=== PATIENT | female | born 1945 | race Caucasian/White ===

== ENCOUNTER 2017-10-19 08:40 | Outpatient (CLI) | payer MEDICARE, OTHER ==
--- NOTE | 2017-10-19 12:46 | DEXA Report ---
Reason: OSTEOPOROSIS,UNSPECIFIED OSTEOPOROSIS TYPE Procedure Date: 10/19/2017 Accession Number: [id number] / [id number] Procedure: DEX - Dexa Spine and/or Hip CPT Code: FULL RESULT: EXAM: Dexa Spine and/or Hip DATE: 10/19/2017 9:09 AM CLINICAL HISTORY: Osteoporosis, unspecified OSTEOPOROSIS TYPE TECHNIQUE: Dual energy x-ray absorptiometry (DXA) was performed on a FaceAlert[employer] System. Regions measured are the AP Spine, femoral neck, and if needed forearm. COMPARISON: None. In accordance with the International Society for Clinical Densitometry (ISCD) guidelines, data from previous exams may be reanalyzed using current recommendations and techniques. This is done to allow a more accurate basis for comparison with the current study. FINDINGS: The data for the lumbar spine is as follows: BMD (g/cm/cm) T-SCORE Z-SCORE REGION L1 0.944 -1.6 0.1 L2 1.086 -1.0 0.7 L3 1.085 -1.0 0.7 L4 1.066 -1.1 0.5 TOTAL 1.049 -1.1 0.5 NOTE: All evaluable vertebrae are used for classification The data for the hip is as follows: BMD (g/cm/cm) T-SCORE Z-SCORE REGION Neck 0.820 -1.6 0.1 TOTAL 0.860 -1.2 0.3 NOTE: The femoral neck or total proximal femur, whichever is lowest, is used for classification. IMPRESSION: THE WHO CLASSIFICATION BASED ON THE INTERNATIONAL REFERENCE STANDARD IS OSTEOPENIA. THE FRACTURE RISK IS INCREASED. RECOMMENDATION: Patients with diagnosis of osteoporosis or osteopenia should have regular bone mineral density assessment. For those eligible for Medicare, routine testing is allowed once every 2 years. Testing frequency can be increased for patients who have rapidly progressing disease or for those who are receiving medical therapy to restore bone mass. COMMENT: World Health Organization (WHO) definitions for osteoporosis and osteopenia: NORMAL BMD: T-score at -1.0 or higher, fracture risk is low OSTEOPENIA BMD: T-score between -1.0 and -2.5, fracture risk is increased. OSTEOPOROSIS BMD: T-score at -2.5 or lower, fracture risk is high. National Osteoporosis Foundation recommends: 1. Obtain adequate dietary calcium (at least 1200 mg per day) and vitamin D (400-800 international units per day). 2. Participate, as appropriate, in regular weightbearing and muscle-strengthening exercise. 3. Avoid tobacco use and reduce alcohol and caffeine intake. 4. For more detailed information see the website at www.NOF.org.
== END 2017-10-19 08:41 | disposition home or self-care (01) ==
LOC: DI 08:40
PROVIDERS: ATTEND Family Medicine Sports Medicine
DX: M85.89 Other specified disorders of bone density and structure, multiple sites (principal)
CPT/HCPCS: 77080

== ENCOUNTER 2017-10-19 16:48 | Emergency (ER) | payer MEDICARE, OTHER ==
--- NOTE | 2017-10-19 19:07 | ED Physician Documentation ---
PD HPI FOCAL NEURO - Stated complaint Stated Complaint: LEFT FACE/HAND TINGLE - Chief complaint Chief Complaint: Neuro - History obtained from History obtained from: Patient - History of Present Illness Timing - onset: Other (72-year-old woman who has what she says was a TIA 2 months ago with left-sided deficits. She always had persistent numbness of the left thumb over the last 2 weeks that numbness has spread to the left second and third digits and over the last 2 days has had numbness of the fourth and fifth digits as well as the face. It is incomplete. It is just tingling. There is no associated weakness with it. No nausea or severe headache. No vision complaints. She said she had an MRI on that admission that was negative and carotid Dopplers that showed a 50% stenosis of the left carotid without clear follow-up. She is on aspirin.) Review of Systems Constitutional: denies: Fever, Chills Respiratory: reports: Reviewed and negative GI: reports: Reviewed and negative : reports: Reviewed and negative PD PAST MEDICAL HISTORY - Allergies Allergies/Adverse Reactions: Allergies Allergy/AdvReac Type Severity Reaction Status Date / Time No Known Drug Allergies Allergy Verified 10/19/17 17:11 PD ED PE NORMAL - Vitals Vital signs reviewed: Yes - General General: Alert and oriented X 3, No acute distress - HEENT HEENT: PERRL, EOMI - Neck Neck: Supple, no meningeal sign, No bony TTP - Cardiac Cardiac: RRR, No murmur - Respiratory Respiratory: Clear bilaterally - Abdomen Abdomen: Non tender - Neuro Neuro: Alert and oriented X 3, acoustical engineer 2-12 intact Eye Opening: Spontaneous Motor: Obeys Commands Verbal: Oriented GCS Score: 15 NIHSS - Time Time: 19:00 - Level of Consciousness Level of consciousness: (0) Alert, Keenly responsive LOC Questions: (0) Answers both Q's correct LOC Commands: (0) Performs both correctly - Gaze Best Gaze: (0) Normal - Visual Visual: (0) No loss - Facial Palsy Facial Palsy: (0) Normal, symmetrical movement - Motor Arms (both separate) Motor Arm (right): (0) No drift Motor Arm (left): (0) No drift - Motor Legs (both separate) Motor Leg (right): (0) No drift Motor Leg (left): (0) No drift - Limb Ataxia Limb Ataxia: (0) Absent - Sensory Sensory: (1) Xnaw-sy-ffplyhse loss (Very mild loss on the left hand ulnar side and left face.) - Best Language Best Language: (0) No aphasia - Dysarthria Dysarthria: (0) Normal - Extinction and Inattention (formally neg Extinction and inattention: (0) No abnormality - Total Score/Results Total Score/Result: 1 Results - Vitals Vitals: Vital Signs - 24 hr 10/19/17 17:00 Temperature 36.3 C L Heart Rate 74 Respiratory 16 Rate Blood Pressure 140/79 H O2 Saturation 97 Oxygen O2 Source Room air - Labs Labs: Laboratory Tests 10/19/17 10/19/17 19:12 19:12 WBC 4.7 L RBC 4.42 Hgb 12.1 Hct 36.1 L MCV 81.5 MCH 27.3 MCHC 33.4 RDW 15.8 H Plt Count 163 MPV 7.5 L Neut # (Auto) 2.5 Lymph # (Auto) 1.8 [place] # (Auto) 0.3 Eos # (Auto) 0.1 Baso # (Auto) 0.0 Absolute Nucleated RBC 0.00 Nucleated RBC % 0.0 Sodium 137 Potassium 3.4 L Chloride 103 Carbon Dioxide 25 Anion Gap 9.0 BUN 27 H Creatinine 1.1 H Estimated GFR (MDRD) 49 L Glucose 123 H Calcium 9.5 Total Bilirubin 0.2 AST 30 ALT 23 Alkaline Phosphatase 78 Total Protein 7.5 Albumin 4.5 Globulin 3.0 Albumin/Globulin Ratio 1.5 Lipase 88 H - Rads (name of study) Ct Head Radiology: Final report received (Mild scattered microangiopathy changes without acute disease.) PD MEDICAL DECISION MAKING - ED course ED course: 72-year-old woman who had what sounds like small stroke 2 months ago albeit with normal MRI per her presents with mild but progressive symptoms, in the setting of a negative head CT. Neurologic follow-up was advised. - Sepsis Event Vital Signs: Vital Signs - 24 hr 10/19/17 17:00 Temperature 36.3 C L Heart Rate 74 Respiratory 16 Rate Blood Pressure 140/79 H O2 Saturation 97 Oxygen O2 Source Room air Departure - Departure Disposition: 01 Home, Self Care Clinical Impression: Stroke-like symptoms Condition: Good Record reviewed to determine appropriate education?: Yes Instructions: ED Stroke Completed Comments: Continue current medications. Follow-up with your doctor and discuss neurologic referral.
[2017-10-19 19:18] LABS: BASOPHILS % (AUTO) 0.3 %; EOSINOPHILS # (AUTO) 0.1 10^3/uL (0.0-0.7); HGB - HEMOGLOBIN 12.1 g/dL (12.0-16.0); LYMPHOCYTES # (AUTO) 1.8 10^3/uL (1.5-3.5); LYMPHOCYTES % (AUTO) 38.4 %; MEAN CORPUSCULAR HEMOGLOBIN 27.3 pg (27.0-31.0); MEAN CORPUSCULAR HGB CONC 33.4 g/dL (32.0-36.0); MEAN CORPUSCULAR VOLUME 81.5 fL (81.0-99.0); MEAN PLATELET VOLUME 7.5 fL (7.9-10.8); MONOCYTES # (AUTO) 0.3 10^3/uL (0.0-1.0); MONOCYTES % (AUTO) 5.5 %; NEUTROPHILS # (AUTO) 2.5 10^3/uL (1.5-6.6); NEUTROPHILS % (AUTO) 53.8 %; PLT - PLATELET COUNT 163 10^3/uL (130-450); RED BLOOD COUNT 4.42 10^6/uL (4.20-5.40); RED CELL DISTRIBUTION WIDTH 15.8 % (12.0-15.0); WHITE BLOOD COUNT 4.7 x10^3/uL (4.8-10.8)
[2017-10-19 19:32] LABS: ALBUMIN 4.5 g/dL (3.2-5.5); ALBUMIN/GLOBULIN RATIO 1.5 (1.0-2.2); BILIRUBIN,TOTAL 0.2 mg/dL (0.2-1.0); CALCIUM 9.5 mg/dL (8.5-10.3); CREATININE 1.1 mg/dL (0.4-1.0); TOTAL PROTEIN 7.5 g/dL (6.7-8.2)
--- NOTE | 2017-10-19 20:05 | CT Report ---
Reason: L hand numb Procedure Date: 10/19/2017 Accession Number: [id number] / [id number] Procedure: CT - Head W/O CPT Code: FULL RESULT: EXAM: CT HEAD EXAM DATE: 10/19/2017 07:22 PM. CLINICAL HISTORY: L hand numb. COMPARISON: None. TECHNIQUE: Multiaxial CT images were obtained from the foramen magnum to the vertex. Reformats: Sagittal and coronal. IV contrast: None. In accordance with CT protocol optimization, one or more of the following dose reduction techniques were utilized for this exam: automated exposure control, adjustment of mA and/or KV based on patient size, or use of iterative reconstructive technique. FINDINGS: Parenchyma: No intraparenchymal hemorrhage. No evidence of mass, midline shift, or CT findings of infarction. Carvalho-white differentiation is distinct. Scattered periventricular and deep white matter hypodensities, nonspecific, favored to represent sequela of chronic microangiopathy. Extraaxial Spaces: Normal for age. No subdural or epidural collections identified. Ventricles: Normal in size and position. Sinuses and Orbits: Imaged paranasal sinuses, orbits, and mastoids show no significant abnormality. Bones: No evidence of fracture or calvarial defect. Other: None. IMPRESSION: 1. No CT evidence of acute intracranial abnormality, specifically no CT evidence of acute infarct, intracranial hemorrhage, mass effect, midline shift, or hydrocephalus. 2. Scattered periventricular and deep white matter hypodensities, nonspecific, favored to represent sequela of chronic microangiopathy. RADIA
[2017-10-19 20:27] VITALS: BP 172/53
== END 2017-10-19 20:30 | disposition home or self-care (01) ==
LOC: ED 16:48
DX: R20.0 Anesthesia of skin (principal); M85.89 Other specified disorders of bone density and structure, multiple sites; Z86.73 Personal history of transient ischemic attack (TIA), and cerebral infarction without residual deficits; Z79.82 Long term (current) use of aspirin
CPT/HCPCS: 36415; 70450; 77080; 80053; 83690; 85025; 99283; 99284

== ENCOUNTER 2018-02-11 15:33 | Emergency (ER) | payer MEDICARE, OTHER ==
--- NOTE | 2018-02-11 15:57 | ED Physician Documentation ---
History of Present Illness - Stated complaint Stated Complaint: WEAKNESS/CONFUSION - Chief complaint Chief Complaint: Neuro - Additonal information Additional information: hx from pt and family 72 female has alzheimers lives at [facility] to ED today CC confusion and falls X several days no fever no cough no NVD no headache does not think she hit her head (she fell in her closet which is full of clothes and thus well padded) no neck pain no chest pain no abdominal pain does have urinary freq no new med changes but unclear how correctly she has been managing her meds at home - the list from her PMD has many meds crossed out that are still in pts med basket Review of Systems Constitutional: denies: Fever, Chills Throat: denies: Sore throat Cardiac: denies: Chest pain / pressure, Palpitations Respiratory: denies: Dyspnea, Cough GI: denies: Abdominal Pain, Nausea, Vomiting, Diarrhea : denies: Dysuria Musculoskeletal: denies: Neck pain, Back pain Neurologic: reports: Altered mental status. denies: Focal weakness, Numbness, Difficulty speaking, Headache, Head injury Immunocompromised: denies: Immunocompromised PD PAST MEDICAL HISTORY - Present Medications Home Medications: Ambulatory Orders Medication Instructions Recorded Confirmed Cephalexin [Keflex] 500 mg PO Q6H #28 capsule 02/11/18 - Allergies Allergies/Adverse Reactions: Allergies Allergy/AdvReac Type Severity Reaction Status Date / Time No Known Drug Allergies Allergy Verified 10/19/17 17:11 PD ED PE NORMAL - Vitals Vital signs reviewed: Yes - General General: No: Alert and oriented X 3 (2) - HEENT HEENT: Atraumatic, PERRL - Neck Neck: Supple, no meningeal sign - Cardiac Cardiac: RRR - Respiratory Respiratory: No respiratory distress, Clear bilaterally - Abdomen Abdomen: Non tender - Derm Derm: Normal color - Neuro Neuro: grievance and appeals specialist 2-12 intact, No motor deficit, No sensory deficit, Normal speech, Other (NIHSS 1 (for confusion) no focal motor sensory speech vision hearing deficits). No: Alert and oriented X 3 (X 2) Results - Vitals Vitals: Vital Signs - 24 hr 02/11/18 15:45 Temperature 36.3 C L Heart Rate 73 Respiratory 18 Rate Blood Pressure 143/70 H O2 Saturation 97 Oxygen O2 Source Room air - EKG (time done) 1542 Rate: Rate (enter#) Rhythm: NSR, Other (PVCs) Intervals: Normal GA. No: Prolonged QT QRS: Normal Ischemia: Non specific changes - Labs Labs: Laboratory Tests 02/11/18 02/11/18 02/11/18 16:35 16:35 16:35 WBC 4.4 L RBC 4.35 Hgb 12.1 Hct 36.6 L MCV 84.2 MCH 27.7 MCHC 32.9 RDW 15.2 H Plt Count 168 MPV 7.7 L Neut # (Auto) 2.5 Lymph # (Auto) 1.5 [place] # (Auto) 0.3 Eos # (Auto) 0.1 Baso # (Auto) 0.0 Absolute Nucleated RBC 0.00 Nucleated RBC % 0.0 Sodium 138 Potassium 4.3 Chloride 100 L Carbon Dioxide 25 Anion Gap 13.0 BUN 23 H Creatinine 1.5 H Estimated GFR (MDRD) 34 L Glucose 99 Calcium 10.7 H Troponin I < 0.04 Urine Color Urine Clarity Urine pH Ur Specific [place] Urine Protein Urine Glucose (UA) Urine Ketones Urine Occult Blood Urine Nitrite Urine Bilirubin Urine Urobilinogen Ur Leukocyte Esterase Urine RBC Urine WBC Ur Squamous Epith Cells Urine Bacteria Ur Microscopic Review Urine Culture Comments 02/11/18 17:00 WBC RBC Hgb Hct MCV MCH MCHC RDW Plt Count MPV Neut # (Auto) Lymph # (Auto) [place] # (Auto) Eos # (Auto) Baso # (Auto) Absolute Nucleated RBC Nucleated RBC % Sodium Potassium Chloride Carbon Dioxide Anion Gap BUN Creatinine Estimated GFR (MDRD) Glucose Calcium Troponin I Urine Color YELLOW Urine Clarity CLEAR Urine pH 7.5 Ur Specific [place] 1.015 Urine Protein NEGATIVE Urine Glucose (UA) NEGATIVE Urine Ketones NEGATIVE Urine Occult Blood NEGATIVE Urine Nitrite NEGATIVE Urine Bilirubin NEGATIVE Urine Urobilinogen 0.2 (NORMAL) Ur Leukocyte Esterase SMALL H Urine RBC None Seen Urine WBC 4-5 Ur Squamous Epith Cells MANY Squamous H Urine Bacteria Few Ur Microscopic Review INDICATED Urine Culture Comments NOT INDICATED - Rads (name of study) CXR Radiology: See rad report (mild cardiomegaly, otherwise no acute) CTH Radiology: See rad report (no acute process, chronic atrophic and likely microvascular ischemic changes) PD MEDICAL DECISION MAKING - ED course ED course: renal insuff is new elev calcium level also new but doubt high enough to cause confusion merit outpt fup UA not a good clean catch but best she could do and + leuk est WBC bacteria - and she has sx of freq so will tx suspect weakness confusion and falls are a combo of UTI and medications - while in the ER her daughter went through the updated list from PMD and removed all the meds the pt is no longer supposed to be taking from her basket road test with a walker went well pt lives at [facility] where she can be observed and assisted and has a very watchful daughter feel safe to dc with a walker on antibiotics on her new pruned medication regimen Departure - Departure Disposition: Home, Self Care Clinical Impression: Weakness, Confusion UTI (urinary tract infection) Qualifiers: Urinary tract infection type: site unspecified Hematuria presence: without hematuria Qualified Code(s): N39.0 - Urinary tract infection, site not specified Condition: Good Instructions: ED UTI Cystitis Female, ED Walker Use, ED Fall Dizziness Weakn Balance Follow-Up: Manny Greenfield MD [Primary Care Provider] - Prescriptions: Cephalexin [Keflex] 500 mg PO Q6H #28 capsule Comments: The CT scan of your brain was fine. The chest xray was fine Your EKG showed a few extra beats but otherwise was fine Your labs were notable for renal insufficiency and a slightly elevated calcium level today - these results are unlikely to be related to your symptoms - please follow up with your PMD for a recheck and further evaluation I think the weakness and confusion are due to 2 things 1) you have a bladder infection 2) you had medications in your basket that you are not supposed to be taking any more Given he reassuring work up, an since you live at [facility], where there is staff to observe and assist you, I think it is safe to let you go home. Please ask for assistance when getting up to transfer or ambulate - and use the walker we gave you. Take the antibiotics I prescribed. And only take the medication on the new updated list your daughter has finalized for you Follow up with Dr Greenfield for a recheck next week. Return to the ER if worse in any way over the weekend - we are always open
--- NOTE | 2018-02-11 16:35 | CT Report ---
Reason: AMS falling Procedure Date: 02/11/2018 Accession Number: [id number] / [id number] Procedure: CT - Head W/O CPT Code: FULL RESULT: EXAM: CT HEAD EXAM DATE: 02/11/2018 04:11 PM. CLINICAL HISTORY: Altered mental status. Multiple falls. COMPARISON: HEAD W/O 10/19/2017 7:22 PM. TECHNIQUE: Multiaxial CT images were obtained from the foramen magnum to the vertex. Reformats: Sagittal and coronal. IV contrast: None. In accordance with CT protocol optimization, one or more of the following dose reduction techniques were utilized for this exam: automated exposure control, adjustment of mA and/or KV based on patient size, or use of iterative reconstructive technique. FINDINGS: Parenchyma: No intraparenchymal hemorrhage. No evidence of mass, midline shift, or CT findings of infarction. Carvalho-white differentiation is distinct. Mild to moderate patchy white matter hypodensity in the periventricular white matter and centrum semiovale suggesting chronic microvascular ischemic change. Extraaxial Spaces: Normal for age. No subdural or epidural collections identified. Ventricles: Normal in size and position aircraft pneudraulic systems mechanic for mild generalized cerebral and cerebellar volume loss. Sinuses and Orbits: Imaged paranasal sinuses, orbits, and mastoids show no significant abnormality. Bones: No evidence of fracture or calvarial defect. Other: None. IMPRESSION: 1. No definite acute intracranial abnormality. 2. Chronic atrophic and probable microvascular ischemic changes as noted above. RADIA
[2018-02-11 16:43] LABS: BASOPHILS % (AUTO) 0.6 %; EOSINOPHILS # (AUTO) 0.1 10^3/uL (0.0-0.7); EOSINOPHILS % (AUTO) 1.9 %; HGB - HEMOGLOBIN 12.1 g/dL (12.0-16.0); LYMPHOCYTES # (AUTO) 1.5 10^3/uL (1.5-3.5); LYMPHOCYTES % (AUTO) 34.8 %; MEAN CORPUSCULAR HEMOGLOBIN 27.7 pg (27.0-31.0); MEAN CORPUSCULAR HGB CONC 32.9 g/dL (32.0-36.0); MEAN CORPUSCULAR VOLUME 84.2 fL (81.0-99.0); MEAN PLATELET VOLUME 7.7 fL (7.9-10.8); MONOCYTES # (AUTO) 0.3 10^3/uL (0.0-1.0); MONOCYTES % (AUTO) 5.8 %; NEUTROPHILS # (AUTO) 2.5 10^3/uL (1.5-6.6); NEUTROPHILS % (AUTO) 56.9 %; PLT - PLATELET COUNT 168 10^3/uL (130-450); RED BLOOD COUNT 4.35 10^6/uL (4.20-5.40); RED CELL DISTRIBUTION WIDTH 15.2 % (12.0-15.0); WHITE BLOOD COUNT 4.4 x10^3/uL (4.8-10.8)
--- NOTE | 2018-02-11 16:50 | XRAY Report ---
Reason: ams Procedure Date: 02/11/2018 Accession Number: [id number] / [id number] Procedure: XR - Chest 2 View X-Ray CPT Code: 05169 FULL RESULT: EXAM: CHEST RADIOGRAPHY EXAM DATE: 02/11/2018 04:27 PM. CLINICAL HISTORY: Altered mental status. COMPARISON: None. TECHNIQUE: 2 views. FINDINGS: Lungs/Pleura: No focal opacities evident. No pleural effusion. No pneumothorax. Normal volumes. Mediastinum: Mild cardiomegaly. Other: No compression fractures. IMPRESSION: Mild cardiomegaly, otherwise unremarkable 2-view chest radiography. RADIA
[2018-02-11 16:52] LABS: CALCIUM 10.7 mg/dL (8.5-10.3); CREATININE 1.5 mg/dL (0.4-1.0)
[2018-02-11 17:34] LABS: BILIRUBIN,URINE NEGATIVE (NEGATIVE); GLUCOSE, URINE (UA) NEGATIVE (NEGATIVE); KETONES,URINE (UA) NEGATIVE (NEGATIVE); LEUKOCYTE ESTERASE, URINE SMALL (NEGATIVE); NITRITE,URINE NEGATIVE (NEGATIVE); OCCULT BLOOD,URINE NEGATIVE (NEGATIVE); PH,URINE 7.5 PH (5.0-7.5); PROTEIN,URINE NEGATIVE (NEGATIVE); UROBILINOGEN,URINE 0.2 (NORMAL) E.U./dL (NORMAL)
[2018-02-11 17:38] LABS: CLARITY,URINE CLEAR (CLEAR)
[2018-02-11 17:43] LABS: BACTERIA,URINE Few /HPF (None Seen); RBC,URINE None Seen /HPF (0-5); SQUAMOUS EPITHELIAL CELL,UR MANY Squamous (<= Few)
[2018-02-11] MEDS ORDERED: cephALEXin 250 MG CAPSULE PO STA (17:57)
[2018-02-11 18:22] VITALS: BP 138/70
== END 2018-02-11 18:22 | disposition home or self-care (01) ==
LOC: ED 15:33
DX: R53.1 Weakness (principal); R41.0 Disorientation, unspecified; N39.0 Urinary tract infection, site not specified; G30.9 Alzheimer's disease, unspecified; F02.80 Dementia in other diseases classified elsewhere, unspecified severity, without behavioral disturbance, psychotic disturbance, mood disturbance, and anxiety
CPT/HCPCS: 36415; 70450; 71046; 80048; 81001; 84484; 85025; 93005; 99283; 99284; A9270; 81003; 87086

== ENCOUNTER 2018-04-03 12:13 | Emergency (ER) | payer MEDICARE, OTHER ==
--- NOTE | 2018-04-03 12:40 | ED Physician Documentation ---
PD HPI ALTERED MENTAL STATUS - Stated complaint Stated Complaint: GLF - Chief complaint Chief Complaint: General - History obtained from History obtained from: Patient - History of Present Illness Timing - onset: How many weeks ago (The patient and her daughter are present and states she has had progressive weakness as well as some confusion over the last couple of weeks. This is been to the point of needing a walker now which is unusual for her. She states she is has difficulty getting up and walking. She has not noticed problems with hand dexterity or holding things. She has been slow to answer questions at times and mostly is been able to talk in normal conversation. She did have a fall 2 days ago where she fell out of bed against the wall. She denied any injury to the head or neck though. She states she is felt more weak generally since that time. She has not had a noticed weight loss.) Timing - duration: Weeks (2) Timing - details: Gradual onset Quality / character: Confused, Other (general weakness) Associated symptoms: General weakness. No: Fever, Headache, Dyspnea, Cough, NVD, Urinary sx Contributing factors: Recent med change (Her medication list from [facility] sent with her shows a new medication of bupropion started 1 month ago. Other medic ations except for a foot cream are the same for several months or more. She does take a statin medication but says she has been on that for a long time.). No: Anticoagulated Basline status: Alert and oriented X 3, Ambulatory Similar symptoms before: Has not had sx before Recently seen: Clinic (1 month ago) Review of Systems Constitutional: reports: Fatigue. denies: Fever, Chills, Myalgias Nose: denies: Rhinorrhea / runny nose, Congestion Throat: denies: Sore throat Respiratory: denies: Cough GI: denies: Abdominal Pain, Nausea, Vomiting, Diarrhea : denies: Dysuria, Frequency Skin: denies: Rash, Lesions Neurologic: reports: Generalized weakness (more of the proximal muscles rather than hands/feet), Confused. denies: Focal weakness, Numbness, Near syncope, Altered mental status, Headache Psychiatric: denies: Anxiety, Insomnia PD PAST MEDICAL HISTORY - Past Medical History Cardiovascular: Hypertension, High cholesterol Respiratory: COPD Neuro: TIA Endocrine/Autoimmune: Type 2 diabetes - Past Surgical History Past Surgical History: Yes General: Cholecystectomy, Appendectomy Ortho: Rotator cuff repair, Other - Present Medications Home Medications: Ambulatory Orders Medication Instructions Recorded Confirmed Cephalexin [Keflex] 500 mg PO Q6H #28 capsule 02/11/18 - Allergies Allergies/Adverse Reactions: Allergies Allergy/AdvReac Type Severity Reaction Status Date / Time No Known Drug Allergies Allergy Verified 04/03/18 12:25 - Social History Does the pt smoke?: No Smoking Status: Never smoker Does the pt drink ETOH?: Yes Does the pt have substance abuse?: No - Immunizations Immunizations are current?: Yes PD ED PE NORMAL - Vitals Vital signs reviewed: Yes - General General: Alert and oriented X 3, No acute distress, Well developed/nourished - HEENT HEENT: Ears normal, Pharynx benign - Neck Neck: Supple, no meningeal sign, No adenopathy, Thyroid normal - Cardiac Cardiac: RRR, No murmur - Respiratory Respiratory: No respiratory distress, Clear bilaterally - Abdomen Abdomen: Normal bowel sounds, Soft, Non tender - Female Female : Deferred - Rectal Rectal: Deferred - Back Back: No CVA TTP - Derm Derm: Normal color, Warm and dry - Extremities Extremities: No tenderness to palpate, Normal ROM s pain, No edema, No calf tenderness / cord - Neuro Neuro: Alert and oriented X 3, patient partner 2-12 intact, No sensory deficit, Normal speech. No: No motor deficit ([facility] counseling [facility] manager and plantar flexion seems strong. She does have most difficulty with leg raise and hip flexion and arm lift so seems to be more proximal and trunk muscles. She requires help getting to sit up from lying in the bed.) Eye Opening: Spontaneous Motor: Obeys Commands Verbal: Oriented GCS Score: 15 Results - Vitals Vitals: Vital Signs - 24 hr 04/03/18 04/03/18 04/03/18 12:18 14:18 16:00 Temperature 36.3 C L 36.4 C L Heart Rate 72 67 66 Respiratory 18 18 16 Rate Blood Pressure 140/81 H 152/64 H 139/69 H O2 Saturation 96 95 95 Oxygen O2 Source Room air - Labs Labs: Laboratory Tests 04/03/18 04/03/18 04/03/18 14:15 14:15 14:15 WBC 5.8 RBC 4.54 Hgb 12.8 Hct 37.5 MCV 82.7 MCH 28.1 MCHC 34.0 RDW 14.3 Plt Count 161 MPV 7.8 L Neut # (Auto) 3.5 Lymph # (Auto) 1.8 [place] # (Auto) 0.3 Eos # (Auto) 0.1 Baso # (Auto) 0.0 Absolute Nucleated RBC 0.00 Nucleated RBC % 0.0 ESR Sodium 140 Potassium 3.9 Chloride 102 Carbon Dioxide 25 Anion Gap 13.0 BUN 24 H Creatinine 1.6 H Estimated GFR (MDRD) 32 L Glucose 80 Lactic Acid 1.2 Calcium 10.6 H Magnesium 1.3 L Total Bilirubin 0.8 AST 32 ALT 22 Alkaline Phosphatase 83 Total Creatine Kinase 33 Total Protein 7.4 Albumin 4.7 Globulin 2.7 Albumin/Globulin Ratio 1.7 Lipase 57 H TSH Urine Color Urine Clarity Urine pH Ur Specific [place] Urine Protein Urine Glucose (UA) Urine Ketones Urine Occult Blood Urine Nitrite Urine Bilirubin Urine Urobilinogen Ur Leukocyte Esterase Urine RBC Urine WBC Ur Squamous Epith Cells Urine Bacteria Ur Microscopic Review Urine Culture Comments Ethyl Alcohol < 5.0 04/03/18 04/03/18 04/03/18 14:15 14:15 Unknown WBC RBC Hgb Hct MCV MCH MCHC RDW Plt Count MPV Neut # (Auto) Lymph # (Auto) [place] # (Auto) Eos # (Auto) Baso # (Auto) Absolute Nucleated RBC Nucleated RBC % ESR 23 Sodium Potassium Chloride Carbon Dioxide Anion Gap BUN Creatinine Estimated GFR (MDRD) Glucose Lactic Acid Calcium Magnesium Total Bilirubin AST ALT Alkaline Phosphatase Total Creatine Kinase Total Protein Albumin Globulin Albumin/Globulin Ratio Lipase TSH 1.46 Urine Color YELLOW Urine Clarity HAZY Urine pH 7.5 Ur Specific [place] 1.015 Urine Protein NEGATIVE Urine Glucose (UA) NEGATIVE Urine Ketones NEGATIVE Urine Occult Blood NEGATIVE Urine Nitrite NEGATIVE Urine Bilirubin NEGATIVE Urine Urobilinogen 0.2 (NORMAL) Ur Leukocyte Esterase TRACE H Urine RBC 0-5 Urine WBC 0-3 Ur Squamous Epith Cells MOD Squamous H Urine Bacteria Few Ur Microscopic Review INDICATED Urine Culture Comments NOT INDICATED Ethyl Alcohol - Rads (name of study) head CT Radiology: Prelim report reviewed (no acute injury/process), See rad report chest xray Radiology: Prelim report reviewed (no infiltrates.) PD MEDICAL DECISION MAKING - ED course Complexity details: reviewed results, considered differential, d/w patient, d/w family (daughter) Departure - Departure Disposition: 01 Home, Self Care Clinical Impression: Proximal muscle weakness, Confusion Condition: Stable Record reviewed to determine appropriate education?: Yes Instructions: ED Weakness UKO Follow-Up: Manny Greenfield MD [Primary Care Provider] - Comments: Your basic CT scan and blood tests and urine test appear normal here. In terms might relate to medications. Certainly proximal muscle weakness is in frequent but known side effect of the statin medications. I would suggest stopping your atorvastatin. The Wellbutrin was the most recent medication change and what with the onset of your symptoms so I would suggest decreasing the Wellbutrin dose back down to 150 or even 100 mg. You have slightly elevated calcium level so we can decrease the calcium dosage as well. Stay well-hydrated. I might also consider decreasing the metoclopramide from 3 to 2 times a day or perhaps going down to 5 mg a dose as this can lead to some confusion and interact with the antidepressants. So in summation my recommendations would be: decrease the calcium citrate to 2 tablets twice a day Decrease the metoclopramide to 5 mg per dose 3 times a day Decrease the bupropion to 100 mg daily * Stop the atorvastatin * Discharge Date/Time: 04/03/18 16:00
[2018-04-03] MEDS ORDERED: SODIUM CHLORIDE 0.9% 1,000 ML IV ONE (13:08)
--- NOTE | 2018-04-03 14:02 | CT Report ---
Reason: fall 2 days ago; general weakness arms/legs Procedure Date: 04/03/2018 Accession Number: [id number] / [id number] Procedure: CT - CERVICAL SPINE WO CPT Code: FULL RESULT: EXAM: CT CERVICAL SPINE WITHOUT CONTRAST DATE: 04/03/2018 01:35 PM. HISTORY: Fall 2 days ago; general weakness arms/legs. COMPARISONS: CERVICAL SPINE W/O 04/03/2018 1:33 PM. TECHNIQUE: Thin-section axial images were acquired of the cervical spine without contrast. Post-processing: Coronal and sagittal reformats. Other: None. In accordance with CT protocol optimization, one or more of the following dose reduction techniques were utilized for this exam: automated exposure control, adjustment of mA and/or KV based on patient size, or use of iterative reconstructive technique. FINDINGS: Alignment: Straightening of the cervical spine, which may be due to c-collar placement or muscle spasm. Bones: No fracture or bone lesion. Interspace Levels/Facets: Diffuse degenerative diskogenic changes, severe at the C5-C7 levels. Musculature: No fatty atrophy. Other: The paravertebral and prevertebral soft tissues are unremarkable. The lung apices are clear. IMPRESSION: No evidence for acute osseous injury cervical spine. Multilevel degenerative diskogenic change. RADIA
--- NOTE | 2018-04-03 14:06 | CT Report ---
Reason: fell 2 days ago; general weakness and slow talk Procedure Date: 04/03/2018 Accession Number: [id number] / [id number] Procedure: CT - HEAD WO CPT Code: FULL RESULT: EXAM: CT HEAD EXAM DATE: 04/03/2018 01:35 PM. CLINICAL HISTORY: Fell 2 days ago; general weakness and slow talk. COMPARISON: CERVICAL SPINE W/O 04/03/2018 1:33 PM HEAD W/O 02/11/2018 4:02 PM. TECHNIQUE: Multiaxial CT images were obtained from the foramen magnum to the vertex. Reformats: Sagittal and coronal. IV contrast: None. In accordance with CT protocol optimization, one or more of the following dose reduction techniques were utilized for this exam: automated exposure control, adjustment of mA and/or KV based on patient size, or use of iterative reconstructive technique. FINDINGS: Parenchyma: No intraparenchymal hemorrhage. No evidence of mass, midline shift, or CT findings of acute infarction. Deep white matter hypodensities, nonspecific orifice suggestive of chronic microvascular ischemic disease. Extraaxial Spaces: No subdural or epidural collections identified. Ventricles: Normal in size and position. Sinuses and Orbits: Imaged paranasal sinuses, orbits, and mastoids show no significant abnormality. Bones: No evidence of fracture or calvarial defect. Other: None. IMPRESSION: No evidence for acute intracranial injury. RADIA
[2018-04-03 14:07] LABS: BILIRUBIN,URINE NEGATIVE (NEGATIVE); GLUCOSE, URINE (UA) NEGATIVE (NEGATIVE); KETONES,URINE (UA) NEGATIVE (NEGATIVE); LEUKOCYTE ESTERASE, URINE TRACE (NEGATIVE); NITRITE,URINE NEGATIVE (NEGATIVE); OCCULT BLOOD,URINE NEGATIVE (NEGATIVE); PH,URINE 7.5 PH (5.0-7.5); PROTEIN,URINE NEGATIVE (NEGATIVE); UROBILINOGEN,URINE 0.2 (NORMAL) E.U./dL (NORMAL)
[2018-04-03 14:12] LABS: CLARITY,URINE HAZY (CLEAR)
[2018-04-03 14:31] LABS: BASOPHILS % (AUTO) 0.4 %; EOSINOPHILS # (AUTO) 0.1 10^3/uL (0.0-0.7); EOSINOPHILS % (AUTO) 1.3 %; HGB - HEMOGLOBIN 12.8 g/dL (12.0-16.0); LYMPHOCYTES # (AUTO) 1.8 10^3/uL (1.5-3.5); LYMPHOCYTES % (AUTO) 31.9 %; MEAN CORPUSCULAR HEMOGLOBIN 28.1 pg (27.0-31.0); MEAN CORPUSCULAR VOLUME 82.7 fL (81.0-99.0); MEAN PLATELET VOLUME 7.8 fL (7.9-10.8); MONOCYTES # (AUTO) 0.3 10^3/uL (0.0-1.0); MONOCYTES % (AUTO) 5.8 %; NEUTROPHILS # (AUTO) 3.5 10^3/uL (1.5-6.6); NEUTROPHILS % (AUTO) 60.6 %; PLT - PLATELET COUNT 161 10^3/uL (130-450); RED BLOOD COUNT 4.54 10^6/uL (4.20-5.40); RED CELL DISTRIBUTION WIDTH 14.3 % (12.0-15.0); WHITE BLOOD COUNT 5.8 x10^3/uL (4.8-10.8)
[2018-04-03 14:32] LABS: RBC,URINE 0-5 /HPF (0-5)
[2018-04-03 14:33] LABS: BACTERIA,URINE Few /HPF (None Seen); SQUAMOUS EPITHELIAL CELL,UR MOD Squamous (<= Few)
[2018-04-03 14:40] LABS: ALBUMIN 4.7 g/dL (3.2-5.5); ALBUMIN/GLOBULIN RATIO 1.7 (1.0-2.2); ALKALINE PHOSPHATASE 83 IU/L (42-121); ALT ALANINE AMINOTRANSFERASE 22 IU/L (10-60); AST ASPARTATE AMINOTRANSFERASE 32 IU/L (10-42); BILIRUBIN,TOTAL 0.8 mg/dL (0.2-1.0); BUN - BLOOD UREA NITROGEN 24 mg/dL (6-20); CALCIUM 10.6 mg/dL (8.5-10.3); CARBON DIOXIDE - CO2 25 mmol/L (21-32); CHLORIDE 102 mmol/L (101-111); CK- CREATINE KINASE 33 IU/L (22-269); CREATININE 1.6 mg/dL (0.4-1.0); GFR - MDRD 32 (>89); GLUCOSE 80 mg/dL (70-100); LIPASE 57 U/L (22-51); MAGNESIUM 1.3 mg/dL (1.7-2.8); SODIUM 140 mmol/L (135-145); TOTAL PROTEIN 7.4 g/dL (6.7-8.2)
--- NOTE | 2018-04-03 14:44 | XRAY Report ---
Reason: general weakness Procedure Date: 04/03/2018 Accession Number: [id number] / [id number] Procedure: XR - Chest 1 View X-Ray CPT Code: 30165 FULL RESULT: EXAM: CHEST RADIOGRAPHY EXAM DATE: 04/03/2018 02:06 PM. CLINICAL HISTORY: General weakness. COMPARISON: None. TECHNIQUE: 1 view. FINDINGS: Lungs/Pleura: No focal opacities evident. No pleural effusion. No pneumothorax. Mediastinum: Within exam limitations, the cardiomediastinal contour is normal. Other: None. IMPRESSION: No focal consolidation. RADIA
[2018-04-03] MEDS ORDERED: MAGNESIUM SULFATE 2 GRAM 2 GM/50 ML BAG IV ONE (14:55)
[2018-04-03 16:02] VITALS: BP 139/69
== END 2018-04-03 16:00 | disposition home or self-care (01) ==
LOC: ED 12:13
DX: M62.81 Muscle weakness (generalized) (principal); R41.0 Disorientation, unspecified; I10 Essential (primary) hypertension; E78.00 Pure hypercholesterolemia, unspecified; Z86.73 Personal history of transient ischemic attack (TIA), and cerebral infarction without residual deficits; E11.9 Type 2 diabetes mellitus without complications
CPT/HCPCS: 36415; 70450; 71045; 72125; 80053; 80320; 81001; 81003; 82550; 83605; 83690; 83735; 84443; 85025; 85651; 87086; 96361; 96365; 99283; 99284

== ENCOUNTER 2018-04-29 14:00 | Outpatient (CLI) | payer MEDICARE, OTHER ==
[2018-04-29 14:23] LABS: BASOPHILS % (AUTO) 0.6 %; EOSINOPHILS # (AUTO) 0.1 10^3/uL (0.0-0.7); EOSINOPHILS % (AUTO) 1.3 %; LYMPHOCYTES # (AUTO) 1.8 10^3/uL (1.5-3.5); LYMPHOCYTES % (AUTO) 29.8 %; MEAN CORPUSCULAR HEMOGLOBIN 28.2 pg (27.0-31.0); MEAN CORPUSCULAR VOLUME 82.8 fL (81.0-99.0); MEAN PLATELET VOLUME 7.6 fL (7.9-10.8); MONOCYTES # (AUTO) 0.4 10^3/uL (0.0-1.0); MONOCYTES % (AUTO) 6.2 %; NEUTROPHILS # (AUTO) 3.6 10^3/uL (1.5-6.6); NEUTROPHILS % (AUTO) 62.1 %; PLT - PLATELET COUNT 173 10^3/uL (130-450); RED BLOOD COUNT 4.27 10^6/uL (4.20-5.40); RED CELL DISTRIBUTION WIDTH 14.9 % (12.0-15.0); WHITE BLOOD COUNT 5.9 x10^3/uL (4.8-10.8)
[2018-04-29 14:41] LABS: ALBUMIN 4.5 g/dL (3.2-5.5); ALBUMIN/GLOBULIN RATIO 1.6 (1.0-2.2); ALKALINE PHOSPHATASE 70 IU/L (42-121); ALT ALANINE AMINOTRANSFERASE 51 IU/L (10-60); AST ASPARTATE AMINOTRANSFERASE 56 IU/L (10-42); BILIRUBIN,TOTAL 0.5 mg/dL (0.2-1.0); BUN - BLOOD UREA NITROGEN 46 mg/dL (6-20); CARBON DIOXIDE - CO2 25 mmol/L (21-32); CHLORIDE 101 mmol/L (101-111); CREATININE 1.8 mg/dL (0.4-1.0); GFR - MDRD 28 (>89); GLUCOSE 112 mg/dL (70-100); SODIUM 137 mmol/L (135-145); TOTAL PROTEIN 7.4 g/dL (6.7-8.2)
[2018-04-29 14:42] LABS: CRP - C-REACTIVE PROTEIN < 1.0 mg/dL (0-1.0)
[2018-04-29 14:55] LABS: THYROID STIMULATING HORMONE 0.93 uIU/mL (0.34-5.60)
[2018-04-29 14:57] LABS: FREE T4 (FREE THYROXINE) 0.68 ng/dL (0.58-1.64)
[2018-04-29] MEDS ORDERED: IOVERSOL 320 50 ML VIAL ONE (15:21)
[2018-04-29] MEDS ORDERED: IOVERSOL 320 50 ML VIAL PO ONE (16:02)
--- NOTE | 2018-04-30 05:14 | CT Report ---
Reason: DIARRHEA, UNSPECIFIED Procedure Date: 04/29/2018 Accession Number: [id number] / [id number] Procedure: CT - Abdomen/Pelvis WO CPT Code: FULL RESULT: EXAM: CT ABDOMEN AND PELVIS (CT KUB) EXAM DATE: 04/29/2018 04:01 PM. CLINICAL HISTORY: Diarrhea, unspecified. COMPARISONS: None. TECHNIQUE: Routine axial helical CT imaging was performed through the abdomen and pelvis without IV contrast. Enteric contrast: Present. Reconstructions: Coronal and sagittal. In accordance with CT protocol optimization, one or more of the following dose reduction techniques were utilized for this exam: automated exposure control, adjustment of mA and/or KV based on patient size, or use of iterative reconstructive technique. FINDINGS: Lack of intravenous contrast reduces exam sensitivity and specificity. Kidneys and Ureters: No stones. No hydronephrosis or hydroureter. No definite renal mass within the confines of a non-contrast exam. Abdominal Solid Organs: Subtle findings of hepatic cirrhosis. Elongated left hepatic lobe, extending over the spleen in the left upper quadrant. Bowel: There is a medium sized diverticulum of the second portion of the duodenum. No evidence of bowel obstruction. There is moderate to severe sigmoid diverticulosis. No definite acute diverticulitis. Average to moderate amount of retained colonic fecal matter. Appendix: Prior appendectomy. Lymph Nodes: No definite pathologic lymphadenopathy. Fluid: No significant ascites. Vasculature: Normal caliber aorta. There is moderate to severe aortic and branch vessel atherosclerosis. Pelvis: No bladder stones. Post menopausal appearance of the uterus and ovaries noted. Bones: No definite suspicious bony lesions demonstrated. There is mild anterolisthesis of L5 relative to S1. There is a lumbarized S1. Moderate to severe lower lumbar facet arthropathy. Lower Chest: No significant lung base consolidation or effusion. Small calcified left lung base granuloma. IMPRESSION: 1. No urinary tract stones or obstruction. 2. With regards to the provided history of diarrhea, there is average to moderate amount of formed fecal material within the colon. 3. Prior appendectomy. 4. Subtle findings of hepatic cirrhosis. Prior cholecystectomy. RADIA
== END 2018-04-29 14:01 | disposition home or self-care (01) ==
LOC: DI 14:00
PROVIDERS: ATTEND Surgery
DX: R19.7 Diarrhea, unspecified (principal); K74.60 Unspecified cirrhosis of liver; Z90.49 Acquired absence of other specified parts of digestive tract
CPT/HCPCS: 36415; 74176; 80053; 84439; 84443; 85025; 85651; 86140

== ENCOUNTER 2018-05-07 11:09 | Outpatient (CLI) | payer MEDICARE, OTHER | END 2018-05-07 23:59 | disposition home or self-care (01) | LOC: LAB.R 11:09 | PROVIDERS: ATTEND Surgery | DX: R19.7 Diarrhea, unspecified (principal) | CPT/HCPCS: 87045; 87046; 87177; 87209; 87493 ==

== ENCOUNTER 2018-05-16 10:14 | Outpatient (CLI) | payer MEDICARE, OTHER | END 2018-05-16 10:15 | disposition critical access hospital (66) | LOC: EMS 10:14 | PROVIDERS: ATTEND Surgery | DX: R53.1 Weakness (principal) | CPT/HCPCS: A0425; A0429 ==

== ENCOUNTER 2018-05-16 10:33 | Emergency (ER) | payer MEDICARE, OTHER ==
--- NOTE | 2018-05-16 10:49 | ED Physician Documentation ---
PD HPI NVD - Stated complaint Stated Complaint: WEAKNESS - Chief complaint Chief Complaint: General - History obtained from History obtained from: Patient - History of Present Illness Timing - onset: How many days ago (patient says she has felt weaker for the past 4-5 days and today had trouble getting out of bed without assistance. Nurse at [facility] called EMS to have patient brought for evaluation. No abrupt change today. No focal weaknesses.) Timing - duration: Days Timing - details: Gradual onset Associated symptoms: Loss of appetite, Other (patient denies vomiting nor diarrhea, but mostly not feeling hungry and some nausea.). No: Fever, Abdominal pain Contributing factors: No: Sick contact, Bad food Similar symptoms before: Has not had sx before (her grandson says she has had slow decline over months, with poor intake and has lost 30 lbs estimated. Patient reportedly just doesn't want to eat.) Review of Systems Constitutional: denies: Fever Nose: denies: Rhinorrhea / runny nose, Congestion Throat: denies: Sore throat Cardiac: denies: Chest pain / pressure Respiratory: denies: Cough GI: reports: Nausea. denies: Abdominal Pain, Vomiting, Diarrhea : denies: Dysuria, Frequency Neurologic: reports: Generalized weakness. denies: Focal weakness, Numbness PD PAST MEDICAL HISTORY - Past Medical History Cardiovascular: Hypertension, High cholesterol Respiratory: COPD Neuro: TIA Endocrine/Autoimmune: Type 2 diabetes - Past Surgical History Past Surgical History: Yes General: Cholecystectomy, Appendectomy Ortho: Rotator cuff repair, Other - Present Medications Home Medications: Ambulatory Orders Medication Instructions Recorded Confirmed Cephalexin [Keflex] 500 mg PO Q6H #28 capsule 02/11/18 Nitrofurantoin Monohyd/M-Cryst 100 mg PO BID #14 capsule 05/16/18 [Macrobid 100 mg Capsule] - Allergies Allergies/Adverse Reactions: Allergies Allergy/AdvReac Type Severity Reaction Status Date / Time No Known Drug Allergies Allergy Verified 05/16/18 10:40 - Social History Does the pt smoke?: No Smoking Status: Never smoker Does the pt drink ETOH?: Yes Does the pt have substance abuse?: No - Immunizations Immunizations are current?: Yes PD ED PE NORMAL - Vitals Vital signs reviewed: Yes - General General: Alert and oriented X 3, No acute distress, Well developed/nourished - Neck Neck: Supple, no meningeal sign, No adenopathy - Cardiac Cardiac: RRR, No murmur - Respiratory Respiratory: Clear bilaterally - Abdomen Abdomen: Soft, Non tender, Non distended, No organomegaly - Back Back: No CVA TTP - Derm Derm: Normal color, Warm and dry - Extremities Extremities: No deformity, No edema, No calf tenderness / cord - Neuro Neuro: Alert and oriented X 3, news anchor 2-12 intact, No motor deficit, No sensory deficit, Normal speech Results - Vitals Vitals: Vital Signs - 24 hr 05/16/18 05/16/18 10:35 13:04 Temperature 36.1 C L Heart Rate 67 68 Respiratory 16 18 Rate Blood Pressure 136/74 H 122/61 O2 Saturation 95 94 Oxygen O2 Source Room air - EKG (time done) 10:44 Rate: Rate (enter#) (67) Rhythm: NSR (with significant artifact) Intervals: Prolonged RI QRS: Normal Ischemia: Normal ST segments. No: ST elevation c/w ischemia, ST depression - Labs Labs: Laboratory Tests 05/16/18 05/16/18 05/16/18 10:45 11:15 11:15 WBC 6.9 RBC 4.62 Hgb 12.8 Hct 37.9 MCV 82.1 MCH 27.7 MCHC 33.8 RDW 14.2 Plt Count 194 MPV 7.8 L Neut # (Auto) 4.0 Lymph # (Auto) 2.4 [place] # (Auto) 0.5 Eos # (Auto) 0.1 Baso # (Auto) 0.0 Absolute Nucleated RBC 0.00 Nucleated RBC % 0.0 Sodium 136 Potassium 3.6 Chloride 97 L Carbon Dioxide 27 Anion Gap 12.0 BUN 54 H Creatinine 2.2 H Estimated GFR (MDRD) 22 L Glucose 111 H Lactic Acid Calcium 10.5 H Magnesium 1.5 L Total Bilirubin 0.7 AST 41 ALT 37 Alkaline Phosphatase 68 Total Creatine Kinase Troponin I B-Natriuretic Peptide Total Protein 7.8 Albumin 4.7 Globulin 3.1 Albumin/Globulin Ratio 1.5 Lipase 54 H TSH Urine Color YELLOW Urine Clarity HAZY Urine pH 5.5 Ur Specific [place] 1.025 Urine Protein NEGATIVE Urine Glucose (UA) NEGATIVE Urine Ketones NEGATIVE Urine Occult Blood NEGATIVE Urine Nitrite NEGATIVE Urine Bilirubin NEGATIVE Urine Urobilinogen 0.2 (NORMAL) Ur Leukocyte Esterase SMALL H Urine RBC 0-5 Urine WBC 6-10 H Ur Squamous Epith Cells MOD Squamous H Urine Bacteria Few Ur Microscopic Review INDICATED Urine Culture Comments NOT INDICATED Influenza A (Rapid) Influenza B (Rapid) 05/16/18 05/16/18 05/16/18 11:15 11:15 11:15 WBC RBC Hgb Hct MCV MCH MCHC RDW Plt Count MPV Neut # (Auto) Lymph # (Auto) [place] # (Auto) Eos # (Auto) Baso # (Auto) Absolute Nucleated RBC Nucleated RBC % Sodium Potassium Chloride Carbon Dioxide Anion Gap BUN Creatinine Estimated GFR (MDRD) Glucose Lactic Acid 1.2 Calcium Magnesium Total Bilirubin AST ALT Alkaline Phosphatase Total Creatine Kinase Troponin I < 0.04 B-Natriuretic Peptide 17 Total Protein Albumin Globulin Albumin/Globulin Ratio Lipase TSH Urine Color Urine Clarity Urine pH Ur Specific [place] Urine Protein Urine Glucose (UA) Urine Ketones Urine Occult Blood Urine Nitrite Urine Bilirubin Urine Urobilinogen Ur Leukocyte Esterase Urine RBC Urine WBC Ur Squamous Epith Cells Urine Bacteria Ur Microscopic Review Urine Culture Comments Influenza A (Rapid) Influenza B (Rapid) 05/16/18 05/16/18 05/16/18 11:15 11:15 11:33 WBC RBC Hgb Hct MCV MCH MCHC RDW Plt Count MPV Neut # (Auto) Lymph # (Auto) [place] # (Auto) Eos # (Auto) Baso # (Auto) Absolute Nucleated RBC Nucleated RBC % Sodium Potassium Chloride Carbon Dioxide Anion Gap BUN Creatinine Estimated GFR (MDRD) Glucose Lactic Acid Calcium Magnesium Total Bilirubin AST ALT Alkaline Phosphatase Total Creatine Kinase 167 Troponin I B-Natriuretic Peptide Total Protein Albumin Globulin Albumin/Globulin Ratio Lipase TSH 2.13 Urine Color Urine Clarity Urine pH Ur Specific [place] Urine Protein Urine Glucose (UA) Urine Ketones Urine Occult Blood Urine Nitrite Urine Bilirubin Urine Urobilinogen Ur Leukocyte Esterase Urine RBC Urine WBC Ur Squamous Epith Cells Urine Bacteria Ur Microscopic Review Urine Culture Comments Influenza A (Rapid) Negative Influenza B (Rapid) Negative PD MEDICAL DECISION MAKING - ED course Complexity details: reviewed results, re-evaluated patient, considered differential, d/w patient, d/w family (grandson) Departure - Departure Disposition: 01 Home, Self Care Clinical Impression: Generalized weakness, Dehydration, Cystitis Condition: Stable Record reviewed to determine appropriate education?: Yes Follow-Up: Manny Greenfield MD [Primary Care Provider] - Prescriptions: Nitrofurantoin Monohyd/M-Cryst [Macrobid 100 mg Capsule] 100 mg PO BID #14 capsule Comments: Try to stay well-hydrated and eat regularly. Some signs of a mild infection in the bladder. This may be accounting for some added weakness over your baseline. Continue usual medications. Add Macrobid antibiotic for a week. Follow-up with your primary care. Discharge Date/Time: 05/16/18 14:05
[2018-05-16 11:10] LABS: GLUCOSE, URINE (UA) NEGATIVE (NEGATIVE); KETONES,URINE (UA) NEGATIVE (NEGATIVE); LEUKOCYTE ESTERASE, URINE SMALL (NEGATIVE); NITRITE,URINE NEGATIVE (NEGATIVE); OCCULT BLOOD,URINE NEGATIVE (NEGATIVE); PH,URINE 5.5 PH (5.0-7.5); PROTEIN,URINE NEGATIVE (NEGATIVE); UROBILINOGEN,URINE 0.2 (NORMAL) E.U./dL (NORMAL)
[2018-05-16] MEDS ORDERED: ONDANSETRON 4 MG/2 ML VIAL IVP STA (11:10)
[2018-05-16] MEDS ORDERED: SODIUM CHLORIDE 0.9% 1,000 ML IV ONE (11:10)
[2018-05-16 11:17] LABS: BILIRUBIN,URINE NEGATIVE (NEGATIVE); CLARITY,URINE HAZY (CLEAR); ICTOTEST,URINE NEGATIVE
[2018-05-16 11:22] LABS: BACTERIA,URINE Few /HPF (None Seen); RBC,URINE 0-5 /HPF (0-5); SQUAMOUS EPITHELIAL CELL,UR MOD Squamous (<= Few)
[2018-05-16 11:29] LABS: BASOPHILS % (AUTO) 0.2 %; EOSINOPHILS # (AUTO) 0.1 10^3/uL (0.0-0.7); EOSINOPHILS % (AUTO) 1.1 %; HGB - HEMOGLOBIN 12.8 g/dL (12.0-16.0); LYMPHOCYTES # (AUTO) 2.4 10^3/uL (1.5-3.5); LYMPHOCYTES % (AUTO) 34.4 %; MEAN CORPUSCULAR HEMOGLOBIN 27.7 pg (27.0-31.0); MEAN CORPUSCULAR HGB CONC 33.8 g/dL (32.0-36.0); MEAN CORPUSCULAR VOLUME 82.1 fL (81.0-99.0); MEAN PLATELET VOLUME 7.8 fL (7.9-10.8); MONOCYTES # (AUTO) 0.5 10^3/uL (0.0-1.0); MONOCYTES % (AUTO) 6.6 %; NEUTROPHILS % (AUTO) 57.7 %; PLT - PLATELET COUNT 194 10^3/uL (130-450); RED BLOOD COUNT 4.62 10^6/uL (4.20-5.40); RED CELL DISTRIBUTION WIDTH 14.2 % (12.0-15.0); WHITE BLOOD COUNT 6.9 x10^3/uL (4.8-10.8)
[2018-05-16 11:44] LABS: ALBUMIN 4.7 g/dL (3.2-5.5); ALBUMIN/GLOBULIN RATIO 1.5 (1.0-2.2); BILIRUBIN,TOTAL 0.7 mg/dL (0.2-1.0); CALCIUM 10.5 mg/dL (8.5-10.3); CREATININE 2.2 mg/dL (0.4-1.0); MAGNESIUM 1.5 mg/dL (1.7-2.8); TOTAL PROTEIN 7.8 g/dL (6.7-8.2)
[2018-05-16] MEDS ORDERED: NITROFURANTOIN MACRO 100 MG CAPSULE PO STA (12:53)
[2018-05-16 13:05] VITALS: BP 122/61
== END 2018-05-16 14:05 | disposition home or self-care (01) ==
LOC: EDUNIT# → ED 10:33
DX: R53.1 Weakness (principal); E86.0 Dehydration; N30.90 Cystitis, unspecified without hematuria; E11.9 Type 2 diabetes mellitus without complications; I10 Essential (primary) hypertension
CPT/HCPCS: 36415; 81001; 82550; 83605; 83690; 83735; 83880; 84484; 87275; 87276; 93005; 96361; 96374; 99283; 99284; A9270; 80053; 81003; 84443; 85025; 87086

== ENCOUNTER 2018-06-09 14:12 | Outpatient (CLI) | payer MEDICARE, OTHER ==
--- NOTE | 2018-06-20 09:34 | Mammography Report ---
Reason: ANNUAL SCREENING Procedure Date: 06/09/2018 Accession Number: [id number] / [id number] Procedure: [facility] - Screening Mammo Dig Bilat CPT Code: FULL RESULT: EXAM: Screening Mammo Dig Bilat DATE: 06/09/2018 2:49 PM CLINICAL HISTORY: Routine screening. No reported personal history of breast cancer. Family history breast cancer in mother at age 52. TECHNIQUE: (B) - Bilateral CC and MLO views were obtained. COMPARISON: 02/16/2017 through 07/14/2013 PARENCHYMAL PATTERN: (A) - The breasts demonstrate scattered fibroglandular densities bilaterally. FINDINGS: Bilateral breasts: There are no suspicious masses, calcifications, or areas of distortion. IMPRESSION: Negative examination. BI-RADS category 1. RECOMMENDATION: (ANNUAL) - Recommend routine annual screening mammography. BI-RADS CATEGORY: (1) - Negative. STANDARD QUALIFYING STATEMENTS: 1. This examination was not reviewed with the aid of Computer-Aided Detection (CAD). 2. A negative or benign imaging report should not preclude biopsy if clinically suspicious findings are present. 3. Dense breasts may obscure an underlying neoplasm. 4. This examination was reviewed without the aid of 3D breast imaging (tomosynthesis).
== END 2018-06-09 14:13 | disposition home or self-care (01) ==
LOC: DI 14:12
PROVIDERS: ATTEND Internal Medicine
DX: Z12.31 Encounter for screening mammogram for malignant neoplasm of breast (principal); Z80.3 Family history of malignant neoplasm of breast
CPT/HCPCS: 77067

== ENCOUNTER 2018-08-02 12:57 | Inpatient (IN) | payer MEDICARE, OTHER ==
--- NOTE | 2018-08-02 13:23 | ED Physician Documentation ---
PD HPI ALTERED MENTAL STATUS - Stated complaint Stated Complaint: WEAKNESS - Chief complaint Chief Complaint: General - History obtained from History obtained from: Patient, Family - History of Present Illness Timing - onset: How many days ago (1-2 days of some swelling of lips and not eating/ throat discomfort. Has had poor intake and appetite for 6-8 months preceding, but would eat and drink slowly. Report to family jason Gunter is patient not eating the past 1-2 days.), How many months ago (6-8 months of general weakness, less appetite and weight loss (67 kg here in November, 55 kg today, with steady decrease over time on ER visits).) Quality / character: Other (somewhat sleepy, not wanting to eat; poor interaction.) Associated symptoms: General weakness, Other (since yesterday, has some swelling of upper and lower lips and some discomfort swallowing.). No: Fever, Headache, Dyspnea, Cough Contributing factors: Other (Patient has had general weakness with some falling and steady weight loss over the last 6 to 8 months associated with poor appetite. She has been seen several times in the emergency room. A short summary is over the last 6 months or so she had been to her primary care doctor who is Dr. Manny Greenfield and had been placed on an antidepressant Wellbutrin I believe at 100 mg and had the dose increased 250 mg. Family reports the patient's alertness and desire to eat decreased and she seemed a little foggier with the dose increase. In the ER it was recommended we decrease the dose back down to 100 mg and that was done for a few weeks according to the family but that her primary increased it up again. There is also been suggestion of her statin medication contributing to proximal muscle weakness and recommended to discontinue that. Her daughter states they discontinue the statins for 1-1/2 to 2 months but then it was read the started by her primary care. There had not been other medication changes.). No: Recent med change, Recent illness Basline status: Alert and oriented X 3, Walker. No: Independent (The patient reportedly has had decreased weakness to where she needs help getting up but when she is upright can use her walker to get down to the dining room. She needs assistance with getting dressed. Her daughter states that takes her a long time to eat very little and she seems tired most of the time.) Similar symptoms before: Work up / diagnostics Recently seen: Clinic, Emergency Dept PD PAST MEDICAL HISTORY - Past Medical History Cardiovascular: Hypertension, High cholesterol Respiratory: COPD Neuro: TIA Endocrine/Autoimmune: Type 2 diabetes - Past Surgical History Past Surgical History: Yes General: Cholecystectomy, Appendectomy Ortho: Rotator cuff repair, Other - Present Medications Home Medications: Ambulatory Orders Medication Instructions Recorded Confirmed Acetaminophen [Tylenol Extra 1,000 mg PO Q6H PRN 08/02/18 08/02/18 Strength] Aspirin Chewable [St Rick 81 mg PO DAILY 08/02/18 08/02/18 Aspirin] Atorvastatin [Lipitor] 10 mg PO [id number]@199908/02/18 08/02/18 Calcium Citrate/Vitamin D3 1 each PO BIDWM 08/02/18 08/02/18 [Calcium Cit 200-Vit D3 250 Tab] Cetirizine [ZyrTEC] 10 mg PO QPM 08/02/18 08/02/18 Cholestyramine [Questran] 4 gm PO DAILY PRN 08/02/18 08/02/18 Ciclopirox 1 applic TOP QPM 08/02/18 08/02/18 Ciclopirox Olamine [Ciclopirox] 1 applic TOP DAILY 08/02/18 08/02/18 Docusate Sodium 250Mg Capsule 250 mg PO DAILY 08/02/18 08/02/18 [Colace 250Mg Capsule] Donepezil [Aricept] 5 mg PO QPM 08/02/18 08/02/18 LORazepam [Lorazepam] 0.125 mg PO QPM 08/02/18 08/02/18 Lidocaine HCl [Aspercreme] 1 applic TOP BID 08/02/18 08/02/18 Loperamide HCl [Loperamide] 2 mg PO Q2H PRN MDD 16mg 08/02/18 08/02/18 Loratadine [Claritin] 10 mg PO DAILY PRN 08/02/18 08/02/18 Multivitamin,Therapeutic [Thera] 1 each PO DAILY 08/02/18 08/02/18 Triamterene/Hydrochlorothiazid 1 each PO DAILY 08/02/18 08/02/18 [Triamterene-Hctz 37.5-25 mg Tb] Turmeric/Turmeric Root Extract 1 each PO DAILY 08/02/18 08/02/18 [Turmeric 500 mg Capsule] Wheat Dextrin [Benefiber] 1 each PO DAILY 08/02/18 08/02/18 Zolpidem [Ambien] 2.5 mg PO QPM 08/02/18 amLODIPine [Norvasc] 5 mg PO DAILY 08/02/18 08/02/18 buPROPion [Wellbutrin Xl] 150 mg PO DAILY 08/02/18 08/02/18 metFORMIN [Glucophage] 500 mg PO BIDWM 08/02/18 08/02/18 - Allergies Allergies/Adverse Reactions: Allergies Allergy/AdvReac Type Severity Reaction Status Date / Time No Known Drug Allergies Allergy Verified 05/16/18 10:40 - Living Situation Living Situation: reports: Alone, Other (family in the area and visit regularly) Living Arrangement: reports: shelter - Social History Does the pt smoke?: No Smoking Status: Never smoker Does the pt drink ETOH?: Yes Does the pt have substance abuse?: No - Immunizations Immunizations are current?: Yes PD ED PE NORMAL - Vitals Vital signs reviewed: Yes - General General: No: Alert and oriented X 3 (She is somnolent with eyes closed but opens them in response to verbal and tactile. Somewhat of a blank stare but will answer questions. There is an obvious swelling of both upper and lower lips and around her mouth. Oral exam showed slight swelling of the uvula. There is some whitish plaquing of the palate with some redness and irritation. There is a little bit of on swallowed food in the left buccal cheek.) - HEENT HEENT: PERRL, EOMI (no ptosis), Ears normal - Neck Neck: Supple, no meningeal sign, No adenopathy - Cardiac Cardiac: RRR, No murmur - Respiratory Respiratory: Clear bilaterally - Abdomen Abdomen: Soft, Non tender, Non distended. No: Normal bowel sounds (diminished) - Female Female : Deferred - Rectal Rectal: Deferred - Back Back: No CVA TTP - Derm Derm: Normal color, Warm and dry - Extremities Extremities: Normal ROM s pain, No edema - Neuro Neuro: sleeve wheel maker 2-12 intact, No sensory deficit, Other (She has general weakness. She is able to lift her arms and legs up off the cart. She can only hold her legs up off the cart for a few seconds. The left seems a little worse than the right. The arms are symmetrically weak. There is no facial droop noted. She is open to able to open her mouth symmetrically. Eye movement is normal. I do not see any ptosis) Eye Opening: To Voice Motor: Obeys Commands Verbal: Confused GCS Score: 13 Results - Vitals Vitals: Vital Signs - 24 hr 08/02/18 13:07 Temperature 36.5 C Heart Rate 69 Respiratory 18 Rate Blood Pressure 143/70 H O2 Saturation 96 Oxygen O2 Source Room air - Labs Labs: Laboratory Tests 08/02/18 08/02/18 08/02/18 14:05 14:05 14:05 WBC 7.0 RBC 4.71 Hgb 12.8 Hct 40.4 MCV 85.8 MCH 27.2 MCHC 31.7 L RDW 13.1 Plt Count 207 MPV 9.8 Neut # (Auto) 4.6 Lymph # (Auto) 1.5 Benzie # (Auto) 0.4 Eos # (Auto) 0.5 Baso # (Auto) 0.0 Absolute Nucleated RBC 0.00 Nucleated RBC % 0.0 Sodium 139 Potassium 4.0 Chloride 100 L Carbon Dioxide 26 Anion Gap 13.0 BUN 46 H Creatinine 1.8 H Estimated GFR (MDRD) 28 L Glucose 108 H Calcium 11.5 H Magnesium 1.6 L Total Bilirubin 0.7 AST 41 ALT 44 Alkaline Phosphatase 101 Total Creatine Kinase 146 Total Protein 8.6 H Albumin 4.9 Globulin 3.7 Albumin/Globulin Ratio 1.3 Lipase 45 TSH 1.50 Urine Color Urine Clarity Urine pH Ur Specific Endeavor Urine Protein Urine Glucose (UA) Urine Ketones Urine Occult Blood Urine Nitrite Urine Bilirubin Urine Urobilinogen Ur Leukocyte Esterase Ur Microscopic Review Urine Culture Comments 08/02/18 14:50 WBC RBC Hgb Hct MCV MCH MCHC RDW Plt Count MPV Neut # (Auto) Lymph # (Auto) Benzie # (Auto) Eos # (Auto) Baso # (Auto) Absolute Nucleated RBC Nucleated RBC % Sodium Potassium Chloride Carbon Dioxide Anion Gap BUN Creatinine Estimated GFR (MDRD) Glucose Calcium Magnesium Total Bilirubin AST ALT Alkaline Phosphatase Total Creatine Kinase Total Protein Albumin Globulin Albumin/Globulin Ratio Lipase TSH Urine Color YELLOW Urine Clarity CLEAR Urine pH 5.5 Ur Specific Endeavor 1.010 Urine Protein NEGATIVE Urine Glucose (UA) NEGATIVE Urine Ketones NEGATIVE Urine Occult Blood TRACE-INTA Urine Nitrite NEGATIVE Urine Bilirubin NEGATIVE Urine Urobilinogen 0.2 (NORMAL) Ur Leukocyte Esterase NEGATIVE Ur Microscopic Review NOT INDICATED Urine Culture Comments NOT INDICATED - Rads (name of study) head CT Radiology: Prelim report reviewed (no acute process seen), See rad report PD MEDICAL DECISION MAKING - ED course Complexity details: reviewed results, considered differential (She has had general ongoing weakness and weight loss for several months. However the new symptoms are not wanting to eat or drink at all for the last day or 2 and some swelling of her lips both upper and lower and decreased level of interaction and mentation. She had had that somewhat a couple of months ago on an ER visit and was thought to possibly related to an increased dose of Wellbutrin antidepressant as there had been the change starting few days after the dose increase. She has been returned back to the 150 mg dose in the last few weeks by her primary care. She had also had a return to her statin medication which have been discontinued at suggestion of the ER in case it was contributing to muscle weakness. She is still on the calcium supplementation according to her medication list.), d/w patient ED course: She is given IV hydration here. I think there is still the issue with some redness in her throat and some swelling of her lips of her ability to maintain hydration. There is the elevated calcium still and her general weakness and weight loss which should help by it are longer-term, but to figure into the equation currently with the edema of the lips and such and that her poor feeding and hydration generally are impaired even worse now with these current symptoms. I talked with the hospitalist who agrees to have her in the hospital for further care and evaluation. Departure - Departure Disposition: ED Place in Observation Clinical Impression: Throat discomfort, General weakness, Dehydration, Weight loss, Hypercalcemia Angioedema Qualifiers: Encounter type: initial encounter Qualified Code(s): T78.3XXA - Angioneurotic edema, initial encounter Altered mental status Qualifiers: Altered mental status type: somnolence Qualified Code(s): R40.0 - Somnolence Condition: Stable Record reviewed to determine appropriate education?: Yes
[2018-08-02] MEDS ORDERED: SODIUM CHLORIDE 0.9% 1,000 ML IV ONE ×2 (13:53→14:47)
[2018-08-02 14:12] LABS: BASOPHILS % (AUTO) 0.6 %; EOSINOPHILS # (AUTO) 0.5 10^3/uL (0.0-0.7); EOSINOPHILS % (AUTO) 6.4 %; HGB - HEMOGLOBIN 12.8 g/dL (12.0-16.0); LYMPHOCYTES # (AUTO) 1.5 10^3/uL (1.5-3.5); MEAN CORPUSCULAR HEMOGLOBIN 27.2 pg (27.0-31.0); MEAN CORPUSCULAR HGB CONC 31.7 g/dL (32.0-36.0); MEAN CORPUSCULAR VOLUME 85.8 fL (81.0-99.0); MEAN PLATELET VOLUME 9.8 fL (7.9-10.8); MONOCYTES # (AUTO) 0.4 10^3/uL (0.0-1.0); MONOCYTES % (AUTO) 5.6 %; NEUTROPHILS # (AUTO) 4.6 10^3/uL (1.5-6.6); NEUTROPHILS % (AUTO) 65.3 %; PLT - PLATELET COUNT 207 10^3/uL (130-450); RED BLOOD COUNT 4.71 10^6/uL (4.20-5.40); RED CELL DISTRIBUTION WIDTH 13.1 % (12.0-15.0)
--- NOTE | 2018-08-02 14:26 | CT Report ---
Reason: general weakness, falls Procedure Date: 08/02/2018 Accession Number: [id number] / [id number] Procedure: CT - HEAD WO CPT Code: FULL RESULT: EXAM: CT HEAD EXAM DATE: 08/02/2018 02:21 PM. CLINICAL HISTORY: General weakness, falls. COMPARISON: CERVICAL SPINE W/O 04/03/2018 1:35 PM. TECHNIQUE: Multiaxial CT images were obtained from the foramen magnum to the vertex. Reformats: Sagittal and coronal. IV contrast: None. In accordance with CT protocol optimization, one or more of the following dose reduction techniques were utilized for this exam: automated exposure control, adjustment of mA and/or KV based on patient size, or use of iterative reconstructive technique. FINDINGS: Parenchyma: No intraparenchymal hemorrhage. No evidence of mass, midline shift. Carvalho-white differentiation is distinct. Extraaxial Spaces: Basal cisterns are preserved. No subdural or epidural collections identified. Ventricles: Normal in size and position. Sinuses and Orbits: Imaged paranasal sinuses, orbits, and mastoids show no significant abnormality. Bones: No evidence of fracture or calvarial defect. Other: None. IMPRESSION: No acute intracranial abnormality is detected. RADIA
[2018-08-02 14:30] LABS: ALBUMIN 4.9 g/dL (3.2-5.5); ALBUMIN/GLOBULIN RATIO 1.3 (1.0-2.2); BILIRUBIN,TOTAL 0.7 mg/dL (0.2-1.0); CALCIUM 11.5 mg/dL (8.5-10.3); CREATININE 1.8 mg/dL (0.4-1.0); MAGNESIUM 1.6 mg/dL (1.7-2.8); TOTAL PROTEIN 8.6 g/dL (6.7-8.2)
[2018-08-02 15:02] LABS: BILIRUBIN,URINE NEGATIVE (NEGATIVE); GLUCOSE, URINE (UA) NEGATIVE (NEGATIVE); KETONES,URINE (UA) NEGATIVE (NEGATIVE); LEUKOCYTE ESTERASE, URINE NEGATIVE (NEGATIVE); NITRITE,URINE NEGATIVE (NEGATIVE); OCCULT BLOOD,URINE TRACE-INTA (NEGATIVE); PH,URINE 5.5 PH (5.0-7.5); PROTEIN,URINE NEGATIVE (NEGATIVE); UROBILINOGEN,URINE 0.2 (NORMAL) E.U./dL (NORMAL)
[2018-08-02 15:04] LABS: CLARITY,URINE CLEAR (CLEAR)
[2018-08-02] MEDS ORDERED: FLUCONAZOLE 100 MG TABLET PO STA (15:22)
[2018-08-02] MEDS ORDERED: DEXAMETHASONE 10 MG/ML VIAL IVP STA (15:55)
[2018-08-02] MEDS ORDERED: SODIUM CHLORIDE FLUSH 0.9% 10 ML SYRINGE IVP PRN (16:27)
[2018-08-02] MEDS ORDERED: ONDANSETRON 4 MG/2 ML VIAL IVP PRN (16:27)
[2018-08-02] MEDS ORDERED: ACETAMINOPHEN 325 MG TABLET PO PRN (16:27)
[2018-08-02] MEDS ORDERED: ONDANSETRON ODT 4 MG TABLET TL PRN (16:27)
[2018-08-02] MEDS ORDERED: PROCHLORPERAZINE 10 MG/2 ML VIAL IVP PRN (16:27)
[2018-08-02] MEDS: SODIUM CHLORIDE FLUSH 0.9% 10 ML SYRINGE IVP SCH (17:33)
[2018-08-02] MEDS: SODIUM CHLORIDE 0.9% 1,000 ML IV SCH (17:34)
[2018-08-02] MEDS: MAGNESIUM OXIDE 400 MG TABLET PO SCH (17:43)
[2018-08-02] MEDS: PANTOPRAZOLE 40 MG TABLET PO SCH (17:44)
[2018-08-02 20:21] LABS: HB2 TOTAL 13.5 g/dL; HEMOGLOBIN A1C 0.47 g/dL; HEMOGLOBIN A1C % 5.3 % (4.6-6.2)
[2018-08-02] MEDS: INSULIN ASPART 300 UNIT/3 ML PEN SUBQ SCH (22:13)
[2018-08-02] MEDS ORDERED: LOPERAMIDE 2 MG CAPSULE PO PRN (23:50)
[2018-08-02] MEDS ORDERED: CHOLESTYRAMINE 4 GM PACKET PO PRN (23:50)
[2018-08-02] MEDS ORDERED: LORATADINE 10 MG TABLET PO PRN (23:50)
[2018-08-03 05:53] LABS: CALCIUM 9.3 mg/dL (8.5-10.3); CREATININE 1.4 mg/dL (0.4-1.0)
[2018-08-03] MEDS: SODIUM CHLORIDE 0.9% 1,000 ML IV SCH (07:17)
[2018-08-03] MEDS: SODIUM CHLORIDE FLUSH 0.9% 10 ML SYRINGE IVP SCH ×3 (07:17→17:38)
[2018-08-03] MEDS: PANTOPRAZOLE 40 MG TABLET PO SCH (07:17)
[2018-08-03] MEDS: INSULIN ASPART 300 UNIT/3 ML PEN SUBQ SCH ×4 (11:23→22:06)
[2018-08-03] MEDS: buPROPion XL 150 MG TABLET PO SCH (11:37)
[2018-08-03] MEDS: ASPIRIN CHEW 81 MG TABLET PO SCH (11:37)
[2018-08-03] MEDS: DOCUSATE SODIUM 250 MG CAPSULE PO SCH (11:38)
[2018-08-03] MEDS: MAGNESIUM OXIDE 400 MG TABLET PO SCH (11:38)
[2018-08-03] MEDS: CALCIUM CITRATE 250 MG TABLET PO SCH ×2 (11:38→17:37)
[2018-08-03] MEDS: amLODIPine 5 MG TABLET PO SCH (11:38)
[2018-08-03] MEDS: POLYETHYLENE GLYCOL 3350 17 GM PACKET PO SCH (11:38)
[2018-08-03] MEDS: CHOLECALCIFEROL 400 UNIT TABLET PO SCH ×2 (11:38→17:37)
[2018-08-03] MEDS ORDERED: ZINC OXIDE 20% OINT 28.35 GM TUBE TOP PRN (17:24)
[2018-08-03] MEDS: MULTIVITAMIN W/MINERALS TABLET PO SCH (18:11)
--- NOTE | 2018-08-03 18:30 | PROVIDER PROGRESS NOTE ---
Subjective - Prog Note Date Prog Note Date: 08/03/18 Prog Note Time: 18:28 - Subjective Subjective: She is more alert. Able to get up with standby assist to go to the bathroom and sit back down again. She still has slightly swollen lips but not nearly as long as they were last night. What is more evident today is her antibiotics/slack bases. Left hand tremor. Sister is at the bedside. States that patient is almost back to baseline but not quite. Lip swelling is much better. Current Medications - Current Medications Current Medications: Active Medications Generic Name Dose Route Start Last Admin Trade Name Freq PRN Reason Stop Dose Admin Acetaminophen 650 mg 08/02/18 16:27 Tylenol PO Q4HR PRN Pain 1 to 4 Amlodipine Besylate 5 mg 08/03/18 09:00 08/03/18 11:38 Norvasc PO 5 mg DAILY ANISH Administration Aspirin 81 mg 08/03/18 09:00 08/03/18 11:37 St Rick Aspirin PO 81 mg DAILY ANISH Administration Atorvastatin Calcium 10 mg 08/03/18 20:00 Lipitor PO MOWEFR@2000 [facility] Bupropion HCl 150 mg 08/03/18 09:00 08/03/18 11:37 Wellbutrin Xl PO 150 mg DAILY [facility] Administration Calcium Citrate 250 mg 08/03/18 08:00 08/03/18 17:37 PO 250 mg BIDWM ANISH Administration Cetirizine HCl 10 mg 08/03/18 21:00 Zyrtec PO QPM [facility] Cholecalciferol 200 unit 08/03/18 08:00 08/03/18 17:37 Vitamin D3 PO 200 unit BIDWM [facility] Administration Cholestyramine/Sucrose 4 gm 08/02/18 23:50 Questran PO DAILY PRN Diarrhea Docusate Sodium 250 mg 08/03/18 09:00 08/03/18 11:38 Colace 250mg Capsule PO 250 mg DAILY ANISH Administration Donepezil HCl 5 mg 08/03/18 21:00 Aricept PO QPM [facility] Insulin Aspart 1 - 5 unit 08/02/18 21:00 08/03/18 17:38 Novolog SUBQ 2 unit 0800,1200,1700,2100 [facility] Administration Protocol Loperamide HCl 2 mg 08/02/18 23:50 Imodium PO Q2H PRN Diarrhea Loratadine 10 mg 08/02/18 23:50 Claritin PO DAILY PRN Allergy Symptoms Lorazepam 0.125 mg 08/03/18 21:00 Ativan PO QPM ANISH Magnesium Oxide 400 mg 08/02/18 17:00 08/03/18 11:38 Mag Ox PO 400 mg DAILYWM ANISH Administration Multi-Ingredient Ointment 1 applic 08/03/18 17:24 08/03/18 18:12 Zinc Oxide TOP 1 applic PRN PRN Administration Skin Care Multivitamins/Minerals 1 tab 08/03/18 18:00 08/03/18 18:11 Theragran M PO 1 tab DAILYWM [facility] Administration Ondansetron HCl 4 mg 08/02/18 16:27 Zofran Inj IVP Q6HR PRN Nausea / Vomiting Ondansetron HCl 4 mg 08/02/18 16:27 Zofran Odt TL Q6HR PRN Nausea / Vomiting Pantoprazole Sodium 40 mg 08/02/18 17:00 08/03/18 07:17 Protonix PO Not Given QDAC [facility] Polyethylene Glycol 17 gm 08/03/18 09:00 08/03/18 11:38 Miralax PO Not Given DAILY [facility] Prochlorperazine Edisylate 10 mg 08/02/18 16:27 Compazine Inj IVP Q6HR PRN Nausea / Vomiting Sodium Chloride 10 ml 08/02/18 16:27 Normal Saline Flush 0.9% IVP PRN PRN NEEDED PER PROVIDER ORDERS Sodium Chloride 10 ml 08/02/18 17:00 08/03/18 17:38 Normal Saline Flush 0.9% IVP 10 ml 0100,0900,1700 [facility] Administration Acetaminophen [Tylenol Extra Strength] 1,000 mg PO Q6H PRN 08/02/18 Aspirin Chewable [St Rick Aspirin] 81 mg PO DAILY 08/02/18 Atorvastatin [Lipitor] 10 mg PO MOWEFR@199908/02/18 Calcium Citrate/Vitamin D3 [Calcium Cit 200-Vit D3 250 Tab] 1 each PO BIDWM 08/02/18 Cetirizine [ZyrTEC] 10 mg PO QPM 08/02/18 Cholestyramine [Questran] 4 gm PO DAILY PRN 08/02/18 Ciclopirox 1 applic TOP QPM 08/02/18 Ciclopirox Olamine [Ciclopirox] 1 applic TOP DAILY 08/02/18 Docusate Sodium 250Mg Capsule [Colace 250Mg Capsule] 250 mg PO DAILY 08/02/18 Donepezil [Aricept] 5 mg PO QPM 08/02/18 LORazepam [Lorazepam] 0.125 mg PO QPM 08/02/18 Lidocaine HCl [Aspercreme] 1 applic TOP BID 08/02/18 Loperamide HCl [Loperamide] 2 mg PO Q2H PRN MDD 16mg 08/02/18 Loratadine [Claritin] 10 mg PO DAILY PRN 08/02/18 Multivitamin,Therapeutic [Thera] 1 each PO DAILY 08/02/18 Triamterene/Hydrochlorothiazid [Triamterene-Hctz 37.5-25 mg Tb] 1 each PO DAILY 08/02/18 Turmeric/Turmeric Root Extract [Turmeric 500 mg Capsule] 1 each PO DAILY 08/02/18 Wheat Dextrin [Benefiber] 1 each PO DAILY 08/02/18 amLODIPine [Norvasc] 5 mg PO DAILY 08/02/18 buPROPion [Wellbutrin Xl] 150 mg PO DAILY 08/02/18 metFORMIN [Glucophage] 500 mg PO BIDWM 08/02/18 Objective - Vital Signs/Intake & Output Reviewed Vital Signs: Yes Vital Signs: Vital Signs x48h Temp Pulse Resp BP Pulse Ox 08/03/18 16:42 36.5 C 67 16 119/52 L 96 Intake & Output: Intake & Output 07/31/18 08/01/18 08/02/18 08/03/18 23:59 23:59 23:59 23:59 Intake Total 2099 1954 Output Total 500 Balance 1599 1954 - Objective General Appearance: positive: No acute distress, Alert, Other (Slow shuffling gait to the bathroom and back. Surface the furniture. Does use a walker but tends to hold it in front of her and pick it up and turn it around when she wants to turn.) Eyes Bilateral: positive: PERRL, EOMI ENT: positive: Pharynx nml, Other (Still with lip edema but much improved from last night) Neck: positive: No JVD Respiratory: positive: Chest non-tender. negative: Wheezes, Rales, Rhonchi Cardiovascular: positive: Regular rate & rhythm. negative: Gallop/S4, Friction rub Abdomen: positive: Non-tender, No organomegaly, Nml bowel sounds Skin: positive: Warm, Dry Extremities: positive: Non-tender, Full ROM Neurologic/Psychiatric: positive: Oriented x3, CN's nml (2-12), Slurred/abnml speech (Psychomotor slurring especially with speech. Her sister says that this is the worst she is ever seen her.). negative: Motor nml (Slow shuffling gait, bradykinetic face, left hand tremor at rest) - Lab Results Fish Bones: 08/02/18 14:05 08/03/18 05:30 Other Labs: Lab Results x24hrs 08/03/18 08/03/18 08/03/18 Range/Units 16:38 11:33 07:31 Sodium (135-145) mmol/L Potassium (3.5-5.0) mmol/L Chloride (101-111) mmol/L Carbon Dioxide (21-32) mmol/L Anion Gap (6-13) BUN (6-20) mg/dL Creatinine (0.4-1.0) mg/dL Estimated GFR (MDRD) (>89) Glucose (70-100) mg/dL POC Whole Bld Glucose 197 H 167 H 119 H (70 - 100) mg/dL Glycated Hemoglobin (4.6-6.2) % Estim Average Glucose (70-100) Calcium (8.5-10.3) mg/dL 08/03/18 08/02/18 08/02/18 Range/Units 05:30 20:43 14:05 Sodium 141 (135-145) mmol/L Potassium 4.0 (3.5-5.0) mmol/L Chloride 104 (101-111) mmol/L Carbon Dioxide 24 (21-32) mmol/L Anion Gap 13.0 (6-13) BUN 34 H (6-20) mg/dL Creatinine 1.4 H (0.4-1.0) mg/dL Estimated GFR (MDRD) 37 L (>89) Glucose 141 H (70-100) mg/dL POC Whole Bld Glucose 173 H (70 - 100) mg/dL Glycated Hemoglobin 5.3 (4.6-6.2) % Estim Average Glucose 105 H (70-100) Calcium 9.3 (8.5-10.3) mg/dL Assessment/Plan - Problem List (1) Weakness of right side of body Impression: Resolved even before she got to the emergency room. This unfortunate lady does have risk factors for stroke. Sisters had a stroke. The patient herself has diabetes, hypertension, hyperlipidemia. She has a previous history of a stroke in July 2017. Plan: MRI of head Change to inpatient status (2) Altered mental status Impression: Improving but not completely resolved. I look for causes such as hyperparathyroidism, multiple myeloma. Her PTH is come back in its normal. Serum protein electrophoresis will be a send out lab. While her sister feels that she is on too many medications and is sedated, the patient is not getting any of those medications here. She is improved but not back at baseline. Qualifiers: Altered mental status type: somnolence Qualified Code(s): R40.0 - Somnolence (3) Angioedema Impression: This is 1 of many episodes. 50% improvement from yesterday to today. I would expect she will be resolved by tomorrow. Sister says this is about the usual time spent. Patient herself does not really remember previous episodes. Qualifiers: Encounter type: initial encounter Qualified Code(s): T78.3XXA - Angioneurotic edema, initial encounter (4) Dehydration Impression: Creatinine was 1.8 on admission and is now 1.4 with IV fluids. We will continue IV fluids overnight and discontinue in the morning. Recheck BMP in the morning. Decreased p.o. intake may be from medications, and as yet undiagnosed neurological disorder. She may not have the wherewithal to know she is not eating or drinking enough. (5) Hypercalcemia Impression: Normal PTH.Review SPEP with PCP when it gets resulted
--- NOTE | 2018-08-03 19:24 | HISTORY & PHYSICAL EXAMINATION ---
DATE OF SERVICE: 08/02/2018 Physician: Deanna Quinn MD PRIMARY CARE PROVIDER: Nav Mcelroy MD CHIEF COMPLAINT: Altered mental status with right body weakness. HISTORY OF PRESENT ILLNESS: The patient is a 73-year-old white female who has been deteriorating over the last 2 years with gentle but insidious memory loss. She has been evaluated by Neurology at the [facility]. The family is in the process of switching neurologist because of convenience to neurologist in [place]. While they really like the neurologist in [facility], it has been very difficult to get her all the way to [place], and that is why they switched her over to a new neurologist that she is going to be having an appointment with in 11/2018. She has been followed for the dementia and has had a previous CT and MRI, which were negative. In addition to the dementia, the patient has been having increasing falls, and starting to develop a hand tremor on the left arm. Her primary care provider in [place] did feel that the patient was developing parkinsonism. The provider started her on a Parkinson's drug that was a patch. The patch was $1500 a month. The patient could not afford this. The neurologist at [facility] was very unhappy that the patient was probably not thoroughly worked up yet and the patch was not warranted yet. This left the patient and her family in limbo as to what her diagnosis is, and when she could start appropriate treatment. Again, it is that they do not want to take her to the neurologist in [facility], but the logistics of getting her to the [facility] had proved too difficult to bring her back for a followup. As such, they are following up in November to see if the patient has Parkinson's, to then be started on medication then. In any case, one of her falls resulted in a fall down an embankment in the summer of 2017. She had a radius and ulnar fracture that resulted in surgery. It has been an excellent result, and she is almost got all of her function and flexion back in the right wrist. Around that same time, the patient had a small stroke or a TIA, resulting in a 24-hour overnight stay with the MRI done and CAT scan done. Family is not sure if the patient had carotids or a CT angiogram done or any angiogram. Because she could no longer live independently and was living by herself in [place], her sister moved her into [facility] in the summer of 2017, because of the memory loss and falls. She was starting to get into financial difficulties because she was compulsively and impulsively buying things on home shopping network. She loves her kitchen gadgets and started buying so many kitchen gadgets she no longer had room in her kitchen, with many, many unopened boxes for these kitchen gadgets. It was starting to impact her financially. As such, with moving into [facility], her sister, Ana Luisa, is her power of tax attorney. She has been living in [facility] since September or October 2017 and following her primary care provider in [place]. 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 Always the lips. It is not clear if it is related to some type of allergic response or true acquired angioneurotic edema. She has gone on and off medications to treat this angioneurotic edema, and FLETCHER inhibitors have not been involved as far as her sister knows. Most of my history is obtained from the sister since patient is pleasant, cooperative, but unable to really tell me a lucid history. Patient has been tried on various allergic drugs such as Zyrtec, Benadryl, Claritin without success. She has also been treated with Wellbutrin off and on, because of intermittent depression. Sometimes the [place] provider will put her on Wellbutrin, then an [place] provider will take her off Wellbutrin. Most recently, she was put back on the Wellbutrin in June for depression. But, the patient has been having decreasing appetite, losing a little bit of weight, and the sister worries that maybe the Wellbutrin may not be the right antidepressant in a patient who is losing weight. She has been able to establish herself with a new primary care provider, Dr. Mcelroy, and the sister thinks that she is going to be taken off her Wellbutrin. The sister is also worried that some of her memory loss, falls, and flat affect may be from polypharmacy. She would prefer her sister to be on as minimal amount of drugs as possible. With this history in place, the patient now presents with sudden onset of right- sided weakness. The assisted living facility and the sister wondered if she was having a TIA, as she did last year, or an ongoing stroke. As such, she was brought to the emergency room. Dr. Florez may not have been aware of all of this past medical history, and while she was being brought in for right-sided body weakness, his main concentration was on a history of failure to thrive, decreasing p.o. intake, increasing falls, and the swollen lips. He brought her in for angioneurotic edema and the failure to thrive. He called me in consultation from the emergency room after he evaluated her. Her CT of the head was unremarkable. Her CBC was normal, and her CMP showed a slight rise in BUN and creatinine to 1.8. Calcium is elevated at 11.5. With her previous visits to our institution, her calcium was 9.5 and has risen to 10.6-10.7 and tonight's is the worst it has been at 11.5. She has a high protein of 8.6. With previous visit, she was 7.5-7.8. Urinalysis is negative. As such, Dr. Florez is asking this patient be brought in because of altered mental status and angioneurotic edema, but the family wants her brought in for right-sided body weakness that has resolved since she has been brought into the emergency room. PAST MEDICAL HISTORY 1. Memory loss, tremors, falls. Current ongoing is possible Alzheimer's dementia. 2. Obstructive sleep apnea. 3. Osteoporosis with right arm fracture as stated above. The fall resulted in an ulna and radius fracture, 09/10/2017. Surgery was 09/21/2017. 4. Type 2 diabetes mellitus, controlled, without complications as far as his sister knows, not on long-term insulin. 5. Hypertension. 6. Transient ischemic attack versus cerebrovascular accident 07/2017, for which she was seen at [facility]. 7. Multiple tattoos around eyes for eyeliner, eyebrows and tattoos of the lips to make them permanently red and pink. Her last tattoo of her lips was 4 years ago and not recently. Angioneurotic edema started a year after her last tattoo. 8. History of recurrent urinary tract infections. SOCIAL HISTORY: She was born and raised in the [facility], mainly [place]. She has been 3 times and has been from her last marriage. She smoked starting at the age of 19 and smoked maybe 1 pack per day. She started in 1967 and stopped in 1989. She never had a problem with alcohol abuse. 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 She was living independently in [place]. Starting to have her memory problems. The fall in 09/2017 combined with the TIA in 06/2017 resulted in her being placed in an assisted living facility after her surgery 09/21/2017. While she does have 2 children, they have busy lives and are unable to be supportive enough to take care of her. As such, her sister is her power of tax attorney and is the reason she was brought to the [place] to live near her sister. FAMILY HISTORY Mom at age 64 of breast cancer. Dad at age 69 of liver cancer after having successfully stay dry from alcoholism for several years. Four siblings. There is high blood pressure, obstructive sleep apnea, stroke, skin cancer in her siblings. Two children are healthy without any blood pressure, stroke, cancer or diabetic problems. REVIEW OF SYSTEMS CONSTITUTIONAL: There has been gradual weight loss, gradual decreased appetite and some weight loss, but the weight loss has not been documented. No fevers, chills, sweats. HEENT: Tattooed eyeliner, eyebrows, lips. No dentures. Some mild deafness. No vision difficulties. Some dysphagia this last couple of days with the swollen lips. PULMONARY: No coughing, wheezing, chest congestion. No history of hemoptysis. She does have occasional cough with wheeze, but has never been diagnosed with COPD. No asthma is associated with her swollen lips. CARDIAC: Denies edema, orthopnea, chest pain, palpitations, arrhythmias, or valvular heart disease. GASTROINTESTINAL: Denies nausea, vomiting, diarrhea. No change in bowel habits. No blood in her stool. Unknown if she has had a recent colonoscopy. GENITOURINARY: Occasional urinary incontinence. She has recurrent UTIs. Currently no urgency, frequency or dysuria, as far as I can tell. According to the sister, the patient herself is alert enough to say that she is doing fine right now with regards to that. JOINTS: There are amazed at how well her right arm and hand and wrist have recovered from that fracture. They think that the orthopedic surgeon was brilliant because she has complete, almost normal range of motion in her right wrist, arm and elbow. She does not have any severe back pain or joint pain. SKIN: No new rashes, skin thickening, moles. PSYCHIATRIC: Sadness and mild dysthymia with her memory loss and loss of independence, but sister does not feel that depression is an active ongoing problem. No hallucinations. The patient herself does not seem to have insight about this. She looks at me and her sister and just says, "I don't think I have depression." ENDOCRINE: There has been some weight loss, she does have diabetes, but no polydipsia, polyphagia, polyuria. NEUROLOGY TECHNOLOGIST: TIA described as intermittent right body numbness and weakness that resolved within a matter of minutes, gradually decreasing memory. Increasing flat affect that is getting worse and worse with sedation, possibly related to medications. Sister feels she is overmedicated, but possibly related to as yet untreated Parkinson's disease. Gradually developing tremors in the left hand, present at rest and also present with intention. Increasing falls because of loss of balance with 1 large fall and was killing her in 09/2017. No seizures. No syncope. PHYSICAL EXAMINATION I am seeing the patient in her room after being transferred from the emergency room. VITAL SIGNS: Temperature is 36.9, pulse 69, blood pressure 146/63, respirations 18. She is 96% saturated on room air. GENERAL: The patient is in a darkened room, lying at about 35-40 degrees, eyes closed. I turn on the light, she remains asleep, but awakens to my voice. She is confused, masked facies, very slow psychomotor response. Almost appears sedated. She is 5 feet 1 inch tall and weighs 54.5 kg. HEENT: Remarkable for dense bluish purple eye shadow, the tattooed eye liner, the swollen red/pink lips that look like they have been recently injected. The patient is adamant that they have not been injected with collagen. While she does complain of throat tightness, there is no stridor, there is no dysphagia. Tongue is midline. Buccal mucosa is normal, gums are normal, tongue is not swollen. Uvula is not swollen. Pupils are reactive. Voice is low and slightly NECK: Supple. No goiter, bruits or stridor heard. LUNGS: Clear to auscultation and percussion without crackles, rhonchi or wheezing. There is no increased respiratory effort. She is very comfortable. CARDIAC: Regular rate and rhythm without murmurs, rubs, or gallops. ABDOMEN: Soft, nontender. Normal bowel sounds. No masses. EXTREMITIES: Warm. No clubbing, cyanosis or edema. There are no hives. No skin changes. She does have some ecchymoses where the IV was placed. Forearm also has a slight ecchymosis, especially on the right. NEUROLOGIC: She has psychomotor slowing with regard to speech and reaction time. Masked facies with anhedonic appearance, flat affect. A slight resting tremor in the left hand and forearm. Tzwxzz-gr-somd is slow, but normal with no past pointing and no tremor. No real cogwheel rigidity noted in either upper extremity or flexion/extension of the leg and hip. Toes are downgoing. There is no focal loss of strength. Right hand strength in a [id number]-huuadsgi patient is slightly stronger than the left hand strength, but essentially is same. The same with raising her legs individually off the bed. Plantar and dorsiflexion strength testing is normal. LABORATORY/DATA Sodium 139, potassium 4, BUN 46, creatinine 1.8, random glucose 108, calcium 11.5, magnesium 1.6, total protein 8.6. TSH is 1.5. Urinalysis is negative other than trace occult blood. There is no protein, glucose, ketones, nitrites, urobilinogen or leukocyte esterase. CT of the head is negative. ASSESSMENT/PLAN 1. Right-sided body weakness, already resolved. This is in a patient who has had a previous TIA/stroke admission in 07/2017 to [facility]. Risk factors are diabetes, hypertension, hyperlipidemia. Negative family history, other than her sister who did have a small stroke a few months ago, but mom and dad did not. She is a remote smoker, stopped smoking in 1989. Symptoms have completely resolved, no findings on physical exam other than the tremor and other problems. CT of head is negative. PLAN: Observation admission. MRI. We will get old records from [facility] to see if I need to repeat carotids or if she had an echo. 2. Nonspecific allergic reaction. Mainly manifested as angioneurotic edema of the lips. She has had a 3-year history of this. No agent associated with this, especially FLETCHER inhibitor. I could see in her MAR from [facility] that she has been treated with Zyrtec, Benadryl, and the patient herself states Claritin and sometimes even steroids in the past. At this time, no further treatment. There is no stridor, no problems with swallowing, even though she subjectively describes throat tightness. 3. Memory loss. In association with tremor, falls. The idea is of normal- pressure hydrocephalus, Parkinson's disease certainly are presenting themselves to me. She sees a neurologist in the [facility] and is about to see a new neurologist in 11/2018 in [place]. Other than the MRI, the patient can follow through with those neurological evaluations. 4. Type 2 diabetes mellitus, without documented complications, not on long-term insulin. PLAN: I prefer not to place patients in the hospital on metformin when there is any chance of possible fluid shift disorder or dehydration. She has some mild acute kidney injury indicating that she might be dehydrated. I will hold off on metformin and use sliding scale insulin. Check an A1c. 5. Hypercalcemia. Chronic, mild, now worsened. Could this be responsible for her altered mental status, anorexia, and weight loss? Will check PTH for hyperparathyroidism. We will also check serum protein electrophoresis for multiple myeloma, especially in view of the fact that she has an elevated protein level with her hypercalcemia. There is no anemia and only mild kidney insufficiency, not severe kidney disease. 6. Hypertension history. Current blood pressure 146/63. We will resume her usual medications. No medication change at this time. 7. Obstructive sleep apnea. Her mask was not brought with her. As such, she will not have it tonight. 8. FULL CODE STATUS at this time. 9. Deep venous thrombosis prophylaxis will be REBEKA white. TD: 08/03/2018 16:56 WANG
[2018-08-03] MEDS ORDERED: ATORVASTATIN 10 MG TABLET PO SCH (20:00)
--- NOTE | 2018-08-03 20:32 | MRI Report ---
Reason: gait ataxia, falls, memory loss Procedure Date: 08/03/2018 Accession Number: [id number] / [id number] Procedure: MRI - Brain W/O CPT Code: FULL RESULT: EXAM: MRI BRAIN WITHOUT CONTRAST. EXAM DATE: 08/03/2018 07:36 PM. CLINICAL HISTORY: Gait ataxia, falls, memory loss. COMPARISON: HEAD W/O 08/02/2018 2:14 PM. HEAD W/O 04/03/2018 1:35 PM. TECHNIQUE: Multiplanar, multisequence T1-weighted and fluid-sensitive MR sequences of the brain were performed. Sequences optimized for routine evaluation. Other: None. IV Contrast: None. FINDINGS: Brain Volume: Age-related volume loss is present. Parenchyma/Dura: No mass, acute infarct or hemorrhage. Mild to moderate white matter T2/FLAIR bright signal is seen in the cerebral hemispheres. A tiny focus of cortical-based encephalomalacia is seen in the superior right parietal lobe within a sulcus. A punctate cystic focus is seen in the posterior inferior right thalamus. Ventricles/Cisterns: Age-related prominence to the ventricular system and overlying cortical sulci is noted. No hydrocephalus. No abnormal extra-axial fluid collection or hemorrhage. Orbits: Symmetric and unremarkable. Sella Turcica: The pituitary gland, cavernous sinuses, suprasellar cistern and optic chiasm are unremarkable. IAC: Symmetric and unremarkable. Vasculature: Normal signal flow void is seen in the major arterial structures at the skull base. Sinuses: No acute appearing sinus disease. Bones: No focal pathologic appearing marrow signal changes. Other: None. IMPRESSION: 1. Negative noncontrast MRI of the brain. No acute abnormality. No acute infarct, mass, or hemorrhage. 2. Mild to moderate white matter signal abnormality is seen in the cerebral hemispheres. This is nonspecific. This can be seen secondary to small vessel ischemic change. 3. Punctate focus of cortical encephalomalacia in the high right parietal lobe. Tiny cystic focus in the right thalamus. This likely is sequela of old lacunar infarcts. RADIA
[2018-08-03] MEDS ORDERED: LORazepam 0.5 MG TABLET PO SCH (21:00)
[2018-08-03] MEDS ORDERED: CETIRIZINE 10 MG TABLET PO SCH (21:00)
[2018-08-03] MEDS ORDERED: DONEPEZIL 5 MG TABLET PO SCH (21:00)
[2018-08-04] MEDS: SODIUM CHLORIDE FLUSH 0.9% 10 ML SYRINGE IVP SCH ×2 (03:42→07:51)
[2018-08-04] MEDS: PANTOPRAZOLE 40 MG TABLET PO SCH (06:00)
[2018-08-04] MEDS: INSULIN ASPART 300 UNIT/3 ML PEN SUBQ SCH ×2 (07:34→12:36)
[2018-08-04] MEDS: CHOLECALCIFEROL 400 UNIT TABLET PO SCH (07:39)
[2018-08-04] MEDS: MAGNESIUM OXIDE 400 MG TABLET PO SCH (07:40)
[2018-08-04] MEDS: CALCIUM CITRATE 250 MG TABLET PO SCH (07:40)
[2018-08-04] MEDS: MULTIVITAMIN W/MINERALS TABLET PO SCH (07:40)
[2018-08-04] MEDS: DOCUSATE SODIUM 250 MG CAPSULE PO SCH ×2 (07:50→07:56)
[2018-08-04] MEDS: buPROPion XL 150 MG TABLET PO SCH (07:50)
[2018-08-04] MEDS: amLODIPine 5 MG TABLET PO SCH (07:51)
[2018-08-04] MEDS: ASPIRIN CHEW 81 MG TABLET PO SCH (07:51)
[2018-08-04] MEDS: POLYETHYLENE GLYCOL 3350 17 GM PACKET PO SCH (07:51)
[2018-08-04 09:20] LABS: CALCIUM 9.4 mg/dL (8.5-10.3); CREATININE 1.3 mg/dL (0.4-1.0)
--- NOTE | 2018-08-04 10:54 | Discharge Plan ---
"Discharge Plan for SNF / ANT - Discharge Plan And Transition Orders Problem Reviewed?: Yes Disposition: 01 Home, Self Care Condition: Stable Allergies and Adverse Reactions: Allergies Allergy/AdvReac Type Severity Reaction Status Date / Time No Known Allergies Allergy Unknown Verified 08/03/18 07:25 Health Concerns: Transient right body weakness, history of falls over the last few months, decreasing appetite and weight loss Plan of Treatment: While she was here, we identified her as having a neurological disorder associated with memory loss, gait ataxia, a left hand tremor, masked faces. This patient could have either Parkinson's disease that is untreated or residuals of her right brain stroke that she had from July 2017. MRI of the head shows an old right parietal stroke with shrinkage of her brain in that area. She was also dehydrated and her creatinine was 1.8 on admission and is now 1.3. She was evaluated for multiple myeloma and hyperparathyroidism. TSH is normal, PTH is normal, and serum protein electro pheresis is pending. Care Goals: 1. Continue physical therapy at your assisted living facility 2. Follow-up with seeing your neurologist whether it at the [facility] or the new one in [place] to definitively diagnose whether you have just residuals of stroke or Parkinson's disease 3. Have the assisted living facility nutrition staff prompt you to drink a certain amount of water and eat a certain amount of food every day and start a daily diet supplement was such things as Ensure 4. Have a consultation with allergy and immunology to see if you have an acquired disorder called angioneurotic edema or a simple allergy that causes her lips to swell intermittently (that is been ongoing for close to 3 years) Assessment: All of this was discussed with her sister. The patient has cognitive disabilities, and does not always follow the conversation. But these goals of care were discussed with the sister and social work will reiterate those goals of care with assisted living facility. - SNF / ANT Transition Orders Admit to (Facility): [facility] Under the care of (Name): Jasper Mcelroy MD Discharge Diagnosis: 1. Right-sided body weakness, resolved. MRI of head negative for acute changes. 2. Failure to thrive with weight loss, worsening cognitive decline 3. Undiagnosed neurological disorder that is either residual of old stroke, right parietal region from July 2017 versus untreated Parkinson's disease 4. Dehydration 5. Hypercalcemia resolved. PTH level normal. Serum protein electrophoresis pending 6. Angioneurotic edema of the lips, acquired versus allergic reaction 7. Chronic kidney disease stage III with acute worsening, now back at baseline 8. Osteoporosis 9. Obstructive sleep apnea 10. Hypertension 11. Type 2 diabetes mellitus, controlled, without complications 12. History of recurrent UTIs Weight on admission and: Weekly Other Notification Orders: Call PCP immediately if patient develops dyspnea, chest pain/tightness or edema. Call PCP if weight drops by 4 pounds/week House Bowel Program: Yes Additional Bowel Program Orders: If no BM after 2 days, nurse may give M.O.M. 30ml PO PRN and/or ducolax Supp 1 UT and/or JEANIE 250mg P.O., and/or senna 1-2 tabs PO. On day 3 nurse may give repeat above order until residents constipation is resolved. Annual Influenza Vaccine (between Oct 09 and May 08): Yes Two-step PPD per [facility] [id number] or approved exception documents: Yes Medication Orders: PLEASE REFER TO THE DISCHARGE MEDICATION LIST. - Medications New Prescriptions: Potassium Chloride [K-Dur] 40 meq PO DAILYWM #5 tablet - Diet Type: No added sugar Texture: Regular Liquids: Thin Supplements: glycerna 4 oz daily May have monthly special meal: Yes - Therapies | Activity Rehabilitation Potential: Maximize functional status Activity: Activity as Tolerated Assistance Devices: Cane Follow Up: Jasper Mcelroy MD Neurology in [place] vs. [facility]"
[2018-08-04] MEDS ORDERED: POTASSIUM CHLORIDE 20 MEQ TABLET PO SCH (11:00)
[2018-08-04 16:07] VITALS: BP 160/60
[2018-08-04 22:10] LABS: SMOOTH MUSCLE IGG AB <20 U
[2018-08-04 22:18] LABS: ALBUMIN 3.5 g/dL (3.8-4.8); ALPHA 1 GLOBULIN 0.4 g/dL (0.2-0.3); ALPHA 2 GLOBULIN 0.7 g/dL (0.5-0.9); BETA 1 GLOBULIN 0.3 g/dL (0.4-0.6); BETA 2 GLOBULIN 0.3 g/dL (0.2-0.5); GAMMA GLOBULIN 0.7 g/dL (0.8-1.7)
[2018-08-06 14:00] LABS: ACETYLCHOL RECEP MODULATING AB 7
--- NOTE | 2018-08-08 03:45 | DISCHARGE SUMMARY ---
Physician: Deanna Quinn MD DATE OF ADMISSION: 08/03/2018 DATE OF DISCHARGE: 08/04/2018 DISCHARGE DIAGNOSES 1. Right-sided body weakness. 2. Metabolic encephalopathy. 3. History of stroke. 4. Failure to thrive. 5. Unexpected weight loss. 6. Severe protein-calorie malnutrition. 7. Cognitive deficits. 8. Dehydration. 9. Hypercalcemia. 10. Angioneurotic edema. 11. Chronic kidney disease stage 3, with acute insufficiency. 12. Osteoporosis. 13. Obstructive sleep apnea. 14. Hypertension. 15. Type 2 diabetes mellitus, controlled without complications. PRINCIPAL PROCEDURES 1. Head CT negative for acute hemorrhage or infarct. 2. MRI of the brain with no acute abnormality. She has mild to moderate white matter signal abnormality. Punctate focus of cortical encephalomalacia in the high right parietal lobe and a tiny cystic focus in the right thalamus. This is likely a sequela of old lacunar infarcts. 3. Intact PTH is normal at 22. 4. PTH related hormone is low at 13, with normal 14-27. 5. Serum protein electrophoresis showed that one or more fractions were outside the reference interval. She has high alpha-1 globulins, with total protein being low. Smooth muscle, acetylcholine receptors negative. DISCHARGE MEDICATIONS 1. Tylenol 1000 mg every 6 hours as needed. 2. Norvasc 5 mg daily. 3. Aspirin 81 daily. 4. Atorvastatin 10 mg daily. 5. Wellbutrin XL 150 mg daily. 6. Calcium with vitamin D b.i.d. 7. Zyrtec 10 mg daily. 8. Questran 4 g daily. 9. Ciclopirox application to toes daily. 10. Docusate 250 mg daily as needed. 11. Donepezil (Aricept) 5 mg p.o. daily. 12. Aspercreme topically b.i.d. 13. Loperamide 2 capsules every 2 hours as needed for diarrhea. 14. Claritin 10 mg daily. 15. Lorazepam 0.125 mg in the evening. 16. Glucophage 500 mg p.o. b.i.d. 17. Multivitamin daily. 18. Triamterene and hydrochlorothiazide 37.5/25 mg daily. 19. Potassium 40 mEq daily for 5 days only and needs to have her potassium rechecked. HOSPITAL COURSE: She is a 73-year-old female who has been deteriorating over the last 2 years with a gentle but insidious memory loss. She has been evaluated by [facility]. Family is in the process of switching neurologists because of convenience to a neurologist in [place]. She is to have an appointment with the new neurologist in November 2018. She is being followed for her dementia, and has had a previous CT of the head and MRI, which were negative. In addition to the dementia, the patient has been having increasing falls, and starting to develop a hand tremor in her left hand and arm. Her primary care provider in [place] felt that she may be developing parkinsonism, and started her on a Parkinson drug that was a patch. The patch was $1500 a month. The patient could not afford this. [facility] was very unhappy that patient was probably not thoroughly worked up yet and the patch was not warranted yet. This [facility] the [facility] what her diagnosis is and what appropriate treatment she could start. In any case, one of her falls resulted in a fall down an embankment in the summer of 2017. She had a radius and ulnar fracture that resulted in surgery. She has had an excellent recovery result, according to her sister, and she has almost all of her function back in her arm and hand. Around the same time with that surgery, she had a small stroke or TIA resulting in a 24-hour overnight stay with the MRI and CAT scan done. She has not been able to live independently as she has deteriorated from all of this and she was living in [place], but once she fell down the embankment, sister moved her to be closer to her at [facility] on the [place] in the summer of 2017. She was also starting to have financial difficulties because she was compulsively and impulsively buying things on [employer], and filled her kitchen with kitchen gadgets and boxes that were not even opened yet. 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 It is always the lips and never affected her vocal cords, or her respiration. It is not clear what her allergy response is to, but she has been treated with multiple allergic drugs. She is not on FLETCHER inhibitors. Most of the history is obtained from the patient's sister because the patient is pleasant, cooperative, but has severe psychomotor slowing and is unable to tell me a lucid history. The patient has been having decreasing appetite, losing weight, and the sister worries that the antidepressant recently tried may not be the right antidepressant for the patient since one of its side effects is weight loss. She is in the process of transferring her care to Dr. Mcelroy, who the sister hopes will be taking her sister off Wellbutrin. Her sister is afraid that some of her memory loss, falls and flat affect may be from polypharmacy, and would prefer her sister to be on a minimal amount of drugs. With this history in place, the patient now presents with sudden onset of right- sided weakness. As such, she was brought to the emergency room. In the emergency room, Dr. Florez found that her right-sided weakness had resolved, but he was very concerned about the swollen lips that he was seeing. As far as he understood, this was the patient's first presentation. He did obtain the history of failure to thrive, decreasing p.o. intake, increasing falls. He asked her to be brought in for her angioneurotic edema and failure to thrive. CT of the head was unremarkable. CBC normal. CMP had a slight rise in BUN and creatinine. Creatinine was 1.8. Calcium was elevated at 11.5. Calcium is usually 9.5 and had risen to 10.6 in the last year. Tonight, she was 11.5. She had a high protein of 8.6. With her last visit, she was 7.5. Urinalysis was negative. The patient's right-sided body weakness had resolved. There was some element of psychomotor slowing and encephalopathy with very slow to respond to questions. It improved with hydration. Gradually, the swelling of her lips went down to normal. It should be noted that the patient has tattooed lips of a pink color. She also has tattooed eyelids and eye liner. Creatinine was 1.8 on admission and came down to 1.4 with hydration. Her baseline status was not able to be reached and, as such, she was changed from observation status to inpatient status. It was unclear if her dehydration was from decreased p.o. intake, or her medications or both. During her stay, I did feel like she had masked facies, bradykinesia, slow psychomotor response, a left hand and arm tremor that was resting, but she did not have past pointing or cogwheel rigidity. Hypercalcemia was evaluated and had a normal PTH. Serum protein electrophoresis was nonspecific in its finding, and was felt to be probably negative. Potassium was supplemented. She needs to go home on potassium for the next few days and have potassium rechecked in the outpatient setting. The patient is slow to move, but able to get up on her own with standby assist. She is felt stable enough to return to her assisted living facility. Hopefully, the sister will be able to take her to see her primary care provider and her new neurologist, to see if this woman does in fact have an undiagnosed neurologic disorder or just residuals of her old strokes. There is evidence of slow thought process in this doe patient. At the time of discharge, she was improved, but sister felt that she was not back to her usual baseline with regard to her personality and movement. PHYSICAL EXAMINATION VITAL SIGNS: Temperature was 36.5, pulse 68, blood pressure 160/60, respirations 20 and unlabored, 100% on room air. She is 5 feet 1 inch tall, 54.5 kg. HEENT: Masked facies. Tattooed eye liner and lips. The large, bulbous, swollen lips have almost gone to completely normal. No facial asymmetry. Speech is low, hoarse. NECK: Supple. No JVD. LUNGS: Clear to auscultation and percussion. PMI is normally placed with a regular rate and rhythm. ABDOMEN: Soft, nontender. NEUROLOGIC: The main finding was the neurological exam of the bradykinesia, slow psychomotor responses, intermittent left hand tremor and a shuffling gait. During her stay, her diabetes mellitus was controlled. Glycosylated hemoglobin was 5.3. She is on metformin and that was resumed for discharge. She is asked to see her primary care provider, Jasper Mcelroy, in followup. Greater than 30 minutes was spent coordinating discharge. cc: Jasper Mcelroy MD TD: 08/07/2018 20:26 MTDD
== END 2018-08-04 16:20 | disposition home or self-care (01) | DRG 70 ==
LOC: ED 12:57 → MS2 16:28 → OBSVTOIN 08-03 18:38
PROVIDERS: ADMIT Specialist; ATTEND Specialist
DX: G93.41 Metabolic encephalopathy (principal); E43 Unspecified severe protein-calorie malnutrition; R40.0 Somnolence; R63.4 Abnormal weight loss; E86.0 Dehydration; R53.1 Weakness; R26.0 Ataxic gait; F32.9 Major depressive disorder, single episode, unspecified; R25.1 Tremor, unspecified; R25.8 Other abnormal involuntary movements; F03.90 Unspecified dementia, unspecified severity, without behavioral disturbance, psychotic disturbance, mood disturbance, and anxiety; R47.81 Slurred speech; R26.89 Other abnormalities of gait and mobility; N17.9 Acute kidney failure, unspecified; R62.7 Adult failure to thrive; Z68.22 Body mass index [BMI] 22.0-22.9, adult; E83.52 Hypercalcemia; T78.3XXA Angioneurotic edema, initial encounter; E11.22 Type 2 diabetes mellitus with diabetic chronic kidney disease; I12.9 Hypertensive chronic kidney disease with stage 1 through stage 4 chronic kidney disease, or unspecified chronic kidney disease; N18.3 Chronic kidney disease, stage 3 (moderate); L81.8 Other specified disorders of pigmentation; E78.5 Hyperlipidemia, unspecified; G47.33 Obstructive sleep apnea (adult) (pediatric); M81.0 Age-related osteoporosis without current pathological fracture; Z79.84 Long term (current) use of oral hypoglycemic drugs; Z87.440 Personal history of urinary (tract) infections; Z86.73 Personal history of transient ischemic attack (TIA), and cerebral infarction without residual deficits; Z87.891 Personal history of nicotine dependence; Z87.310 Personal history of (healed) osteoporosis fracture; Z82.3 Family history of stroke; Z79.899 Other long term (current) drug therapy; Z91.81 History of falling; Z79.82 Long term (current) use of aspirin
CPT/HCPCS: 36415; 51701; 70450; 70551; 80048; 80053; 81003; 82550; 83036; 83516; 83519; 83690; 83735; 83970; 84155; 84165; 84443; 85025; 96361; 96374; 99281; 99283; A9270; G0378; 81001; 87086

== ENCOUNTER 2018-08-09 11:15 | Outpatient (CLI) | payer MEDICARE, OTHER ==
[2018-08-09 18:44] LABS: BASOPHILS # (AUTO) 0.1 10^3/uL (0.0-0.1); BASOPHILS % (AUTO) 0.6 %; EOSINOPHILS # (AUTO) 0.3 10^3/uL (0.0-0.7); EOSINOPHILS % (AUTO) 3.3 %; HGB - HEMOGLOBIN 11.6 g/dL (12.0-16.0); LYMPHOCYTES # (AUTO) 2.4 10^3/uL (1.5-3.5); LYMPHOCYTES % (AUTO) 28.9 %; MEAN CORPUSCULAR HEMOGLOBIN 27.2 pg (27.0-31.0); MEAN CORPUSCULAR VOLUME 87.8 fL (81.0-99.0); MEAN PLATELET VOLUME 10.1 fL (7.9-10.8); MONOCYTES # (AUTO) 0.4 10^3/uL (0.0-1.0); MONOCYTES % (AUTO) 4.5 %; NEUTROPHILS # (AUTO) 5.1 10^3/uL (1.5-6.6); NEUTROPHILS % (AUTO) 62.2 %; PLT - PLATELET COUNT 249 10^3/uL (130-450); RED BLOOD COUNT 4.26 10^6/uL (4.20-5.40); RED CELL DISTRIBUTION WIDTH 13.9 % (12.0-15.0); WHITE BLOOD COUNT 8.2 x10^3/uL (4.8-10.8)
[2018-08-09 19:10] LABS: ALBUMIN 4.5 g/dL (3.2-5.5); ALBUMIN/GLOBULIN RATIO 1.3 (1.0-2.2); BILIRUBIN,TOTAL 0.6 mg/dL (0.2-1.0); CALCIUM 10.7 mg/dL (8.5-10.3); CREATININE 1.5 mg/dL (0.4-1.0); TOTAL PROTEIN 7.9 g/dL (6.7-8.2)
== END 2018-08-09 11:45 | disposition home or self-care (01) ==
LOC: LAB.N 11:15
PROVIDERS: ATTEND Family Medicine
DX: E87.6 Hypokalemia (principal)
CPT/HCPCS: 36415; 80053; 85025

== ENCOUNTER 2018-08-23 10:37 | Outpatient (CLI) | payer MEDICARE, OTHER | END 2018-08-23 10:38 | disposition critical access hospital (66) | LOC: EMS 10:37 | PROVIDERS: ATTEND Surgery | DX: R53.1 Weakness (principal); R41.82 Altered mental status, unspecified | CPT/HCPCS: A0425; A0427 ==

== ENCOUNTER 2018-08-23 10:55 | Emergency (ER) | payer MEDICARE, OTHER ==
[2018-08-23 12:09] LABS: BASOPHILS % (AUTO) 0.1 %; EOSINOPHILS # (AUTO) 0.2 10^3/uL (0.0-0.7); EOSINOPHILS % (AUTO) 2.4 %; HGB - HEMOGLOBIN 10.9 g/dL (12.0-16.0); LYMPHOCYTES # (AUTO) 1.9 10^3/uL (1.5-3.5); LYMPHOCYTES % (AUTO) 27.6 %; MEAN CORPUSCULAR HEMOGLOBIN 27.4 pg (27.0-31.0); MEAN CORPUSCULAR HGB CONC 32.2 g/dL (32.0-36.0); MEAN CORPUSCULAR VOLUME 84.9 fL (81.0-99.0); MEAN PLATELET VOLUME 9.9 fL (7.9-10.8); MONOCYTES # (AUTO) 0.6 10^3/uL (0.0-1.0); NEUTROPHILS # (AUTO) 4.3 10^3/uL (1.5-6.6); NEUTROPHILS % (AUTO) 60.8 %; PLT - PLATELET COUNT 179 10^3/uL (130-450); RED BLOOD COUNT 3.98 10^6/uL (4.20-5.40); RED CELL DISTRIBUTION WIDTH 13.6 % (12.0-15.0)
[2018-08-23 12:25] LABS: ALBUMIN 4.2 g/dL (3.2-5.5); ALBUMIN/GLOBULIN RATIO 1.1 (1.0-2.2); BILIRUBIN,TOTAL 0.5 mg/dL (0.2-1.0); CREATININE 1.8 mg/dL (0.4-1.0); TOTAL PROTEIN 7.9 g/dL (6.7-8.2)
--- NOTE | 2018-08-23 12:29 | ED Physician Documentation ---
History of Present Illness - Stated complaint Stated Complaint: WEAKNESS - Chief complaint Chief Complaint: General - History obtained from History obtained from: Patient, Family - History of Present Illness Timing: Today Pain level max: 0 Pain level now: 0 Improved by: nothing Worsened by: nothing - Additonal information Additional information: Lives at assisted living. Sister states unable to walk today. Was doing PT until 3 weeks ago when it was stopped. States she has been weaker since then. Patient has alzheimers and DM. No pain. No fevers. No cough. Decreased appetite and PO intake. Nothing makes it better or worse. Review of Systems Constitutional: denies: Fever, Chills Ears: denies: Ear pain Nose: denies: Rhinorrhea / runny nose, Congestion Respiratory: denies: Cough GI: denies: Nausea, Vomiting, Diarrhea : denies: Dysuria, Frequency, Hesitancy Skin: denies: Rash Musculoskeletal: denies: Neck pain, Back pain Neurologic: denies: Headache PD PAST MEDICAL HISTORY - Past Medical History Past Medical History: Yes Cardiovascular: Hypertension, High cholesterol Respiratory: COPD Neuro: TIA Endocrine/Autoimmune: Type 2 diabetes GI: Chronic diarrhea TEST DIRECTOR: None : Incontinence HEENT: None Psych: None Musculoskeletal: Osteopenia Derm: None - Past Surgical History Past Surgical History: Yes General: Cholecystectomy, Appendectomy Ortho: Rotator cuff repair, Other HEENT: Tonsil/Adenoidectomy - Present Medications Home Medications: Ambulatory Orders Medication Instructions Recorded Confirmed Acetaminophen [Tylenol Extra 1,000 mg PO Q6H PRN 08/02/18 08/02/18 Strength] Aspirin Chewable [St Rick 81 mg PO DAILY 08/02/18 08/02/18 Aspirin] Atorvastatin [Lipitor] 10 mg PO [id number]/02/18 08/02/18 Calcium Citrate/Vitamin D3 1 each PO BIDWM 08/02/18 08/02/18 [Calcium Cit 200-Vit D3 250 Tab] Cetirizine [ZyrTEC] 10 mg PO QPM 08/02/18 08/02/18 Cholestyramine [Questran] 4 gm PO DAILY PRN 08/02/18 08/02/18 Ciclopirox 1 applic TOP QPM 08/02/18 08/02/18 Ciclopirox Olamine [Ciclopirox] 1 applic TOP DAILY 08/02/18 08/02/18 Docusate Sodium 250Mg Capsule 250 mg PO DAILY 08/02/18 08/02/18 [Colace 250Mg Capsule] Donepezil [Aricept] 5 mg PO QPM 08/02/18 08/02/18 LORazepam [Lorazepam] 0.125 mg PO QPM 08/02/18 08/02/18 Lidocaine HCl [Aspercreme] 1 applic TOP BID 08/02/18 08/02/18 Loperamide HCl [Loperamide] 2 mg PO Q2H PRN MDD 16mg 08/02/18 08/02/18 Loratadine [Claritin] 10 mg PO DAILY PRN 08/02/18 08/02/18 Multivitamin,Therapeutic [Thera] 1 each PO DAILY 08/02/18 08/02/18 Triamterene/Hydrochlorothiazid 1 each PO DAILY 08/02/18 08/02/18 [Triamterene-Hctz 37.5-25 mg Tb] Turmeric/Turmeric Root Extract 1 each PO DAILY 08/02/18 08/02/18 [Turmeric 500 mg Capsule] Wheat Dextrin [Benefiber] 1 each PO DAILY 08/02/18 08/02/18 amLODIPine [Norvasc] 5 mg PO DAILY 08/02/18 08/02/18 buPROPion [Wellbutrin Xl] 150 mg PO DAILY 08/02/18 08/02/18 metFORMIN [Glucophage] 500 mg PO BIDWM 08/02/18 08/02/18 Potassium Chloride [K-Dur] 40 meq PO DAILYWM #5 tablet 08/04/18 Cephalexin [Keflex] 500 mg PO Q6H #20 capsule 08/23/18 - Allergies Allergies/Adverse Reactions: Allergies Allergy/AdvReac Type Severity Reaction Status Date / Time No Known Allergies Allergy Unknown Verified 08/23/18 11:07 - Social History Does the pt smoke?: No Smoking Status: Never smoker Does the pt drink ETOH?: Yes Does the pt have substance abuse?: No - Immunizations Immunizations are current?: Yes PD ED PE NORMAL - Vitals Vital signs reviewed: Yes - General General: No acute distress, Well developed/nourished, Other (alert and oriented x 2) - HEENT HEENT: PERRL, Moist mucous membranes - Neck Neck: Supple, no meningeal sign - Cardiac Cardiac: RRR, Strong equal pulses - Respiratory Respiratory: No respiratory distress, Clear bilaterally - Abdomen Abdomen: Soft, Non tender, Non distended - Rectal Rectal: Other (normal rectal, Chaperoned by Dahlia COOK [employer] Student. negative hemoccult. QC passed.) - Back Back: No CVA TTP, No spinal TTP - Derm Derm: Warm and dry - Extremities Extremities: No edema, No calf tenderness / cord - Neuro Neuro: No sensory deficit, Other (alert, oriented x 2. decreased strength B LE) - Psych Psych: Normal mood, Normal affect Results - Vitals Vitals: Vital Signs - 24 hr 08/23/18 08/23/18 08/23/18 10:56 12:00 14:23 Temperature 36.7 C Heart Rate 79 74 73 Respiratory 14 17 16 Rate Blood Pressure 136/79 H 125/77 122/96 H O2 Saturation 95 96 98 Oxygen O2 Source Room air - EKG (time done) 1109 Rate: Rate (enter#) (80) Rhythm: NSR, Other (PVC) [place]: Normal QRS: LVH Ischemia: Non specific changes - Labs Labs: Laboratory Tests 08/23/18 08/23/18 08/23/18 12:02 12:02 12:02 WBC 7.0 RBC 3.98 L Hgb 10.9 L Hct 33.8 L MCV 84.9 MCH 27.4 MCHC 32.2 RDW 13.6 Plt Count 179 MPV 9.9 Neut # (Auto) 4.3 Lymph # (Auto) 1.9 Edwards # (Auto) 0.6 Eos # (Auto) 0.2 Baso # (Auto) 0.0 Absolute Nucleated RBC 0.00 Nucleated RBC % 0.0 Sodium 142 Potassium 3.8 Chloride 102 Carbon Dioxide 26 Anion Gap 14.0 H BUN 62 H Creatinine 1.8 H Estimated GFR (MDRD) 28 L Glucose 128 H Calcium 11.0 H Total Bilirubin 0.5 AST 33 ALT 33 Alkaline Phosphatase 79 Troponin I < 0.04 Total Protein 7.9 Albumin 4.2 Globulin 3.7 Albumin/Globulin Ratio 1.1 Lipase 62 H Urine Color Urine Clarity Urine pH Ur Specific [place] Urine Protein Urine Glucose (UA) Urine Ketones Urine Occult Blood Urine Nitrite Urine Bilirubin Urine Urobilinogen Ur Leukocyte Esterase Urine RBC Urine WBC Ur Squamous Epith Cells Urine Bacteria Ur Microscopic Review Urine Culture Comments 08/23/18 13:24 WBC RBC Hgb Hct MCV MCH MCHC RDW Plt Count MPV Neut # (Auto) Lymph # (Auto) Edwards # (Auto) Eos # (Auto) Baso # (Auto) Absolute Nucleated RBC Nucleated RBC % Sodium Potassium Chloride Carbon Dioxide Anion Gap BUN Creatinine Estimated GFR (MDRD) Glucose Calcium Total Bilirubin AST ALT Alkaline Phosphatase Troponin I Total Protein Albumin Globulin Albumin/Globulin Ratio Lipase Urine Color YELLOW Urine Clarity HAZY Urine pH 5.0 Ur Specific [place] 1.020 Urine Protein TRACE Urine Glucose (UA) NEGATIVE Urine Ketones NEGATIVE Urine Occult Blood TRACE-INTA Urine Nitrite POSITIVE H Urine Bilirubin NEGATIVE Urine Urobilinogen 0.2 (NORMAL) Ur Leukocyte Esterase TRACE H Urine RBC 0-5 Urine WBC 11-25 H Ur Squamous Epith Cells MOD Squamous H Urine Bacteria Many H Ur Microscopic Review INDICATED Urine Culture Comments NOT INDICATED PD MEDICAL DECISION MAKING - ED course Complexity details: reviewed results, re-evaluated patient, considered di fferential, d/w patient, d/w family ED course: 73-year-old female that appears to be dehydration and UTI. Feels much better after IV fluids and IV antibiotics. Her hemoglobin has been dropping over the past few months. Hemoccult is negative. We will have her follow-up with her doctor for further evaluation of this. Will encourage good p.o. hydration at home. Ambulating well in the emergency department. Patient and family counseled regarding signs and symptoms for which I believe and urgent re- evaluation would be necessary. Patient with good understanding of and agreement to plan and is comfortable going home at this time This document was made in part using voice recognition software. While efforts are made to proofread this document, sound alike and grammatical errors may occur. Departure - Departure Disposition: 01 Home, Self Care Clinical Impression: Dehydration, Weakness UTI (urinary tract infection) Qualifiers: Urinary tract infection type: acute cystitis Hematuria presence: without hematuria Qualified Code(s): N30.00 - Acute cystitis without hematuria Condition: Good Instructions: ED Dehydration, ED UTI Cystitis Female Follow-Up: LARY WILHELM MD [Primary Care Provider] - Within 1 week Prescriptions: Cephalexin [Keflex] 500 mg PO Q6H #20 capsule Comments: Take all antibiotics until gone. Return if she worsens. She needs to increase her fluid intake at home. She should have her hemoglobin rechecked with her doctor. It has decreased over the past month. Unclear cause. Discharge Date/Time: 08/23/18 14:49
[2018-08-23] MEDS ORDERED: SODIUM CHLORIDE 0.9% 1,000 ML IV ONE ×2 (12:31)
[2018-08-23 13:38] LABS: BILIRUBIN,URINE NEGATIVE (NEGATIVE); GLUCOSE, URINE (UA) NEGATIVE (NEGATIVE); KETONES,URINE (UA) NEGATIVE (NEGATIVE); LEUKOCYTE ESTERASE, URINE TRACE (NEGATIVE); NITRITE,URINE POSITIVE (NEGATIVE); OCCULT BLOOD,URINE TRACE-INTA (NEGATIVE); PROTEIN,URINE TRACE mg/dL (NEGATIVE); UROBILINOGEN,URINE 0.2 (NORMAL) E.U./dL (NORMAL)
[2018-08-23 13:40] LABS: CLARITY,URINE HAZY (CLEAR)
[2018-08-23 13:50] LABS: BACTERIA,URINE Many /HPF (None Seen); RBC,URINE 0-5 /HPF (0-5); SQUAMOUS EPITHELIAL CELL,UR MOD Squamous (<= Few)
[2018-08-23] MEDS ORDERED: cefTRIAXone 1 GM VIAL IVP STA (14:02)
[2018-08-23] MEDS ORDERED: MIN OIL/DIMETHICON/COCONUT OIL 92 GM TUBE TOP STA (14:15)
[2018-08-23 14:24] VITALS: BP 122/96
== END 2018-08-23 14:49 | disposition home or self-care (01) ==
LOC: EDUNIT# → ED 10:55
DX: E86.0 Dehydration (principal); N30.00 Acute cystitis without hematuria; R53.1 Weakness; I49.3 Ventricular premature depolarization; I10 Essential (primary) hypertension; E11.9 Type 2 diabetes mellitus without complications; Z79.84 Long term (current) use of oral hypoglycemic drugs; G30.9 Alzheimer's disease, unspecified; F02.80 Dementia in other diseases classified elsewhere, unspecified severity, without behavioral disturbance, psychotic disturbance, mood disturbance, and anxiety; Z86.73 Personal history of transient ischemic attack (TIA), and cerebral infarction without residual deficits; Z79.82 Long term (current) use of aspirin
CPT/HCPCS: 36415; 80053; 81001; 83690; 84484; 85025; 93005; 96361; 96374; 99283; A6250; 81003; 87086

== ENCOUNTER 2018-09-12 11:39 | Outpatient (CLI) | payer MEDICARE, OTHER ==
--- NOTE | 2018-09-13 09:20 | Ultrasound Report ---
Reason: CEREBRAL INFARCTION, UNSPECIFIED MECHANISM Procedure Date: 09/12/2018 Accession Number: [id number] / [id number] Procedure: US - Carotid Doppler Complete CPT Code: FULL RESULT: EXAM: BILATERAL CAROTID AND VERTEBRAL ARTERY DUPLEX DOPPLER ULTRASOUND: EXAM DATE: 09/12/2018 12:48 PM CLINICAL HISTORY: Cerebral infarction, unspecified mechanism. COMPARISON: None. TECHNIQUE: Grayscale imaging, color Doppler, and duplex spectral Doppler were used to evaluate the carotid and vertebral arteries bilaterally. Static images were obtained. FINDINGS: Prominent atherosclerotic plaque in the bilateral common carotid and internal carotid arteries with no resulting flow-limiting stenosis. Normal antegrade flow is present in bilateral vertebral arteries. VELOCITIES (cm/sec): Right CCA mid: PSV 61 cm/sec CCA dist: PSV 51 cm/sec ICA prox: PSV 53 cm/sec, EDV 16 cm/sec ICA mid: PSV 57 cm/sec, EDV 15 cm/sec ICA dist: PSV 80 cm/sec, EDV 18 cm/sec ECA: PSV 48 cm/sec Vert: PSV 46 cm/sec ICA/CCA: 1.31 Left CCA mid: PSV 59 cm/sec CCA dist: PSV 54 cm/sec ICA prox: PSV 59 cm/sec, EDV 14 cm/sec ICA mid: PSV 63 cm/sec, EDV 19 cm/sec ICA dist: PSV 64 cm/sec, EDV 17 cm/sec ECA: PSV 78 cm/sec Vert: PSV 50 cm/sec ICA/CCA: 1.0 ICA diameter stenosis: Right: <50% by velocity and <70% by NASCET criteria. Left: <50% by velocity and <70% by NASCET criteria. IMPRESSION: 1. Prominent atherosclerotic plaque in the bilateral common carotid and internal carotid arteries with no resulting flow-limiting stenosis. 2.Normal antegrade flow is present in bilateral vertebral arteries. General Recommendations: Stenosis =50% ICA - Follow-up ultrasound 6-12 months Stenosis <50% ICA - High Risk Patient with plaque - Follow-up ultrasound 1-2 years Normal Study but High Risk Patient - Follow-up ultrasound 3-5 years Management recommendations and diagnostic criteria are based on current IAC endorsed standards in Carotid Artery Stenosis: Grayscale and Doppler Ultrasound Diagnosis. Validated velocity measurements with angiographic measurements and velocity criteria are extrapolated from diameter data as defined by the Society of Radiologists in Ultrasound Consensus Conference Radiology 2003; 229;340-346. RADIA
== END 2018-09-12 11:40 | disposition home or self-care (01) ==
LOC: DI 11:39
PROVIDERS: ATTEND Psychiatry & Neurology Neurology
DX: I63.9 Cerebral infarction, unspecified (principal); R13.10 Dysphagia, unspecified
CPT/HCPCS: 74230; 93880

== ENCOUNTER 2018-09-12 11:41 | Outpatient (CLI) | payer MEDICARE, OTHER ==
--- NOTE | 2018-09-12 16:10 | XRAY Report ---
Reason: DYSPAHGIA Procedure Date: 09/12/2018 Accession Number: [id number] / [id number] Procedure: FL - Modified Barium Swallow W/SP CPT Code: FULL RESULT: EXAM: MODIFIED BARIUM SWALLOW EXAM DATE: 09/12/2018 02:15 PM. CLINICAL HISTORY: Dysphagia. COMPARISON: None. TECHNIQUE: Under the direction of speech pathology, patient swallowed various consistencies of barium under lateral fluoroscopic observation of the neck. Fluoroscopy Time: 34 seconds. Number of Images: 57. FINDINGS: Swallowing Mechanism: Prolonged oral phase and delayed swallowing reflex. Airway Protection: Normal epiglottic motion. No episodes of tracheal penetration or aspiration with all consistencies of barium. Pharynx: Normal. No significant vallecular or piriform sinus contrast pooling. Other: None. IMPRESSION: Prolonged oral phase with delayed initiation of swallowing. No aspiration identified. RADIA
== END 2018-09-12 11:42 | disposition home or self-care (01) ==
LOC: DI 11:41
PROVIDERS: ATTEND Family Medicine
DX: R13.10 Dysphagia, unspecified (principal)
CPT/HCPCS: 74230

== ENCOUNTER 2018-09-20 14:11 | Outpatient (CLI) | payer MEDICARE, OTHER ==
[2018-09-20 19:05] LABS: HGB - HEMOGLOBIN 10.8 g/dL (12.0-16.0); MEAN CORPUSCULAR HEMOGLOBIN 26.9 pg (27.0-31.0); MEAN CORPUSCULAR HGB CONC 31.5 g/dL (32.0-36.0); MEAN CORPUSCULAR VOLUME 85.3 fL (81.0-99.0); MEAN PLATELET VOLUME 10.4 fL (7.9-10.8); RED BLOOD COUNT 4.02 10^6/uL (4.20-5.40); RED CELL DISTRIBUTION WIDTH 13.6 % (12.0-15.0); WHITE BLOOD COUNT 6.1 x10^3/uL (4.8-10.8)
[2018-09-20 19:55] LABS: URIC ACID 7.6 mg/dL (2.6-7.2)
[2018-09-20 19:56] LABS: CRP - C-REACTIVE PROTEIN < 1.0 mg/dL (0-1.0)
[2018-09-20 20:03] LABS: RHEUMATOID FACTOR NEGATIVE (Negative)
== END 2018-09-20 23:59 | disposition home or self-care (01) ==
LOC: LAB.N 14:11
PROVIDERS: ATTEND Family Medicine
DX: M79.642 Pain in left hand (principal)
CPT/HCPCS: 36415; 84550; 85027; 85651; 86140; 86200; 86430

== ENCOUNTER 2018-12-27 08:00 | Outpatient (CLI) | payer MEDICARE, OTHER | END 2018-12-27 23:59 | disposition home or self-care (01) | LOC: LAB.R 08:00 | PROVIDERS: ATTEND Family Medicine | DX: K52.9 Noninfective gastroenteritis and colitis, unspecified (principal) | CPT/HCPCS: 81599; 82274; 83630; 87045; 87046; 87177; 87209; 87329; 87493 ==

== ENCOUNTER 2019-01-24 18:00 | Outpatient (CLI) | payer MEDICARE, OTHER | END 2019-01-24 23:59 | disposition home or self-care (01) | LOC: LAB.R 18:00 | PROVIDERS: ATTEND Family Medicine | DX: A04.72 Enterocolitis due to Clostridium difficile, not specified as recurrent (principal) | CPT/HCPCS: 87493 ==

== ENCOUNTER 2019-02-06 08:00 | Outpatient (CLI) | payer MEDICARE, OTHER | END 2019-02-06 23:59 | disposition home or self-care (01) | LOC: LAB.R 08:00 | PROVIDERS: ATTEND Family Medicine | DX: A04.72 Enterocolitis due to Clostridium difficile, not specified as recurrent (principal) | CPT/HCPCS: 87493 ==

== ENCOUNTER 2019-04-19 15:35 | Outpatient (CLI) | payer MEDICARE, OTHER ==
[2019-04-19 18:52] LABS: BASOPHILS % (AUTO) 0.5 %; EOSINOPHILS # (AUTO) 0.2 10^3/uL (0.0-0.7); EOSINOPHILS % (AUTO) 3.6 %; HGB - HEMOGLOBIN 9.3 g/dL (12.0-16.0); LYMPHOCYTES # (AUTO) 1.9 10^3/uL (1.5-3.5); LYMPHOCYTES % (AUTO) 34.3 %; MEAN CORPUSCULAR HEMOGLOBIN 23.3 pg (27.0-31.0); MEAN CORPUSCULAR HGB CONC 31.1 g/dL (32.0-36.0); MEAN CORPUSCULAR VOLUME 74.8 fL (81.0-99.0); MEAN PLATELET VOLUME 9.7 fL (7.9-10.8); MONOCYTES # (AUTO) 0.4 10^3/uL (0.0-1.0); MONOCYTES % (AUTO) 6.4 %; NEUTROPHILS # (AUTO) 3.1 10^3/uL (1.5-6.6); NEUTROPHILS % (AUTO) 54.8 %; PLT - PLATELET COUNT 209 10^3/uL (130-450); RED CELL DISTRIBUTION WIDTH 15.1 % (12.0-15.0); WHITE BLOOD COUNT 5.6 x10^3/uL (4.8-10.8)
[2019-04-19 19:04] LABS: HB2 TOTAL 9.5 g/dL; HEMOGLOBIN A1C 0.56 g/dL; HEMOGLOBIN A1C % 7.5 % (4.6-6.2)
[2019-04-19 19:05] LABS: CALCIUM 9.6 mg/dL (8.5-10.3); CREATININE 1.4 mg/dL (0.4-1.0); MAGNESIUM 1.9 mg/dL (1.7-2.8); PHOSPHORUS 3.6 mg/dL (2.5-4.6); URIC ACID 7.6 mg/dL (2.6-7.2)
== END 2019-04-19 23:59 | disposition home or self-care (01) ==
LOC: LAB.N 15:35
PROVIDERS: ATTEND Internal Medicine Nephrology
DX: E08.21 Diabetes mellitus due to underlying condition with diabetic nephropathy (principal); N18.3 Chronic kidney disease, stage 3 (moderate)
CPT/HCPCS: 36415; 80048; 81001; 82043; 82306; 82570; 83036; 83735; 83970; 84100; 84550; 85025

== ENCOUNTER → 2019-04-20 | Outpatient (CLI) | payer MEDICARE, OTHER ==
[2019-04-20 18:53] LABS: BILIRUBIN,URINE NEGATIVE (NEGATIVE); GLUCOSE, URINE (UA) NEGATIVE (NEGATIVE); KETONES,URINE (UA) NEGATIVE (NEGATIVE); LEUKOCYTE ESTERASE, URINE NEGATIVE (NEGATIVE); NITRITE,URINE NEGATIVE (NEGATIVE); OCCULT BLOOD,URINE NEGATIVE (NEGATIVE); PH,URINE 5.5 PH (5.0-7.5); PROTEIN,URINE 100 mg/dL (NEGATIVE); UROBILINOGEN,URINE 0.2 (NORMAL) E.U./dL (NORMAL)
[2019-04-20 19:00] LABS: CREATININE,URINE 91.3 mg/dL; MICROALBUM/CREATININE RATIO,UR 797.4 ug/mg (<30.0); MICROALBUMIN,URINE 72.8 mg/dL (0-300.0)
[2019-04-20 19:02] LABS: CLARITY,URINE CLEAR (CLEAR)
[2019-04-20 19:24] LABS: AMORPHOUS SEDIMENT,UR Few /LPF; BACTERIA,URINE Rare /HPF (None Seen); RBC,URINE 0-5 /HPF (0-5); SQUAMOUS EPITHELIAL CELL,UR FEW Squamous (<= Few)
== END ==
LOC: LAB.R 10:15
PROVIDERS: ATTEND Internal Medicine Nephrology
DX: N18.3 Chronic kidney disease, stage 3 (moderate) (principal)
CPT/HCPCS: 81001; 82043; 82570

== ENCOUNTER 2020-04-30 10:21 | Outpatient (CLI) | payer MEDICARE, OTHER ==
--- NOTE | 2020-05-01 13:41 | Mammography Report ---
BILATERAL DIGITAL SCREENING MAMMOGRAM 3D/2D: 04/30/2020 CLINICAL: Family history of breast cancer. Routine screening. Comparison is made to exams dated: 06/09/2018 mammogram - [facility] and 02/16/2017 ma mmogram - [facility]. There are scattered fibroglandular elements in both breasts. No significant masses, calcifications, or other findings are seen in either breast. There has been no significant interval change. IMPRESSION: NEGATIVE There is no mammographic evidence of malignancy. A 1 year screening mammogram is recommended. This exam was interpreted at Station ID: [id number]. NOTE: For mammograms, a report in lay terms will be sent to the patient. Approximately 15% of breast malignancies will not be visualized mammographically. In the management of a palpable breast mass, a negative mammogram must not discourage biopsy of a clinically suspicious lesion. Electronically Signed By: Rashad Johnson M.D. ddp/penrad:04/30/2020 11:15:26 ACR BI-RADS Category 1: Negative [id number] PARENCHYMAL PATTERN: (A) - The breast(s) demonstrate(s) scattered fibroglandular densities. BI-RADS CATEGORY: (1) - 1 RECOMMENDATION: (ANNUAL) - Recommend routine annual screening mammography. [id number] 1 year screening LATERALITY: (B)
== END 2020-04-30 10:22 | disposition home or self-care (01) ==
LOC: DI.N 10:21
DX: Z12.31 Encounter for screening mammogram for malignant neoplasm of breast (principal); Z80.3 Family history of malignant neoplasm of breast

== ENCOUNTER 2021-04-12 08:00 | Outpatient (CLI) | payer MEDICARE, OTHER ==
--- NOTE | 2021-04-12 15:49 | XRAY Report ---
PROCEDURE: Wrist 4 View LT INDICATIONS: WRIST PAIN, LEFT TECHNIQUE: 4 views of the wrist were acquired. COMPARISON: None FINDINGS: Bones: Probable subtle impacted nondisplaced fracture of the distal radius. No suspicious bony lesion s. Scaphoid view: Scaphoid intact Soft tissues: No suspicious soft tissue calcifications. IMPRESSION: Probable subtle impacted nondisplaced fracture of the distal radius. Reviewed by: Demarco Cabrera MD on 04/12/2021 2:47 PM AKST Approved by: Demarco Cabrera MD on 04/12/2021 2:47 PM AKST Station ID: [id number]
== END 2021-04-12 23:59 | disposition home or self-care (01) ==
LOC: DI.N 08:00
PROVIDERS: ATTEND Family Medicine
DX: M25.532 Pain in left wrist (principal); R93.6 Abnormal findings on diagnostic imaging of limbs

== ENCOUNTER 2021-05-02 11:45 | Outpatient (CLI) | payer MEDICARE, OTHER ==
--- NOTE | 2021-05-02 12:08 | XRAY Report ---
PROCEDURE: Chest 2 View X-Ray INDICATIONS: WHEEZING TECHNIQUE: 2 view(s) of the chest. COMPARISON: 04/03/2018. FINDINGS: Surgical changes and devices: None. Lungs and pleura: No pleural effusions or pneumothorax. Increased interstitial lung markings are not ed bilaterally with ill-defined patchy opacities suggestive of bilateral patchy infiltrates. Mild pul monary vascular congestion is also noted. Mediastinum: Mediastinal contours are normal. Heart size is enlarged. Bones and chest wall: No suspicious bony abnormalities. Soft tissues appear unremarkable. IMPRESSION: Thyromegaly MR congestion with suggestion of bilateral ill-defined patchy infiltrate/ate lectasis. No pleural effusion or pneumothorax. Reviewed by: Taz Crane MD on 05/02/2021 12:06 PM PDT Approved by: Taz Crane MD on 05/02/2021 12:06 PM PDT Station ID: [id number]
== END 2021-05-02 11:46 | disposition home or self-care (01) ==
LOC: DI.N 11:45
PROVIDERS: ATTEND Nurse Practitioner Gerontology
DX: R06.2 Wheezing (principal); E01.0 Iodine-deficiency related diffuse (endemic) goiter; R91.8 Other nonspecific abnormal finding of lung field; R05.9 Cough, unspecified
CPT/HCPCS: 36415; 80053; 83880; 85025

== ENCOUNTER 2021-05-02 11:54 | Outpatient (CLI) | payer MEDICARE, OTHER ==
[2021-05-02 17:52] LABS: BASOPHILS % (AUTO) 0.4 %; EOSINOPHILS # (AUTO) 0.1 10^3/uL (0.0-0.7); EOSINOPHILS % (AUTO) 0.7 %; HCT - HEMATOCRIT 36.6 % (37.0-47.0); HGB - HEMOGLOBIN 11.6 g/dL (12.0-16.0); LYMPHOCYTES # (AUTO) 1.7 10^3/uL (1.5-3.5); LYMPHOCYTES % (AUTO) 22.5 %; MEAN CORPUSCULAR HEMOGLOBIN 25.6 pg (27.0-31.0); MEAN CORPUSCULAR HGB CONC 31.7 g/dL (32.0-36.0); MEAN CORPUSCULAR VOLUME 80.6 fL (81.0-99.0); MEAN PLATELET VOLUME 10.4 fL (7.9-10.8); MONOCYTES # (AUTO) 0.4 10^3/uL (0.0-1.0); MONOCYTES % (AUTO) 4.8 %; NEUTROPHILS # (AUTO) 5.3 10^3/uL (1.5-6.6); NEUTROPHILS % (AUTO) 71.2 %; PLT - PLATELET COUNT 301 10^3/uL (130-450); RED BLOOD COUNT 4.54 10^6/uL (4.20-5.40); RED CELL DISTRIBUTION WIDTH 16.9 % (12.0-15.0); WHITE BLOOD COUNT 7.4 x10^3/uL (4.8-10.8)
[2021-05-02 19:02] LABS: ALBUMIN 3.6 g/dL (3.2-5.5); BILIRUBIN,TOTAL 0.9 mg/dL (0.2-1.0); CALCIUM 9.6 mg/dL (8.5-10.3); CREATININE 1.8 mg/dL (0.4-1.0); POTASSIUM 3.2 mmol/L (3.5-5.0); TOTAL PROTEIN 7.1 g/dL (6.7-8.2)
== END 2021-05-02 11:55 | disposition home or self-care (01) ==
LOC: LAB.N 11:54
PROVIDERS: ATTEND Nurse Practitioner Gerontology
DX: R06.2 Wheezing (principal); R05.9 Cough, unspecified
CPT/HCPCS: 36415; 80053; 83880; 85025

== ENCOUNTER 2021-05-07 13:08 | Emergency (ER) | payer MEDICARE, OTHER ==
[2021-05-07] MEDS ORDERED: SODIUM CHLORIDE 0.9% 1,000 ML IV STA ×2 (13:27→14:50)
--- NOTE | 2021-05-07 13:49 | XRAY Report ---
PROCEDURE: Chest 1 View X-Ray INDICATIONS: chest pain TECHNIQUE: One view of the chest was acquired. COMPARISON: 05/02/2021 FINDINGS: Surgical changes and devices: None. Lungs and pleura: No pleural effusions or pneumothorax. Increased, moderate to severe diffuse reticu lonodular pulmonary opacity. Mediastinum: Mediastinal contours appear normal. Heart size is normal. Bones and chest wall: No suspicious bony lesions. Overlying soft tissues appear unremarkable. IMPRESSION: Increased, moderate to severe bilateral edema versus pneumonia. Reviewed by: Morgan Balderas MD on 05/07/2021 1:48 PM PDT Approved by: Morgan Balderas MD on 05/07/2021 1:48 PM PDT Station ID: [id number]
[2021-05-07 13:52] LABS: BASOPHILS % (AUTO) 0.1 %; EOSINOPHILS % (AUTO) 0.1 %; HCT - HEMATOCRIT 35.8 % (37.0-47.0); HGB - HEMOGLOBIN 11.9 g/dL (12.0-16.0); INR 1.3 (0.8-1.2); LYMPHOCYTES # (AUTO) 2.2 10^3/uL (1.5-3.5); LYMPHOCYTES % (AUTO) 25.7 %; MEAN CORPUSCULAR HEMOGLOBIN 26.3 pg (27.0-31.0); MEAN CORPUSCULAR HGB CONC 33.2 g/dL (32.0-36.0); MONOCYTES # (AUTO) 0.7 10^3/uL (0.0-1.0); MONOCYTES % (AUTO) 7.6 %; NEUTROPHILS # (AUTO) 5.7 10^3/uL (1.5-6.6); NEUTROPHILS % (AUTO) 66.3 %; PLT - PLATELET COUNT 330 10^3/uL (130-450); PT - PROTHROMBIN TIME 14.3 secs (9.9-12.6); RED BLOOD COUNT 4.53 10^6/uL (4.20-5.40); RED CELL DISTRIBUTION WIDTH 16.4 % (12.0-15.0); WHITE BLOOD COUNT 8.6 x10^3/uL (4.8-10.8)
[2021-05-07 14:00] LABS: ALBUMIN 3.6 g/dL (3.2-5.5); ALBUMIN/GLOBULIN RATIO 1.1 (1.0-2.2); BILIRUBIN,TOTAL 0.8 mg/dL (0.2-1.0); CALCIUM 9.6 mg/dL (8.5-10.3); CREATININE 1.9 mg/dL (0.4-1.0); POTASSIUM 2.9 mmol/L (3.5-5.0); TOTAL PROTEIN 6.9 g/dL (6.7-8.2)
--- NOTE | 2021-05-07 14:46 | CT Report ---
PROCEDURE: CT brain without contrast INDICATIONS: 76-year-old female with altered mental status and history of Alzheimer's disease TECHNIQUE: Noncontrast 4.5 mm thick angled axial sections acquired from the foramen magnum to the vertex. For r adiation dose reduction, the following was used: automated exposure control, adjustment of mA and/or kV according to patient size. COMPARISON: 08/02/2018 FINDINGS: Cerebrum, Cerebellum and Brainstem: Moderate cerebral and cerebellar atrophy as well as moderate mul tifocal hypoattenuation in the deep and subcortical white matter present. No acute hemorrhage or mas s effect. Carvalho-white distinction is preserved throughout the exam. Basal cisterns and foramen magnu m are clear. Ventricles: Appropriate in size and position given the amount of cerebral atrophy. No evidence of h ydrocephalus. Skull Base: The bony sella, pituitary gland and infundibulum are unremarkable. Clivus and craniover tebral relationships are appropriate. Visualized portions of external auditory canals and tympanic c avities are within normal limits. Calvarium and Scalp: No scalp soft tissue swelling. The underlying calvarium is intact without skul l fracture or lytic lesion. Paranasal Sinuses: Unremarkable as visualized. No mucosal thickening or retention cyst noted. Mastoids: Unremarkable as visualized. No mastoid effusion present. Other: Atherosclerotic calcification in the cavernous portions of the distal internal carotid arteri es are noted. IMPRESSION: 1. Atrophy and multifocal white matter chronic ischemic change without acute hemorrhage or mass effe ct. Reviewed by: Shayne Walters MD on 05/07/2021 1:44 PM MICHAEL Approved by: Shayne Walters MD on 05/07/2021 1:44 PM AKDT Station ID: [id number]
--- NOTE | 2021-05-07 15:46 | ED Physician Documentation ---
History of Present Illness - Stated complaint Stated Complaint: SOA - Chief complaint Chief Complaint: Neuro - History obtained from History obtained from: Patient, Family - Additonal information Additional information: The patient is brought to the emergency department by her sister for chief complaint of confusion and labored respirations. The sister states that the patient has some dementia and lives at [facility]. About a week ago, she developed some shortness of breath and a cough and was seen a couple days later and started on antibiotics for possible pneumonia. The patient actually has shown significant improvement in her breathing since then. She still has mild laboring respirations, but is breathing much easier than she was. The patient has also been on some prednisone. Sister brought the patient here today, however, because she has seemed confused [place] several days. She will acknowledge that somebody has spoken to her, but if the patient's asked her commanded to do something, she does not seem to be able to comprehend the commander request and follow through with the appropriate action. The sister states as an example that yesterday, the patient was at her doctor's office and was asked to step forward. She stated "okay", but then just did there, looking confused. The sister also states that when she wanted the patient to get in the car, the patient did not seem to know exactly how to execute the function. Patient has been ambulatory and without focal motor deficits. Sister has not noticed any facial droop or other cranial nerve dysfunction. At baseline, the patient has Alzheimer's and requires assistance with remembering how to do basic things. She can take some part in a conversation if guided to do so, but usually, does not comprehend enough to fully take part. Sister states that the patient has not had any fevers recently. No complaints of dysuria, though the patient does not always articulate her feelings very well. There is been no vomiting or diarrhea. Patient's appetite has been normal. The sister does note that the patient chronically does not drink enough water and drinks mainly diet Pepsi. No other complaints at this time. Review of Systems Ten Systems: 10 systems reviewed and negative Constitutional: reports: Reviewed and negative Eyes: reports: Reviewed and negative Ears: reports: Reviewed and negative Nose: reports: Reviewed and negative Throat: reports: Reviewed and negative Cardiac: reports: Reviewed and negative Respiratory: reports: Dyspnea (Improved) GI: reports: Reviewed and negative : reports: Reviewed and negative Skin: reports: Reviewed and negative Musculoskeletal: reports: Reviewed and negative Neurologic: reports: Confused Psychiatric: reports: Reviewed and negative Endocrine: reports: Reviewed and negative Immunocompromised: reports: Reviewed and negative PD PAST MEDICAL HISTORY - Past Medical History Cardiovascular: Hypertension, High cholesterol Respiratory: COPD Neuro: TIA Endocrine/Autoimmune: Type 2 diabetes GI: Chronic diarrhea 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 HEENT: None Psych: None Musculoskeletal: Osteopenia Derm: None - Past Surgical History Past Surgical History: Yes General: Cholecystectomy, Appendectomy Ortho: Rotator cuff repair, Other HEENT: Tonsil/Adenoidectomy - Present Medications Home Medications: Ambulatory Orders Medication Instructions Recorded Confirmed Acetaminophen [Tylenol Extra 1,000 mg PO Q6H PRN 08/02/18 05/07/21 Strength] Atorvastatin [Lipitor] 10 mg PO HS 08/02/18 05/07/21 Cetirizine [ZyrTEC] 10 mg PO QPM 08/02/18 05/07/21 Cholestyramine [Questran] 4 gm PO DAILY PRN 08/02/18 05/07/21 Ciclopirox 1 applic TOP QPM 08/02/18 05/07/21 Ciclopirox Olamine [Ciclopirox] 1 applic TOP DAILY 08/02/18 05/07/21 Donepezil [Aricept] 5 mg PO QPM 08/02/18 08/02/18 Multivitamin,Therapeutic [Thera] 1 each PO DAILY 08/02/18 05/07/21 Turmeric/Turmeric Root Extract 1 each PO DAILY 08/02/18 05/07/21 [Turmeric 500 mg Capsule] amLODIPine [Norvasc] 10 mg PO DAILY 08/02/18 05/07/21 Cholecalciferol (Vitamin D3) 50 mcg PO DAILY 05/07/21 05/07/21 [Vitamin D3] Furosemide [Lasix] 20 mg PO DAILY #20 tablet 05/07/21 HYDROcod/ACETAM 5/325 [[place] 5/325] 1 tablet PO Q4HR PRN 05/07/21 05/07/21 Ibuprofen [Motrin] 600 mg PO Q6H PRN 05/07/21 05/07/21 Losartan Potassium 12.5 mg PO DAILY 05/07/21 05/07/21 Melatonin 1 mg PO HS 05/07/21 05/07/21 Potassium Chloride [K-Dur] 20 meq PO BIDWM #20 tablet 05/07/21 Sodium Bicarbonate 650 mg ORAL DAILY PRN 05/07/21 05/07/21 Triamterene/Hdyrochlor 37.5/25 1 each PO DAILY 05/07/21 05/07/21 [Dyazide] glipiZIDE [Glucotrol] 2.5 mg PO BID 05/07/21 05/07/21 levoFLOXacin [Levofloxacin] 500 mg PO DAILY 05/07/21 05/07/21 predniSONE [Deltasone] 40 mg PO DAILY 05/07/21 05/07/21 - Allergies Allergies/Adverse Reactions: Allergies Allergy/AdvReac Type Severity Reaction Status Date / Time No Known Allergies Allergy Unknown Verified 05/07/21 13:14 - Social History Does the pt smoke?: No Smoking Status: Never smoker Does the pt drink ETOH?: Yes Does the pt have substance abuse?: No - Immunizations Immunizations are current?: Yes PD ED PE NORMAL - Vitals Vital signs reviewed: Yes - General General: No acute distress, Well developed/nourished, Other (Alert, oriented to self, answer simple questions about how she is feeling) - HEENT HEENT: Atraumatic, PERRL, EOMI, Moist mucous membranes - Neck Neck: Supple, no meningeal sign - Cardiac Cardiac: RRR, No murmur, Strong equal pulses - Respiratory Respiratory: No respiratory distress, Other (Good air movement bilaterally, mild rales in bilateral lung bases.) - Abdomen Abdomen: Normal bowel sounds, Soft, Non tender, Non distended - Derm Derm: Warm and dry - Extremities Extremities: No deformity - Neuro Neuro: Alert and oriented X 3 - Psych Psych: Normal mood, Normal affect Results - Vitals Vitals: Oxygen O2 Source Room air - Labs Labs: Laboratory Tests 05/07/21 05/07/21 05/07/21 13:39 13:39 13:39 WBC 8.6 RBC 4.53 Hgb 11.9 L Hct 35.8 L MCV 79.0 L MCH 26.3 L MCHC 33.2 RDW 16.4 H Plt Count 330 MPV 10.0 Neut # (Auto) 5.7 Lymph # (Auto) 2.2 [place] # (Auto) 0.7 Eos # (Auto) 0.0 Baso # (Auto) 0.0 Absolute Nucleated RBC 0.00 Nucleated RBC % 0.0 PT 14.3 H INR 1.3 H Sodium 135 Potassium 2.9 L Chloride 101 Carbon Dioxide 22 Anion Gap 12.0 BUN 43 H Creatinine 1.9 H Estimated GFR (MDRD) 26 L Glucose 157 H Calcium 9.6 Total Bilirubin 0.8 AST 25 ALT 21 Alkaline Phosphatase 87 B-Natriuretic Peptide Total Protein 6.9 Albumin 3.6 Globulin 3.3 Albumin/Globulin Ratio 1.1 Lipase 66 H Urine Color Urine Clarity Urine pH Ur Specific [place] Urine Protein Urine Glucose (UA) Urine Ketones Urine Occult Blood Urine Nitrite Urine Bilirubin Urine Urobilinogen Ur Leukocyte Esterase Urine RBC Urine WBC Ur Epithelial Cells Ur Squamous Epith Cells Urine Bacteria Ur Microscopic Review Urine Culture Comments Nasal Adenovirus (PCR) Nasal B. parapertussis DNA (PCR) Nasal Coronavir 229E PCR Nasal Coronavir HKU1 PCR Nasal Coronavir NL63 PCR Nasal Coronavir OC43 PCR Nasal Enterovir/Rhinovir PCR Nasal Influenza B PCR Nasal Influenza A PCR Nasal Parainfluen 1 PCR Nasal Parainfluen 2 PCR Nasal Parainfluen 3 PCR Nasal Parainfluen 4 PCR Nasal RSV (PCR) Nasal B.pertussis DNA PCR Nasal C.pneumoniae (PCR) Nicolas Human Metapneumo PCR Nasal M.pneumoniae (PCR) Nasal SARS-CoV-2 (PCR) 05/07/21 05/07/21 05/07/21 13:39 15:37 15:48 WBC RBC Hgb Hct MCV MCH MCHC RDW Plt Count MPV Neut # (Auto) Lymph # (Auto) [place] # (Auto) Eos # (Auto) Baso # (Auto) Absolute Nucleated RBC Nucleated RBC % PT INR Sodium Potassium Chloride Carbon Dioxide Anion Gap BUN Creatinine Estimated GFR (MDRD) Glucose Calcium Total Bilirubin AST ALT Alkaline Phosphatase B-Natriuretic Peptide 1436 H Total Protein Albumin Globulin Albumin/Globulin Ratio Lipase Urine Color YELLOW Urine Clarity CLEAR Urine pH 6.0 Ur Specific [place] 1.025 Urine Protein >=300 H Urine Glucose (UA) 250 H Urine Ketones NEGATIVE Urine Occult Blood MODERATE H Urine Nitrite NEGATIVE Urine Bilirubin NEGATIVE Urine Urobilinogen 0.2 (NORMAL) Ur Leukocyte Esterase NEGATIVE Urine RBC 6-10 H Urine WBC 4-5 Ur Epithelial Cells FEW Transitional Ur Squamous Epith Cells RARE Squamous Urine Bacteria None Seen Ur Microscopic Review INDICATED Urine Culture Comments NOT INDICATED Nasal Adenovirus (PCR) NOT DETECTED Nasal B. parapertussis DNA (PCR) NOT DETECTED Nasal Coronavir 229E PCR NOT DETECTED Nasal Coronavir HKU1 PCR NOT DETECTED Nasal Coronavir NL63 PCR NOT DETECTED Nasal Coronavir OC43 PCR NOT DETECTED Nasal Enterovir/Rhinovir PCR NOT DETECTED Nasal Influenza B PCR NOT DETECTED Nasal Influenza A PCR NOT DETECTED Nasal Parainfluen 1 PCR NOT DETECTED Nasal Parainfluen 2 PCR NOT DETECTED Nasal Parainfluen 3 PCR NOT DETECTED Nasal Parainfluen 4 PCR NOT DETECTED Nasal RSV (PCR) NOT DETECTED Nasal B.pertussis DNA PCR NOT DETECTED Nasal C.pneumoniae (PCR) NOT DETECTED Nicolas Human Metapneumo PCR NOT DETECTED Nasal M.pneumoniae (PCR) NOT DETECTED Nasal SARS-CoV-2 (PCR) NOT DETECTED - Rads (name of study) CT head Radiology: Final report received, EMP read indepedently, See rad report (nad) Chest XR Radiology: Final report received, EMP read indepedently, See rad report PD MEDICAL DECISION MAKING - ED course Complexity details: reviewed results, re-evaluated patient, considered differential, d/w patient, d/w family ED course: Her sister said she never drinks enough water and that she was likely dehydrated, so she was started on IV fluids. The patient overall looked fairly good, though she was confused. It seemed as though she was quite confused at baseline, but now having some trouble with executive function. She had still had some mild rales at the bases of her lungs, but overall, did not appear to be in respiratory distress and spoke easily without becoming dyspneic. Her oxygen saturation was in the mid 90s. The patient was worked up with labs, chest x- ray, and CT scan of the head. CT was unremarkable. Her x-ray, surprisingly, showed increased interstitial fluid, concerning for CHF, despite the pt's well- appearance and lack of lower extremity edema. Her IV fluids were stopped. I added a BNP to labs, and it was over 1400. The pt was given a dose of Lasix. Her potassium was low at 2.9, so she was given 40 mEq PO. The pt ambulated to the bathroom without difficulty. I felt she was stable for d/c home. I have prescribed a low dose of furosemide daily for the next week, and potassium supplements, as well. The pt's sister has been advised, regarding the need for pt to have follow-up with her PCP within the week to re-evaluate. We have discussed the usual indications for return. Departure - Departure Disposition: 01 Home, Self Care Clinical Impression: Dehydration, Hypokalemia CHF (congestive heart failure) Qualifiers: Heart failure type: unspecified Heart failure chronicity: acute on chronic Qualified Code(s): I50.9 - Heart failure, unspecified Condition: Stable Instructions: ED CHF General, ED Dehydration, ED Potassium Deficiency Prescriptions: Potassium Chloride [K-Dur] 20 meq PO BIDWM #20 tablet Furosemide [Lasix] 20 mg PO DAILY #20 tablet Comments: Overall, your labs look fairly good, though your potassium is quite low. Your lungs sound good and your oxygen saturation is reasonable, but your chest x-ray does show some extra fluid in your lungs. You have been started on an extra water pill for this, as well as the potassium supplement from the emergency department. It is important that you call first thing tomorrow to schedule follow-up appointment with your doctor to recheck your potassium in 5 days to week. You should also talk to your doctor at this time about whether or not you should stay on the extra water pill, or whether you should go back to your usual medication regimen. There is no evidence of stroke today, nor do you have an infection at this point in time. Discharge Date/Time: 05/07/21 18:45
[2021-05-07 15:49] LABS: BILIRUBIN,URINE NEGATIVE (NEGATIVE); GLUCOSE, URINE (UA) 250 mg/dL (NEGATIVE); KETONES,URINE (UA) NEGATIVE (NEGATIVE); LEUKOCYTE ESTERASE, URINE NEGATIVE (NEGATIVE); NITRITE,URINE NEGATIVE (NEGATIVE); OCCULT BLOOD,URINE MODERATE (NEGATIVE); PROTEIN,URINE >=300 mg/dL (NEGATIVE); UROBILINOGEN,URINE 0.2 (NORMAL) E.U./dL (NORMAL)
[2021-05-07 15:58] LABS: CLARITY,URINE CLEAR (CLEAR)
[2021-05-07 16:08] VITALS: BP 197/106
[2021-05-07 16:10] LABS: EPITHELIAL CELLS,UR FEW Transitional /HPF (<= Few); SQUAMOUS EPITHELIAL CELL,UR RARE Squamous (<= Few)
[2021-05-07 16:11] LABS: BACTERIA,URINE None Seen /HPF (None Seen)
[2021-05-07] MEDS ORDERED: FUROSEMIDE 40 MG/4 ML VIAL IVP STA (16:18)
[2021-05-07] MEDS ORDERED: POTASSIUM CHLORIDE 20 MEQ TABLET PO STA (16:34)
[2021-05-07 16:53] LABS: B. PARAPERTUSSIS- RESP PCR PAN NOT DETECTED; B. PERTUSSIS- RESP PCR PANEL NOT DETECTED; C. PNEUMONIAE- RESP PCR PANEL NOT DETECTED; CORONAVIRUS 229E-RESP PCR NOT DETECTED; CORONAVIRUS HKU1-RESP PCR NOT DETECTED; CORONAVIRUS NL63-RESP PCR NOT DETECTED; CORONAVIRUS OC43-RESP PCR NOT DETECTED; HUMAN METAPNEUMOVIRUS NOT DETECTED; INFLUENZA A- RESP PCR PANEL NOT DETECTED; INFLUENZA B - RESP PCR PANEL NOT DETECTED; M. PNEUMONIAE- RESP PCR PANEL NOT DETECTED; PARAINFLUENZA VIRUS 1 NOT DETECTED; PARAINFLUENZA VIRUS 2 NOT DETECTED; PARAINFLUENZA VIRUS 3 NOT DETECTED; PARAINFLUENZA VIRUS 4 NOT DETECTED; RHINOVIRUS/ENTEROVIRUS NOT DETECTED; RSV- RESP PCR PANEL NOT DETECTED; SARS-CoV-2 -RESP PCR PANEL NOT DETECTED
== END 2021-05-07 18:45 | disposition home or self-care (01) ==
LOC: ED 13:08
DX: E86.0 Dehydration (principal); R41.0 Disorientation, unspecified; E87.6 Hypokalemia; I11.0 Hypertensive heart disease with heart failure; I50.9 Heart failure, unspecified; E11.9 Type 2 diabetes mellitus without complications; Z79.84 Long term (current) use of oral hypoglycemic drugs; Z20.822 Contact with and (suspected) exposure to COVID-19
CPT/HCPCS: 36415; 70450; 71045; 80053; 81001; 83690; 83880; 85025; 85610; 87631; 96361; 96374; 99283; 99284; A9270; 0202U; 81003; 87086

== ENCOUNTER 2021-05-13 17:50 | Outpatient (CLI) | payer MEDICARE, OTHER | END 2021-05-13 17:51 | disposition critical access hospital (66) | LOC: EMS 17:50 | DX: R41.0 Disorientation, unspecified (principal) | CPT/HCPCS: A0425; A0429 ==

== ENCOUNTER 2021-05-13 18:02 | Emergency (ER) | payer MEDICARE, OTHER ==
--- NOTE | 2021-05-13 18:12 | ED Physician Documentation ---
History of Present Illness - Stated complaint Stated Complaint: AMS - History obtained from History obtained from: Patient, EMS - History of Present Illness Timing: Today Pain level max: 0 Pain level now: 0 - Additonal information Additional information: Patient is a 76-year-old female brought in by EMS today for altered mental status. She lives at [facility], reportedly at dinner she was acting strangely and not like herself. Unknown last normal. No focal neurological deficits. EMS states she was not speaking when they arrived. Patient is awake and verbal now. She states that she feels normal and she has no chest pain, shortness of breath, numbness or tingling. 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 HEENT: None Psych: None Musculoskeletal: Osteopenia Derm: None - Past Surgical History Past Surgical History: Yes General: Cholecystectomy, Appendectomy Ortho: Rotator cuff repair, Other HEENT: Tonsil/Adenoidectomy - Present Medications Home Medications: Ambulatory Orders Medication Instructions Recorded Confirmed Acetaminophen [Tylenol Extra 1,000 mg PO Q6H PRN 08/02/18 05/07/21 Strength] Atorvastatin [Lipitor] 10 mg PO HS 08/02/18 05/07/21 Cetirizine [ZyrTEC] 10 mg PO QPM 08/02/18 05/07/21 Cholestyramine [Questran] 4 gm PO DAILY PRN 08/02/18 05/07/21 Ciclopirox 1 applic TOP QPM 08/02/18 05/07/21 Ciclopirox Olamine [Ciclopirox] 1 applic TOP DAILY 08/02/18 05/07/21 Donepezil [Aricept] 5 mg PO QPM 08/02/18 08/02/18 Multivitamin,Therapeutic [Thera] 1 each PO DAILY 08/02/18 05/07/21 Turmeric/Turmeric Root Extract 1 each PO DAILY 08/02/18 05/07/21 [Turmeric 500 mg Capsule] amLODIPine [Norvasc] 10 mg PO DAILY 08/02/18 05/07/21 Cholecalciferol (Vitamin D3) 50 mcg PO DAILY 05/07/21 05/07/21 [Vitamin D3] Furosemide [Lasix] 20 mg PO DAILY #20 tablet 05/07/21 HYDROcod/ACETAM 5/325 [[place] 5/325] 1 tablet PO Q4HR PRN 05/07/21 05/07/21 Ibuprofen [Motrin] 600 mg PO Q6H PRN 05/07/21 05/07/21 Losartan Potassium 12.5 mg PO DAILY 05/07/21 05/07/21 Melatonin 1 mg PO HS 05/07/21 05/07/21 Potassium Chloride [K-Dur] 20 meq PO BIDWM #20 tablet 05/07/21 Sodium Bicarbonate 650 mg ORAL DAILY PRN 05/07/21 05/07/21 Triamterene/Hdyrochlor 37.5/25 1 each PO DAILY 05/07/21 05/07/21 [Dyazide] glipiZIDE [Glucotrol] 2.5 mg PO BID 05/07/21 05/07/21 levoFLOXacin [Levofloxacin] 500 mg PO DAILY 05/07/21 05/07/21 predniSONE [Deltasone] 40 mg PO DAILY 05/07/21 05/07/21 - Allergies Allergies/Adverse Reactions: Allergies Allergy/AdvReac Type Severity Reaction Status Date / Time No Known Allergies Allergy Unknown Verified 05/07/21 13:14 - Social History Does the pt smoke?: No Smoking Status: Never smoker Does the pt drink ETOH?: Yes Does the pt have substance abuse?: No - Immunizations Immunizations are current?: Yes PD ED PE NORMAL - Vitals Vital signs reviewed: Yes - General General: No acute distress, Well developed/nourished, Other (Alert, oriented to self only) - HEENT HEENT: Atraumatic, PERRL, Moist mucous membranes, Pharynx benign - Neck Neck: Supple, no meningeal sign - Cardiac Cardiac: RRR - Respiratory Respiratory: No respiratory distress, Clear bilaterally - Abdomen Abdomen: Soft, Non tender, Non distended - Derm Derm: Warm and dry - Extremities Extremities: No edema, No calf tenderness / cord - Neuro Neuro: Other (Alert, oriented to self) Eye Opening: Spontaneous Motor: Obeys Commands Verbal: Confused GCS Score: 14 Results - Vitals Vitals: Vital Signs - 24 hr 05/13/21 05/13/21 05/13/21 18:20 18:27 19:27 Temperature 36.2 C L 36.2 C L Heart Rate 98 98 80 Respiratory 16 16 16 Rate Blood Pressure 103/88 H 103/88 H 127/99 H O2 Saturation 98 98 99 05/13/21 05/13/21 05/13/21 19:30 20:30 21:00 Temperature Heart Rate 80 74 74 Respiratory 16 15 15 Rate Blood Pressure 127/99 H 125/70 115/71 O2 Saturation 99 100 100 05/13/21 05/13/21 21:30 21:55 Temperature Heart Rate 73 73 Respiratory 15 15 Rate Blood Pressure 124/70 124/70 O2 Saturation 96 96 Oxygen O2 Source Room air - Labs Labs: Laboratory Tests 05/13/21 05/13/21 19:02 19:02 WBC 8.5 RBC 4.70 Hgb 12.3 Hct 38.1 MCV 81.1 MCH 26.2 L MCHC 32.3 RDW 16.2 H Plt Count 248 MPV 10.1 Neut # (Auto) 5.6 Lymph # (Auto) 2.1 [place] # (Auto) 0.6 Eos # (Auto) 0.1 Baso # (Auto) 0.0 Absolute Nucleated RBC 0.00 Nucleated RBC % 0.0 Sodium 134 L Potassium 4.6 Chloride 101 Carbon Dioxide 23 Anion Gap 10.0 BUN 54 H Creatinine 2.6 H Estimated GFR (MDRD) 18 L Glucose 94 Calcium 9.1 Phosphorus 4.6 Magnesium 2.0 Total Bilirubin 0.5 AST 41 ALT 33 Alkaline Phosphatase 109 Total Protein 6.4 L Albumin 3.4 Globulin 3.0 Albumin/Globulin Ratio 1.1 Lipase 165 H Salicylates < 6.0 Acetaminophen < 10 L Ethyl Alcohol < 5.0 - Rads (name of study) Head CT Radiology: Final report received, EMP read contemporaneously, See rad report (No acute abnormality) PD MEDICAL DECISION MAKING - ED course Complexity details: reviewed results, re-evaluated patient, considered different ial, d/w patient, d/w family ED course: 76-year-old female with dementia brought in for altered mental status. Was found to have acute renal insufficiency and dehydration. Her sister arrived in the emergency department and confirmed she is at her normal mental baseline. We discussed obtaining a catheterized urine sample for potential UTI, sister is concerned that this would potentially traumatize the patient. Given that she is afebrile, not currently altered mental status and no leukocytosis, I think it is reasonable to skip this at this time. Symptoms did seem to resolve with administration of IV fluids. Sister states that the patient has not been eating and drinking well lately. Patient will follow up with her doctor for further care. Family counseled regarding signs and symptoms for which I believe and urgent re-evaluation would be necessary. Family with good understanding of and agreement to plan and is comfortable going home at this time This document was made in part using voice recognition software. While efforts are made to proofread this document, sound alike and grammatical errors may occur. Departure - Departure Disposition: 01 Home, Self Care Clinical Impression: Dehydration Dementia Qualifiers: Dementia type: unspecified type Dementia behavioral disturbance: without behavioral disturbance Qualified Code(s): F03.90 - Unspecified dementia without behavioral disturbance Condition: Stable Instructions: ED Dehydration, ED Dementia Caregiver Support Follow-Up: CHRIS DOHERTY ARNP [Primary Care Provider] - Within 1 week Comments: Drink plenty of water. Return if you worsen. Your laboratory testing and head CT did not show any acute abnormalities today. Please follow-up with your doctor for further care You can also look at fidget aprons for dementia online as these may help with her sensory stimulation Discharge Date/Time: 05/13/21 21:55 NIHSS - Time Time: 18:15 - Level of Consciousness Level of consciousness: (0) Alert, Keenly responsive LOC Questions: (0) Answers both Q's correct LOC Commands: (0) Performs both correctly - Gaze Best Gaze: (0) Normal - Visual Visual: (0) No loss - Facial Palsy Facial Palsy: (0) Normal, symmetrical movement - Motor Arms (both separate) Motor Arm (right): (0) No drift Motor Arm (left): (0) No drift - Motor Legs (both separate) Motor Leg (right): (0) No drift Motor Leg (left): (0) No drift - Limb Ataxia Limb Ataxia: (0) Absent - Sensory Sensory: (0) Normal - Best Language Best Language: (0) No aphasia - Dysarthria Dysarthria: (0) Normal - Extinction and Inattention (formally neg Extinction and inattention: (0) No abnormality - Total Score/Results Total Score/Result: 0
--- NOTE | 2021-05-13 19:07 | CT Report ---
PROCEDURE: HEAD WO INDICATIONS: altered mental status TECHNIQUE: Noncontrast 4.5 mm thick angled axial sections acquired from the foramen magnum to the vertex. For r adiation dose reduction, the following was used: automated exposure control, adjustment of mA and/or kV according to patient size. COMPARISON: 05/07/2021. FINDINGS: Image quality: Excellent. CSF spaces: Basal cisterns are patent. No extra-axial fluid collections. Ventricles are normal in size and shape. Brain: No midline shift. No intracranial masses or hemorrhage. Carvalho-white matter interface is norm al. Age-related volume loss and moderate to severe small vessel ischemic change. Skull and face: Calvarium and visualized facial bones are intact, without suspicious lesions. Sinuses: Visualized sinuses and mastoids are clear. IMPRESSION: 1. Age-related volume loss and moderate to severe small vessel ischemic change. 2. No evidence acute stroke, hemorrhage, or mass. Reviewed by: Demarco Cabrera MD on 05/13/2021 7:06 PM PDT Approved by: Demarco Cabrera MD on 05/13/2021 7:06 PM PDT Station ID: [id number]
[2021-05-13 19:09] LABS: BASOPHILS % (AUTO) 0.4 %; EOSINOPHILS # (AUTO) 0.1 10^3/uL (0.0-0.7); EOSINOPHILS % (AUTO) 1.2 %; HCT - HEMATOCRIT 38.1 % (37.0-47.0); HGB - HEMOGLOBIN 12.3 g/dL (12.0-16.0); LYMPHOCYTES # (AUTO) 2.1 10^3/uL (1.5-3.5); LYMPHOCYTES % (AUTO) 25.2 %; MEAN CORPUSCULAR HEMOGLOBIN 26.2 pg (27.0-31.0); MEAN CORPUSCULAR HGB CONC 32.3 g/dL (32.0-36.0); MEAN CORPUSCULAR VOLUME 81.1 fL (81.0-99.0); MEAN PLATELET VOLUME 10.1 fL (7.9-10.8); MONOCYTES # (AUTO) 0.6 10^3/uL (0.0-1.0); MONOCYTES % (AUTO) 7.4 %; NEUTROPHILS # (AUTO) 5.6 10^3/uL (1.5-6.6); NEUTROPHILS % (AUTO) 65.4 %; PLT - PLATELET COUNT 248 10^3/uL (130-450); RED CELL DISTRIBUTION WIDTH 16.2 % (12.0-15.0); WHITE BLOOD COUNT 8.5 x10^3/uL (4.8-10.8)
[2021-05-13 19:22] LABS: ACETAMINOPHEN < 10 ug/mL (10-30); ALBUMIN 3.4 g/dL (3.2-5.5); ALBUMIN/GLOBULIN RATIO 1.1 (1.0-2.2); ALKALINE PHOSPHATASE 109 IU/L (42-121); ALT ALANINE AMINOTRANSFERASE 33 IU/L (10-60); AST ASPARTATE AMINOTRANSFERASE 41 IU/L (10-42); BILIRUBIN,TOTAL 0.5 mg/dL (0.2-1.0); BUN - BLOOD UREA NITROGEN 54 mg/dL (6-20); CALCIUM 9.1 mg/dL (8.5-10.3); CARBON DIOXIDE - CO2 23 mmol/L (21-32); CHLORIDE 101 mmol/L (101-111); CREATININE 2.6 mg/dL (0.4-1.0); ETOH - ETHANOL < 5.0 mg/dL; GFR - MDRD 18 (>89); GLUCOSE 94 mg/dL (70-100); LIPASE 165 U/L (22-51); PHOSPHORUS 4.6 mg/dL (2.5-4.6); POTASSIUM 4.6 mmol/L (3.5-5.0); SALICYLATE < 6.0 mg/dL; SODIUM 134 mmol/L (135-145); TOTAL PROTEIN 6.4 g/dL (6.7-8.2)
[2021-05-13] MEDS ORDERED: SODIUM CHLORIDE 0.9% 1,000 ML IV STA (19:31)
[2021-05-13 21:54] VITALS: BP 124/70
== END 2021-05-13 21:55 | disposition home or self-care (01) ==
LOC: EDUNIT# → ED 18:02
DX: N28.9 Disorder of kidney and ureter, unspecified (principal); E86.0 Dehydration; F03.90 Unspecified dementia, unspecified severity, without behavioral disturbance, psychotic disturbance, mood disturbance, and anxiety
CPT/HCPCS: 36415; 70450; 80053; 80307; 83690; 83735; 84100; 85025; 96360; 99281; 99284; G0480; 80320; 80329

== ENCOUNTER 2021-05-19 09:30 | Outpatient (CLI) | payer MEDICARE, OTHER ==
--- NOTE | 2021-05-19 16:39 | XRAY Report ---
PROCEDURE: Wrist 3 View LT INDICATIONS: WRIST FRACTURE TECHNIQUE: 3views of the wrist were acquired. COMPARISON: X-ray left wrist, 04/12/2021. FINDINGS: Bones: There is a distal radial metaphyseal fracture with impaction. The alignment is stable. There i s osteopenia. Soft tissues: No suspicious soft tissue calcifications. IMPRESSION: Distal radial metaphyseal fracture with stable alignment. Reviewed by: Rebecca Bridges MD on 05/19/2021 4:37 PM PDT Approved by: Rebecca Bridges MD on 05/19/2021 4:37 PM PDT Station ID: [id number]
== END 2021-05-19 23:59 | disposition home or self-care (01) ==
LOC: DI.WOS 09:30
PROVIDERS: ATTEND Orthopaedic Surgery
DX: S52.532D Colles' fracture of left radius, subsequent encounter for closed fracture with routine healing (principal)

== ENCOUNTER 2021-07-20 15:17 | Outpatient (CLI) | payer MEDICARE, OTHER | END 2021-07-20 15:18 | disposition critical access hospital (66) | LOC: EMS 15:17 | DX: R41.0 Disorientation, unspecified (principal); R29.810 Facial weakness; R53.1 Weakness | CPT/HCPCS: A0425; A0427 ==

== ENCOUNTER 2021-07-20 15:30 | Emergency (ER) | payer MEDICARE, OTHER ==
--- NOTE | 2021-07-20 15:43 | ED Physician Documentation ---
PD HPI FOCAL NEURO - Stated complaint Stated Complaint: CODE STROKE - History obtained from History obtained from: EMS - Additional information Additional information: 76-year-old woman with dementia brought in by ambulance for concern for s pepperkelike symptoms. Last known well at 2 PM today and developed listing to the left and a left facial droop as well as significant confusion. Patient is unable to give me any history due to dementia, but the paramedics report that she is much better in route. Review of the chart shows that she was here for quite similar symptoms 5 days ago and had improvement after IV fluids noting that she had some acute renal insufficiency. Her creatinine on that day, July 15 was 3.0 with a BUN of 40, looks like her usual creatinine is around 1.8-1.9 or so. Reportedly improved improved with IV fluids. Review of Systems Unable to obtain: Confused, Dementia PD PAST MEDICAL HISTORY - Past Medical History Cardiovascular: Hypertension, High cholesterol Respiratory: COPD Neuro: Alzhiemer's, Dementia, TIA Endocrine/Autoimmune: Type 2 diabetes GI: Chronic diarrhea CEMENT SIDE LASTER: None : Incontinence HEENT: None Psych: None Musculoskeletal: Osteopenia Derm: None - Past Surgical History Past Surgical History: Yes General: Cholecystectomy, Appendectomy Ortho: Rotator cuff repair, Other HEENT: Tonsil/Adenoidectomy - Present Medications Home Medications: Ambulatory Orders Medication Instructions Recorded Confirmed Acetaminophen [Tylenol Extra 1,000 mg PO Q6H PRN 08/02/18 07/20/21 Strength] Atorvastatin [Lipitor] 10 mg PO HS 08/02/18 07/20/21 Cetirizine [ZyrTEC] 10 mg PO QPM 08/02/18 07/20/21 Cholestyramine [Questran] 4 gm PO DAILY 08/02/18 07/20/21 Ciclopirox Olamine [Ciclopirox] 1 applic TOP DAILY 08/02/18 07/20/21 Multivitamin,Therapeutic [Thera] 1 each PO DAILY 08/02/18 07/20/21 Turmeric/Turmeric Root Extract 1 each PO DAILY 08/02/18 07/20/21 [Turmeric 500 mg Capsule] amLODIPine [Norvasc] 10 mg PO DAILY 08/02/18 07/20/21 Cholecalciferol (Vitamin D3) 50 mcg PO DAILY 05/07/21 07/20/21 [Vitamin D3] Furosemide [Lasix] 20 mg PO DAILY #20 tablet 05/07/21 07/20/21 HYDROcod/ACETAM 5/325 [[place] 5/325] 1 tablet PO Q4HR PRN 05/07/21 07/20/21 Ibuprofen [Motrin] 600 mg PO Q6H PRN 05/07/21 07/20/21 Losartan Potassium 12.5 mg PO DAILY 05/07/21 07/20/21 Melatonin 1 mg PO HS 05/07/21 07/20/21 Potassium Chloride [K-Dur] 20 meq PO BIDWM #20 tablet 05/07/21 07/20/21 Sodium Bicarbonate 650 mg ORAL DAILY PRN 05/07/21 07/20/21 Triamterene/Hdyrochlor 37.5/25 1 each PO DAILY 05/07/21 07/20/21 [Dyazide] glipiZIDE [Glucotrol] 2.5 mg PO BID 05/07/21 07/20/21 Clopidogrel [Plavix] 75 mg PO DAILY 07/15/21 07/20/21 Aspirin [Aspirin EC] 81 mg PO DAILY #90 07/20/21 - Allergies Allergies/Adverse Reactions: Allergies Allergy/AdvReac Type Severity Reaction Status Date / Time No Known Allergies Allergy Unknown Verified 07/20/21 15:48 - Social History Does the pt smoke?: No Smoking Status: Never smoker Does the pt drink ETOH?: Yes Does the pt have substance abuse?: No - Immunizations Immunizations are current?: Yes PD ED PE NORMAL - Vitals Vital signs reviewed: Yes - General General: No acute distress, Other (She is alert and oriented to person only, when I asked her the year she states it is 1920. She is unable to elaborate on where she is or why she is here.) - HEENT HEENT: PERRL, Other (Mild left facial droop, much better than at first evaluation per the paramedics.). No: EOMI (She is unable to look to the left past midline,) - Neck Neck: Supple, no meningeal sign, No bony TTP - Cardiac Cardiac: RRR, No murmur - Respiratory Respiratory: No respiratory distress, Clear bilaterally - Abdomen Abdomen: Normal bowel sounds, Soft, Non tender - Back Back: No CVA TTP, No spinal TTP - Derm Derm: Normal color, Warm and dry - Neuro Eye Opening: Spontaneous Motor: Obeys Commands Verbal: Confused GCS Score: 14 NIHSS - Time Time: 15:30 - Level of Consciousness Level of consciousness: (0) Alert, Keenly responsive LOC Questions: (2) Answers neither correct LOC Commands: (0) Performs both correctly - Gaze Best Gaze: (1) Partial gaze palsy - Visual Visual: (2) Complete Hemianopia (No response to threat from the left) - Facial Palsy Facial Palsy: (1) Minor paralysis (Left side) - Motor Arms (both separate) Motor Arm (right): (0) No drift Motor Arm (left): (0) No drift - Motor Legs (both separate) Motor Leg (right): (0) No drift Motor Leg (left): (0) No drift - Limb Ataxia Limb Ataxia: (0) Absent - Sensory Sensory: (0) Normal - Best Language Best Language: (1) [id number] - Dysarthria Dysarthria: (0) Normal - Extinction and Inattention (formally neg Extinction and inattention: (1) Visual,tactile,auditory,spatial, or personal inattention - Total Score/Results Total Score/Result: 8 Results - Vitals Vitals: Vital Signs - 24 hr 07/20/21 15:35 Temperature 36.8 C Heart Rate 69 Respiratory 12 Rate Blood Pressure 121/51 L O2 Saturation 95 Oxygen O2 Source Nasal cannula - EKG (time done) 1551 Rate: Rate (enter#) (63) Rhythm: NSR (with ventricular trigeminy) [place]: Normal Intervals: Normal [place] QRS: LVH Ischemia: Normal ST segments Computer interpretation: Agree with computer - Labs Labs: Laboratory Tests 07/20/21 07/20/21 07/20/21 16:14 16:14 16:14 WBC 6.5 RBC 4.54 Hgb 12.0 Hct 37.5 MCV 82.6 MCH 26.4 L MCHC 32.0 RDW 16.0 H Plt Count 192 MPV 9.3 Neut # (Auto) 4.1 Lymph # (Auto) 1.8 [place] # (Auto) 0.4 Eos # (Auto) 0.1 Baso # (Auto) 0.0 Absolute Nucleated RBC 0.00 Nucleated RBC % 0.0 PT 13.7 H INR 1.2 Sodium 138 Potassium 4.0 Chloride 101 Carbon Dioxide 23 Anion Gap 14.0 H BUN 41 H Creatinine 2.6 H Estimated GFR (MDRD) 18 L Glucose 92 Calcium 10.3 Magnesium 2.0 Total Bilirubin 1.0 AST 31 ALT 25 Alkaline Phosphatase 65 Total Protein 7.5 Albumin 4.5 Globulin 3.0 Albumin/Globulin Ratio 1.5 - Rads (name of study) CT head showing volume loss and chronic small vessel ischemic change without acute abnormality Radiology: EMP read contemporaneously PD MEDICAL DECISION MAKING - ED course ED course: 76-year-old woman presents with left-sided deficits which are significantly improved on arrival and subsequent to her head CT completely resolved. This is her third such episode in as many months and the second episode was just 5 days ago. On reevaluation she was back to her baseline. Supportive sister at the bedside. Sister notes that she had a recent MRI showing multiple acute strokes on both sides, I discussed with the sister that this may be consistent with a cardiac source and the sister notes she did have a recent echo but results are unknown. I called Charline Hickey who manages care for [facility] and she will check recent results and call me back. She called back and confirmed results of recent MRI showing moderate sized area of restricted diffusion in the anterolateral left temporal lobe, small focus of restricted diffusion in the anterior superior right frontal lobe, small punctate focus of restricted diffusion in the bilateral frontal and left parietal subcortical white matter all consistent with acute CVAs. She had not had echo or carotid due to transportation difficulties. I discussed all this with her sister who is supportive and at the bedside and reportedly her POA. She confirms that at this point they want medical management only so it does not seem necessary to repeat the carotids or the echo per se. We will add aspirin to her Plavix and she is hydrated here although her blood work is better than her previous visit. Departure - Departure Disposition: 01 Home, Self Care Clinical Impression: Dementia, ANDRIA (acute kidney injury), TIA (transient ischemic attack) Condition: Good Record reviewed to determine appropriate education?: Yes Instructions: ED Dementia Caregiver Support, ED Transient Ischemic Attack Prescriptions: Aspirin [Aspirin EC] 81 mg PO DAILY #90 Comments: It appears that she had a TIA today, this is in addition to another recent TIA and what we can do for this is not too extensive but we can add baby aspirin to her Plavix regimen. I wrote a prescription for this. Return for new or worsening symptoms. Talk with Charline Hickey about follow-up and further steps and also as discussed since her POLST currently shows full code/full care this may need to be revised based on current goals of care.
--- NOTE | 2021-07-20 15:57 | CT Report ---
PROCEDURE: HEAD WO INDICATIONS: CVA/TIA Sx TECHNIQUE: Noncontrast 4.5 mm thick angled axial sections acquired from the foramen magnum to the vertex. For r adiation dose reduction, the following was used: automated exposure control, adjustment of mA and/or kV according to patient size. COMPARISON: 05/13/2021, 05/07/2021, 09/05/2018 FINDINGS: Image quality: There is streak artifact seen through the skull base. CSF spaces: Basal cisterns are patent. No extra-axial fluid collections. Ventricles are normal in size and shape. Brain: No midline shift. No intracranial masses or hemorrhage. Carvalho-white matter interface is norm al. Age-appropriate brain parenchymal volume loss and chronic small vessel ischemic change can be se en. Skull and face: Calvarium and visualized facial bones are intact, without suspicious lesions. Sinuses: Visualized sinuses and mastoids are clear. IMPRESSION: No acute intracranial abnormality can be seen. Age-appropriate brain parenchymal volume loss and chronic small vessel ischemic change can be seen. Reviewed by: Alin Yeboah MD on 07/20/2021 2:56 PM [id number] Approved by: Alin Yeboah MD on 07/20/2021 2:56 PM MICHAEL Station ID: [id number]
[2021-07-20 16:17] LABS: BASOPHILS % (AUTO) 0.3 %; EOSINOPHILS # (AUTO) 0.1 10^3/uL (0.0-0.7); EOSINOPHILS % (AUTO) 1.2 %; HCT - HEMATOCRIT 37.5 % (37.0-47.0); LYMPHOCYTES # (AUTO) 1.8 10^3/uL (1.5-3.5); LYMPHOCYTES % (AUTO) 28.4 %; MEAN CORPUSCULAR HEMOGLOBIN 26.4 pg (27.0-31.0); MEAN CORPUSCULAR VOLUME 82.6 fL (81.0-99.0); MEAN PLATELET VOLUME 9.3 fL (7.9-10.8); MONOCYTES # (AUTO) 0.4 10^3/uL (0.0-1.0); NEUTROPHILS # (AUTO) 4.1 10^3/uL (1.5-6.6); NEUTROPHILS % (AUTO) 63.8 %; PLT - PLATELET COUNT 192 10^3/uL (130-450); RED BLOOD COUNT 4.54 10^6/uL (4.20-5.40); WHITE BLOOD COUNT 6.5 x10^3/uL (4.8-10.8)
[2021-07-20 16:29] LABS: INR 1.2 (0.8-1.2); PT - PROTHROMBIN TIME 13.7 secs (9.9-12.6)
[2021-07-20 16:30] LABS: ALBUMIN 4.5 g/dL (3.2-5.5); ALBUMIN/GLOBULIN RATIO 1.5 (1.0-2.2); CALCIUM 10.3 mg/dL (8.5-10.3); CREATININE 2.6 mg/dL (0.4-1.0); TOTAL PROTEIN 7.5 g/dL (6.7-8.2)
[2021-07-20] MEDS ORDERED: SODIUM CHLORIDE 0.9% 1,000 ML IV STA (16:47)
[2021-07-20] MEDS ORDERED: ASPIRIN 325 MG TABLET PO STA (17:36)
[2021-07-20 17:44] VITALS: BP 135/79
== END 2021-07-20 17:59 | disposition home or self-care (01) ==
LOC: EDUNIT# → ED 15:30
DX: F03.90 Unspecified dementia, unspecified severity, without behavioral disturbance, psychotic disturbance, mood disturbance, and anxiety (principal); G45.9 Transient cerebral ischemic attack, unspecified; N17.9 Acute kidney failure, unspecified; I10 Essential (primary) hypertension; E11.9 Type 2 diabetes mellitus without complications; Z79.84 Long term (current) use of oral hypoglycemic drugs
CPT/HCPCS: 36415; 70450; 80053; 83735; 85025; 85610; 93005; 99284; 99285; A9270

== ENCOUNTER 2022-06-17 09:12 | Outpatient (CLI) | payer MEDICARE, OTHER | END 2022-06-17 23:59 | disposition critical access hospital (66) | LOC: EMS 09:12 | DX: S01.112A Laceration without foreign body of left eyelid and periocular area, initial encounter (principal); R51.9 Headache, unspecified; M79.642 Pain in left hand; W18.30XA Fall on same level, unspecified, initial encounter; Y92.098 Other place in other non-institutional residence as the place of occurrence of the external cause; Z79.02 Long term (current) use of antithrombotics/antiplatelets | CPT/HCPCS: A0425; A0429 ==

== ENCOUNTER 2022-06-17 14:43 | Outpatient (CLI) | payer MEDICARE, OTHER | END 2022-06-17 14:44 | disposition home or self-care (01) | LOC: EMS 14:43 | PROVIDERS: ATTEND Emergency Medicine | DX: R41.0 Disorientation, unspecified (principal); S01.112A Laceration without foreign body of left eyelid and periocular area, initial encounter; W19.XXXA Unspecified fall, initial encounter | CPT/HCPCS: A0425; A0428 ==

== ENCOUNTER 2022-12-08 22:14 | Outpatient (CLI) | payer MEDICARE, OTHER | END 2022-12-08 22:15 | disposition EMS.NT | LOC: EMS 22:14 | DX: R04.0 Epistaxis (principal) ==